=== PATIENT | male | born 1955 | race Caucasian/White ===

== ENCOUNTER 2021-12-13 11:30 | Outpatient (CLI) | payer BC, SELFPAY ==
--- NOTE | ~2021-12-13 | XR_ITS ---
XR knee RT 2V 12/13/2021 11:53 Indication: Chronic right knee pain Procedure: 2 views right knee Comparison: No prior studies for comparison. Findings: There is anatomic alignment. No fracture or traumatic malalignment. No significant joint sp eugene narrowing. Small joint effusion. No foreign bodies. Impression: 1: Small joint effusion. Reviewed, dictated and finalized at location B. Impression: 1: Small joint effusion.
== END 2021-12-13 11:31 | disposition home or self-care (01) ==
LOC: ANHIMG 11:34
PROVIDERS: PCP Family Medicine Adolescent Medicine; Visit Provider Physician Assistant
DX: M25.461 Effusion, right knee (principal)
CPT/HCPCS: 73560

== ENCOUNTER 2023-11-29 11:46 | Emergency (ER) | payer MEDICARE, BC, SELFPAY ==
[2023-11-29] VITALS (28 sets, daily range): BP systolic 142–186; BP diastolic 56–75; PULSE 82–101; RESP 12–24; TEMP 37.1; O2SAT 93–96
--- NOTE | ~2023-11-29 | XR_ITS ---
EXAMINATION: XR chest 2V DATE: 11/29/2023 13:07 INDICATION: Weakness, nausea, vomiting and diarrhea TECHNIQUE: frontal and lateral views of the chest were obtained. COMPARISON: None FINDINGS: The lungs are clear with no focal airspace opacities, pulmonary edema, pleural effusion or pneumothor ax. The cardiomediastinal silhouette is normal. Moderate thoracic and upper lumbar spondylosis with c hronic mild anterior wedging of a few lower thoracic and upper lumbar vertebral bodies. IMPRESSION: 1. No acute cardiopulmonary disease. Reviewed, dictated and finalized at location A.
--- NOTE | ~2023-11-29 | CT_ITS ---
CT abdomen pelvis w con Ordering provider: Xi Mcadams History: 68 years Male with . LLQ tenderness . Comparison: None. Technique: CT abdomen and pelvis with IV and without oral contrast. Automated exposure control and it erative reconstruction technique were employed. The dose-length product was 1528.95 mGy-cm. 100 mL Om nipaque 350 was given IV. Findings: VISUALIZED LOWER CHEST: Dependent atelectatic changes. UPPER ABDOMINAL ORGANS: Liver: Fat infiltration. Hepatomegaly. Multiple small hypodensities in the left and right lobe of the liver with the largest measuring 1.7 cm which may be cysts. Ultrasound confirmation advised. Gallbladder: Cholelithiasis. Spleen: Normal. Stomach/duodenum: Small sliding hiatus hernia. Pancreas: Fat stranding with minimal fluid is seen around the body and tail of the pancreas suggestiv e of pancreatitis. Minimal fluid is also seen inferior to the head and duodenum. No definite collecti on seen. Early possible collection in the left side of the abdomen measuring 5 cm is not excluded.. Adrenals: Prominent left adrenal gland with possible microadenomas. Kidneys: Stones are seen in the left kidney midpole with the largest measuring 5 mm. Bilateral kidney cysts are noted with the largest measures 4.2 cm in the right kidney midpole. Tiny stones are also s een in the right kidney upper and mid pole. PELVIC ORGANS: The bladder is normal. BOWEL AND MESENTERY: Colon: No evidence of diverticulitis. Normal appendix. Small Bowel: Normal. No obstruction. Peritoneum/mesentery: No free air or free fluid. No mesenteric lymphadenopathy. Enlarged lymph nodes are seen around the endometrial anterior spondylolisthesis 1.5 cm and 2.4 cm. RETROPERITONEUM: Mild atheromatous disease of the abdominal aorta. Retroaortic left renal vein is no jessica. No retroperitoneal lymphadenopathy. MUSCULOSKELETAL: Superficial soft tissues: The superficial soft tissues are normal. Bones: Age appropriate degenerative changes of the spine. Old healed fracture in the left lower thora x. Bilateral sacroiliacs. AVN in the right femur is not excluded. Anterolisthesis at the level of L5- S1 with bilateral spondylolysis. IMPRESSION: 1. Pancreatitis involving the body and tail of the pancreas. 2. Inflammatory changes also seen inferior to the patient and the duodenum. Possibility of early col lection in the left upper abdomen is not excluded. Follow-up advised. 3. Lymphadenopathy in the area of hanna hepatis is noted. 4. Fat infiltration of the liver with hepatomegaly and multiple cysts. Ultrasound confirmation advis ed. 5. Cholelithiasis. 6. Bilateral kidney stones with bilateral renal cysts. 7. Small sliding hiatus hernia. Reviewed, dictated and finalized at location A. IMPRESSION: 1. Pancreatitis involving the body and tail of the pancreas. 2. Inflammatory changes also seen inferior to the patient and the duodenum. Po ssibility of early collection in the left upper abdomen is not excluded. Follow -up advised. 3. Lymphadenopathy in the area of hanna hepatis is noted. 4. Fat infiltration of the liver with hepatomegaly and multiple cysts. Ultraso und confirmation advised. 5. Cholelithiasis. 6. Bilateral kidney stones with bilateral renal cysts. 7. Small sliding hiatus hernia.
--- NOTE | 2023-11-29 12:37 | ECG_ITS ---
Test Date: 2023-11-29 12:44:11 Measurements Intervals [place] Rate: 96 P: 21 IN: 158 QRS: -50 QRSD: 121 T: 9 QT: 359 QTc: 454 Interpretive Statements SINUS RHYTHM LEFT ANTERIOR FASCICULAR BLOCK VOLTAGE CRITERIA FOR LVH ABNORMAL ECG No previous ECG available for comparison Electronically Signed On 11-29-2023 15:24:00 CDT by Noé Vela D.O.
[2023-11-29 13:02] LABS: Basophils Percent Auto 0.3 % (0.2-1.2); Eosinophils Percent Auto 0.3 % (0-4.4); Hematocrit 41.5 % (42.0-52.0); Hemoglobin 14.3 g/dL (14.0-18.0); Immature Granulocyte Absolute 0.09 K/mm3 (0.00-0.031); Immature Granulocyte Percent A 0.8 % (0-0.5); Lymphocytes Absolute Auto 1.62 K/mm3 (0.9-3.2); Lymphocytes Percent Auto 15.2 % (18.3-44.2); Mean Corpuscular HGB Conc 34.5 g/dl (32-36); Mean Corpuscular Hemoglobin 31.4 pg (26-34); Mean Platelet Volume 9.9 fl (7.4-10.4); Monocytes Absolute Auto 0.9 K/mm3 (0.1-0.6); Monocytes Percent Auto 8.7 % (2.6-8.5); Neutrophils Percent Auto 74.7 % (45.5-73.1); Platelet Count Result 179 k/mm3 (150-375); Red Blood Count 4.56 M/mm3 (4.6-6.20); Red Cell Distribution Width 12.7 % (11.5-14.5); White Blood Count 10.7 K/mm3 (4.5-10.0)
[2023-11-29 13:11] LABS: Alanine Aminotransferase 69 U/L (6-50); Albumin Level 3.8 g/dL (3.5-5.1); Alkaline Phosphatase 79 U/L (38-126); Anion Gap 10 mmol/L (4-12); Aspartate Amino Transferase 35 U/L (17-59); Bilirubin,Total 1.6 mg/dL (0.2-1.3); Blood Urea Nitrogen 16 mg/dL (9-20); Calcium 8.2 mg/dL (8.4-10.2); Carbon Dioxide 29 mmol/L (22-30); Chloride 90 mmol/L (98-107); Estimated CRCL calculation 91 ml/min; Estimated Glomerular Filt Rate > 60; Glucose 230 mg/dL (65-110); Potassium 3.9 mmol/L (3.4-5.0); Sodium 129 mmol/L (137-145)
--- NOTE | 2023-11-29 13:51 | ED.WEAKNESS ---
HPI - Weakness General Chief complaint: Weakness Stated complaint: weaknes Time Seen by Provider: 11/29/23 13:02 History of Present Illness HPI Narrative: Patient is a 68-year-old male presenting with generalized weakness. His is at bedside and helps with the history. States that he had a GI bug several days ago with vomiting and diarrhea. States that since that time he has only had a very little amount to eat and seems increasingly weaker. He complains of some left lower abdominal pain but otherwise denies complaints other than feeling generally unwell and rundown. Related Data Allergies Allergy/AdvReac Type Severity Reaction Status Date / Time No Known Allergies Allergy Mild Verified 10/05/23 15:43 Review of Systems Review of Systems: All systems reviewed & are unremarkable except as noted in HPI and below PMFSH Past Medical History Medical History Hx of squamous cell carcinoma Neck/Resected 2007 Family History Family History Father Muscular atrophy Mother Breast cancer Grandparent Breast cancer Social History Social History Smoking status: Former smoker Alcohol intake: unknown Exam Narrative: GENERAL: Nontoxic, no acute distress HEAD: Normocephalic, atraumatic. EYES: PERRLA and EOMI. ENT: Mucous membranes a bit dry NECK: Supple. CHEST: Clear to auscultation. No respiratory distress. HEART: Regular rate and rhythm ABDOMEN: Soft, +LLQ tenderness w/o guarding or rebound EXTREMITIES: Normal range of motion. No edema. SKIN: Warm, dry, no rash. NEURO: No focal deficits. Alert and oriented x3. PSYCH: Normal mood and affect. Course Vital Signs Vital signs: Vital Signs Temperature 98.8 F 11/29/23 12:33 Pulse Rate 95 11/29/23 12:33 Blood Pressure 156/56 H 11/29/23 12:33 Pulse Oximetry 95 11/29/23 12:33 Temperature 98.8 F 11/29/23 12:33 Pulse Rate 94 11/29/23 17:00 Respiratory Rate 17 11/29/23 17:00 Blood Pressure 186/69 H 11/29/23 16:31 Pulse Oximetry 95 11/29/23 16:31 MDM - Weakness MDM Narrative Medical decision making narrative: 68-year-old male presenting with generalized weakness. Vitals are within normal limits. EKG per my interpretation shows normal sinus rhythm, no ST elevations or depressions. CT abdomen pelvis is concerning for pancreatitis. His lipase is normal and blood work. White count minimally elevated at 10.7. Patient received IV fluids and was updated on the findings. I offered admission but he declines and states that he wants to p.o. challenge and go home. Patient was able to eat and drink, he has not had any further vomiting and he denies significant pain. He is adamant that he wants to go home, recommend close PCP follow-up. Strict return precautions given. Discharged in stable condition. Differential Diagnosis Differential diagnosis: Likely dehydration and other (weakness, AUBRIE, UTI, pancreatitis, gastroenteritis) Medical Records Attestation: I reviewed the patient's medical records. Lab Data Attestation: I reviewed the patient's lab results. 11/29/23 12:56 11/29/23 12:56 Labs: Lab Results 11/29/23 11/29/23 11/29/23 Range/Units 12:56 13:55 14:41 WBC 10.7 H (4.5-10.0) K/mm3 RBC 4.56 L (4.6-6.20) M/mm3 Hgb 14.3 (14.0-18.0) g/dL Hct 41.5 L (42.0-52.0) % MCV 91.0 (80-100) fl MCH 31.4 (26-34) pg MCHC 34.5 (32-36) g/dl RDW 12.7 (11.5-14.5) % Plt Count 179 (150-375) k/mm3 MPV 9.9 (7.4-10.4) fl Immature Gran % (Auto) 0.8 H (0-0.5) % Neut % (Auto) 74.7 H (45.5-73.1) % Lymph % (Auto) 15.2 L (18.3-44.2) % [place] % (Auto) 8.7 H (2.6-8.5) % Eos % (Auto) 0.3 (0-4.4) % Baso % (Auto) 0.3 (0.2-1.2) % Lymph # (Auto) 1.62 (0.9-3.2) K/m
[2023-11-29] MEDS: SODIUM CHLORIDE 0.9% IV 1,000 ML 999 ML IV CONT ×2 (14:02→15:09)
[2023-11-29 14:15] LABS: Lipase 88 U/L (23-300); Magnesium 2.5 mg/dL (1.6-2.3)
[2023-11-29 14:36] LABS: Influenza A QL RT-PCR Negative (Negative); Influenza B QL RT-PCR Negative (Negative); RSV RNA, RT-PCR Negative (Negative); SARS-CoV-2 RNA PCR Negative (Negative)
[2023-11-29 14:51] LABS: Add Urine Microscopic? YES; Appearance Urine Clear (Clear); Bacteria Urine None Seen /hpf; Bilirubin Urine Negative (Negative); Blood Urine Negative (Negative); Color Urine Dark Yellow (Yellow); Glucose Urine UA Trace mg/dL (Negative); Ketones Urine Trace mg/dL (Negative); Leukocyte Esterase Ur Negative LEU/UL (Negative); Nitrate Urine Negative (Negative); Non Pathogenic Casts 0-2; Protein Urine 2+ mg/dL (Negative); RBC Urine 0-2 /hpf (0-2); Specific Grav Ur 1.042 (1.001-1.035); Squamous Epithelial Cell Urine Occasional /hpf (Few); WBC Urine 0-5 /hpf (0-3); pH Urine 5.5 (5.0-9.0)
--- NOTE | 2023-11-29 16:04 | PC.NURSE ---
Patient given food for PO challenge per verbal order from provider
--- NOTE | 2023-11-29 17:16 | PC.NURSE ---
Patient taken to the restroom via wheelchair
== END 2023-11-29 18:18 | disposition home or self-care (01) ==
PROVIDERS: Emergency Medicine; Emergency Provider Emergency Medicine; PCP Family Medicine Adolescent Medicine
DX: K85.90 Acute pancreatitis without necrosis or infection, unspecified (principal); R53.1 Weakness; Z20.822 Contact with and (suspected) exposure to COVID-19
CPT/HCPCS: 36415; 71046; 74177; 80053; 81001; 83690; 83735; 85025; 87637; 93005; 96360; 96361; 99284; J7030; Q9967

== ENCOUNTER 2024-09-20 19:51 | Inpatient (IN) | payer MEDICARE, BC, SELFPAY ==
--- NOTE | ~2024-09-20 | CT_ITS ---
History: Altered mental status. Bacteremia PROCEDURE: CT head without contrast. COMPARISON: None TECHNIQUE: Axial imaging of the head performed from the skull base to the vertex without IV contrast. Sagittal a nd coronal reformations obtained. DLP: 908 mGy-cm FINDINGS: The ventricles are enlarged. The dilatation of the ventricles is proportional to the degree of sulcal prominence, not uncommon in the senescent brain. Decreased attenuation is identified within the periventricular white matter, likely secondary to micr ovascular ischemic disease, in a patient of this age. There is no mass, mass effect or midline shift. There is no abnormal extra-axial fluid collection or intracranial hemorrhage. Visualized paranasal sinuses are clear. The mastoid air cells are well aerated. No acute displaced fractures within the overlying cranium. Impression: No acute intracranial hemorrhage or suspicious mass effect. Reviewed, dictated and finalized at location A. Impression: No acute intracranial hemorrhage or suspicious mass effect.
--- NOTE | ~2024-09-20 | NM_ITS ---
EXAMINATION: NM_HEPATWOEF_NM DATE: 09/23/2024 13:36 INDICATION: Assess for acute cholecystitis with elevated bilirubin and liver enzymes COMPARISON: None. TECHNIQUE: 5.3 mCi Tc-99m mebrofenin (Choletec) was administered intravenously. Scintigraphic images of the abdomen were obtained for one hour. Additional 4 hour delayed images were obtained. FINDINGS: There is delayed clearance of radiotracer from the blood pool with decreased but still discernible ca rdiac blood pool activity on the 60 minutes of imaging. There is homogeneous tracer uptake by the lito er there is no evident excretion of hepatic activity over the 4 hours of imaging and which given the absence of intra-axial hepatic biliary ductal dilation on the MRCP from one day prior would be consis tent with severe hepatocellular dysfunction. IMPRESSION: 1. Severe hepatocellular dysfunction with no excretion of gallbladder activity rendering assessment for cystic duct obstruction/acute cholecystitis nondiagnostic. Reviewed, dictated and finalized at location A. IMPRESSION: 1. Severe hepatocellular dysfunction with no excretion of gallbladder activity rendering assessment for cystic duct obstruction/acute cholecystitis nondiagno stic.
--- NOTE | ~2024-09-20 | US_ITS ---
Limited abdominal ABDOMINAL ULTRASOUND (Doppler ultrasound interrogation techniques used as needed fo r this exam.) Ordering provider: Frankie Mcgrath MD History: . Total bilirubin is trending up . Comparison: None. FINDINGS: PANCREAS: Normal echotexture and size of the visualized portion. PORTAL VEIN: Hepatopedal flow demonstrated. LIVER: Normal size and increased echogenicity. No perihepatic fluid collections are identified. Cyst is seen in the left lobe of the liver. Hypoechoic area is seen in the dome of the liver measuring 1.4 x 0.9 x 1.2 cm with vascularity.. Further evaluation advised to exclude a mass lesion. BILIARY DUCTS: No intra or extrahepatic biliary dilation. Common bile duct measures 6.4 mm in diamete r which is normal for patient's age. GALLBLADDER: Normal. No stones, sludge, gallbladder wall thickening or pericholecystic fluid. Thickness is 0.3 cm. Negative sonographic Phelan's sign. IVC: Normal. Abdominal aorta: Normal. FREE FLUID: None visualized within the upper abdomen. IMPRESSION: Fat infiltration of the liver. Cyst in the left lobe of the liver. Hypoechoic area in the dome of the liver with vascularity which m ay represent a hemangioma versus a mass. Follow-up and further evaluation advised. Otherwise, normal limited abdominal ultrasound. Reviewed, dictated and finalized at location A. IMPRESSION: Fat infiltration of the liver. Cyst in the left lobe of the liver. Hypoechoic area in the dome of the liver wi th vascularity which may represent a hemangioma versus a mass. Follow-up and fu rther evaluation advised. Otherwise, normal limited abdominal ultrasound.
--- NOTE | ~2024-09-20 | MR_ITS ---
EXAMINATION: MR brain/brain stem wo con DATE: 09/23/2024 11:54 INDICATION: Altered mental status. Bacteremia. TECHNIQUE: Magnetic resonance imaging (MRI) of the brain and brainstem was performed without intraven ous contrast. Sequences included sagittal and axial T1-weighted SE, axial diffusion-weighted FS SE, a xial 3D SWAN, axial T2-weighted FLAIR, and axial T2-weighted FSE. Apparent diffusion coefficient (ADC ) maps were created. COMPARISON: None. FINDINGS: There are no areas of restricted diffusion to suggest acute infarction. No intracranial hemorrhage or abnormal intracranial mass lesion. Minimal periventricular predominant nonspecific increased cerebra l white matter T2-weighted signal intensity is within normal limits for age and likely sequela of chr onic small vessel ischemic disease. There are no intraparenchymal signal abnormalities seen on the ot her pulse sequences. The ventricles are symmetric and normal in size. There are no abnormal extra-axi al fluid collections. Left vertebral artery is dominant. Flow voids are seen in the cerebral arteries on the T2-weighted sequences consistent with their expected patency. Mucosal thickening and small mu cous retention cyst in the paranasal sinuses. Postoperative change of prior right sagittal ethmoidect blair, middle turbinectomy and antral window procedure. Visualized orbits and soft tissues are unremark able. IMPRESSION: 1. Normal for age brain. No acute intracranial process. Reviewed, dictated and finalized at location A.
--- NOTE | ~2024-09-20 | MR_ITS ---
EXAMINATION: MR MRCP wo/w con/w 3D wo ind DATE: 09/22/2024 11:18 INDICATION: Gallstones. Elevated bilirubin. TECHNIQUE: Magnetic resonance imaging (MRI) of the abdomen was performed without and with 20 mL Multi vincent intravenous contrast. Sequences included coronal T2-weighted SS-FSE, coronal T2-weighted FS SS- FSE, coronal T2-weighted FS FIESTA, axial T2-weighted FS FIESTA, axial T2-weighted FIESTA, sagittal T 2-weighted SS-FSE, axial T1-weighted dual-echo FSPGR, axial T2-weighted SS-FSE, axial T1-weighted LAV A, axial T2-weighted STIR FSE. Thick-slab T2-weighted FRFSE-XL images were obtained for magnetic reso nance cholangiopancreatography (MRCP). Rotating maximum intensity projection 3-D reconstructions of t he volumetric data were created by the technologist. Postcontrast sequences included a time course of axial T1-weighted LAVA. COMPARISON: CT dated 09/20/2024 FINDINGS: ABDOMEN MRI: Heart size is normal. No pericardial or pleural effusion. Very small sliding-type hiatal hernia. Hepa tomegaly measuring 26.3 cm in maximal length. Diffuse hepatic steatosis with prominent signal dropout on the post phase imaging. There are multiple small T2 hyperintense, nonenhancing cysts scattered th roughout the liver, the largest 2 in the left hepatic lobe measuring up to 1.0 cm. 1.5 cm T2 hyperint ense lesion with lobular margins in segment 6 of the liver with peripheral puddling of contrast which fills in on the delayed imaging consistent with a hemangioma. There are multiple small low signal in tensity gallstones in the dependent aspect of the normal-appearing gallbladder with no abnormal wall thickening or peristalsis inflammatory stranding. Nonspecific mild splenomegaly measuring 13.5 cm, li suyapa related to body habitus. 2.1 x 1.2 cm thick-walled peripherally enhancing cystic lesion near the tail of the pancreas at the site of prior pancreatitis with prominent inflammatory stranding seen on CT dated 11/29/2023 consistent with secondary pseudocyst formation. Bilateral renal cysts measuring 4.0 cm on the right and 1.4 cm on the left. Visualized portions of bowels are unremarkable including a normal appendix. No pathologically enlarged abdominal or upper pelvic lymphadenopathy. L5 spondylol ysis with bilateral pars intra-articular is defects and 7 mm anterolisthesis on S1. Chronic appearing mild anterior wedging of a few lower thoracic vertebral bodies. T1 hyperintense fat saturating heman gioma at the T10 vertebral body. ABDOMEN MRCP: No intrahepatic biliary ductal dilation. Common bile duct is also normal in caliber measuring up to 4 mm and with tapers smoothly distally with no filling defects to suggest choledocholithiasis. Main pa ncreatic duct is normal in caliber. IMPRESSION: 1. Cholelithiasis without choledocholithiasis or biliary dilation. 2. Hepatomegaly with prominent diffuse hepatic steatosis. 3. 2.1 x 1.2 cm likely pseudocyst related to prior acute pancreatitis along the tail of the pancreas. 4. Very small sliding-type hiatal hernia. Reviewed, dictated and finalized at location A.
--- NOTE | ~2024-09-20 | CT_ITS ---
CLINICAL INDICATION: Transaminitis COMPARISON: 11/29/2023. TECHNIQUE: Multiple contiguous axial images of the abdomen and pelvis were performed following the ad ministration of with 100 mL Omnipaque-350 intravenous contrast The dose-length product (DLP) was 1339.64 mGy-cm. Automated exposure control and iterative reconstruction technique were employed. FINDINGS/OBSERVATIONS: Visualized lower thorax: The bilateral lung bases are clear. The heart is of normal size, without pericardial effusion. Small hiatal hernia is present. Liver: The liver demonstrates homogeneously decreased enhancement and is markedly enlarged measuring 27 cm i n longitudinal dimension. Redemonstration of multiple areas of decreased attenuation. The largest is within segment 6 measuring 14 mm (decreased in size from 17 mm on the previous study) likely a regenerative nodule, common with cirrhosis. Additional smaller areas of decreased attenuation within segments 2 and 3 of the liver, unchanged fro m prior. Gallbladder and biliary system: Multiple stones are identified within the gallbladder, unchanged from prior. The remainder of the gallbladder is otherwise unremarkable. Pancreas: The pancreas enhances homogeneously without ductal dilatation. Caudal to the tail of the pancreas is a rim-enhancing irregular focus of decreased attenuation measur ing 21 x 30 x 27 mm. This focus demonstrates spiculations which may represent early pseudocyst format ion, although carcinoid has a similar morphology when presenting within the mesentery. No calcificati ons are noted. This focus would be amenable to percutaneous biopsy, should that be necessary. This is an interval change from previous examination, which demonstrated significant pancreatic infla mmation. Spleen: The spleen enhances homogeneously and is not enlarged. Kidneys: Redemonstration of a 5 mm nonobstructing calculus projecting within the lower pole of the le ft kidney. An additional 4 mm nonobstructing calculus is identified within the interpolar region of the left kid abi. 4 x 3.6 cm focus of fluid attenuation within the interpolar region of the right kidney, unchanged fro m prior. The remainder of the bilateral kidneys otherwise enhance symmetrically without hydronephrosis or neyda tional renal calculi. Adrenal glands: Unremarkable. Gastrointestinal tract: Rectosigmoid diverticulosis without surrounding inflammatory change. Appendix: The air-filled appendix is of normal caliber (axial series, images 126 through 136). Vasculature: Unremarkable. Lymph nodes: No pathologically enlarged or morphologically suspicious lymph nodes within the retroperitoneum or at the root of the mesentery. Pelvic structures: The bladder is decompressed, limiting its evaluation. The prostate gland is not enlarged. Body wall and musculoskeletal: Fat and likely omental containing umbilical hernia, unchanged from prior. 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 IMPRESSION: Fatty infiltration of a markedly enlarged liver. Cholelithiasis. Findings caudal to the tail of the pancreas for which an early pseudocyst formation versus carcinoid is suspected. Nonobstructing stones within the bilateral kidneys. Reviewed, dictated and finalized at location A. IMPRESSION: Fatty infiltration of a markedly enlarged liver. Cholelithiasis. Findings caudal to the tail of the pancreas for which an early pseudocyst forma tion versus carcinoid is suspected. Nonobstructing stones within the bilateral kidneys.
--- NOTE | ~2024-09-20 | XR_ITS ---
CHEST RADIOGRAPH CLINICAL HISTORY: cp . COMPARISON: 11/29/2023 TECHNIQUE: Single portable view of the chest. FINDINGS The cardiomediastinal silhouette is enlarged, unchanged. The lungs are clear. Prior fracture deformity within the posterior left ribs. IMPRESSION: No focal infiltrate or effusion. Reviewed, dictated and finalized at location A.
--- NOTE | ~2024-09-20 | CT_ITS ---
CTA chest PE protocol Ordering provider: Lisa Robison DO History: 69 years Male with . Elevated D-dimer, tachycardia . Comparison: None. Technique: CT angiogram chest was performed following timed intravenous injection of contrast. Thin s lice axial images and reformatted coronal images were obtained. Three dimensional reformatted images of the chest were also obtained using a [employer] workstation. . Automated exposure control and iterati ve reconstruction technique were employed. The dose-length product was 918.76 mGy-cm. 100 mL Omnipaqu e 350 was given IV. Findings: PULMONARY ARTERIES: No pulmonary embolus. VISUALIZED THORACIC INLET: Normal. MEDIASTINUM: Aorta/coronary arteries: Mild atheromatous disease. Heart/other: The heart is slightly enlarged. Lymph nodes: No mediastinal or hilar adenopathy. LUNGS: Dependent atelectatic changes. No pulmonary nodules or masses. No infiltrates or effusions. No pneumo thorax. VISUALIZED UPPER ABDOMEN: Fat infiltration of the liver. Cholelithiasis. Slightly prominent left adre nal gland suggestive of an adenoma. No follow-up advised unless clinically warranted. Otherwise, the visualized upper abdomen is normal. MUSCULOSKELETAL: Soft tissues: The superficial soft tissues are normal. Bones: Age appropriate degenerative changes of the spine. IMPRESSION: 1. No pulmonary embolism. 2. No acute cardiopulmonary pathology. 3. Fat infiltration of the liver. 4. Cholelithiasis. 5. Left adrenal adenoma. No follow-up advised unless clinically warranted. Reviewed, dictated and finalized at location A.
--- NOTE | 2024-09-20 19:54 | ECG_ITS ---
Test Date: 2024-09-20 19:57:16 Measurements Intervals [place] Rate: 119 P: 21 [place]: 155 QRS: -54 QRSD: 107 T: 20 QT: 331 QTc: 467 Interpretive Statements SINUS TACHYCARDIA LEFT ANTERIOR FASCICULAR BLOCK [QRS AXIS <= -45, QR IN I, RS IN II] MINIMAL VOLTAGE CRITERIA FOR LVH, CONSIDER NORMAL VARIANT [MEETS CRITERIA IN ONE OF: R(aVL), S(V1), R(V5), R(V5/V6)+S(V1)] ABNORMAL ECG Compared to ECG 11/29/2023 12:44:11 HEART RATE INCREASED Electronically Signed On 09-21-2024 07:46:53 CDT by Kwame Anguiano M.D.
[2024-09-20 19:59] VITALS: BP 137/61; PULSE 121; RESP 14; TEMP 36.9; O2SAT 95
--- NOTE | 2024-09-20 20:09 | PC.NURSE ---
per dr madrid, no dose of asa required
[2024-09-20 20:10] LABS: Hematocrit 47.3 % (42.0-52.0); Hemoglobin 16.1 g/dL (14.0-18.0); Immature Granulocyte Percent A 0.5 % (0-0.5); Lymphocytes Absolute Auto 0.75 K/mm3 (0.9-3.2); Mean Corpuscular HGB Conc 34.0 g/dl (32-36); Mean Corpuscular Hemoglobin 30.1 pg (26-34); Mean Corpuscular Volume 88.4 fl (80-100); Nucleated Red Blood Cells Absolute Auto 0.000 K/mm3 (0.0-0.012); Nucleated Red Blood Cells Perc 0.0 % (0.0-0.2); Platelet Count Result 165 k/mm3 (150-375); Red Blood Count 5.35 M/mm3 (4.6-6.20); White Blood Count 7.9 K/mm3 (4.5-10.0)
--- OUTSIDE RECORDS SUMMARY | 2024-09-20 20:10 | XMS_ITS | Referral Summary ---
Author Organization [address] Address [address] [place] [id number] Care Team Providers Care Online Editor Name Role Phone No, Physician Primary Care Provider [phone] Allergies No known active allergies Medications hydrocortisone (WESTCORT) 0.2 % cream 0 Active budesonide-form oteroL (SYMBICORT) 160-4.5 mcg/actuation inhaler INL 2 PFS PO BID 0 Active fluocinonide (LIDEX) 0.05 % external solution Apply daily as needed to rash on scalp 60 mL 3 1 Active pimecrolimus (ELIDEL) 1 % cream Apply topically 2 (two) times a day 30 g 3 2 Active ketoconazole (NIZORAL) 2 % shampoo Apply topically daily Apply to damp skin on scalp, face, and ears, lather, leave on 5 minutes, and rinse 120 mL 3 4 Active triamcinolone (KENALOG) 0.1 % ointmentIndicat ions:Psoriasis vulgaris Apply twice daily as needed to more mild areas of rash such as on arms. Stop when improved and continue with vaseline only. Do not use on face. 80 g 3 4 Active clobetasoL (TEMOVATE) 0.05 % ointmentIndicat ions:Psoriasis vulgaris Apply twice daily as needed to areas of thick red rash on body such as on legs. Do not use on face, armpits, groin. 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 Sexual Orientation Not on file Last Filed Vital Signs Vital Sign Reading Time Taken Comments Blood Pressure 127/96 06/06/2015 10:33 AM CDT Pulse - - Temperature - - Respiratory Rate - - Oxygen Saturation - - Inhaled Oxygen Concentration - - Weight 104.8 kg (231 lb) 06/06/2015 10:33 AM CDT Height 175.3 cm (5' 9) 06/06/2015 10:33 AM CDT Body Mass Index 34.11 06/06/2015 10:33 AM CDT Plan of Treatment Not on file Procedures Procedure Name Priority Date/Time Associated Diagnosis Comments HEPATITIS C ANTIBODY Routine 01/13/2020 2:22 PM CDT Psoriasis vulgaris from Last 3 Months or Most Recently Relevant to Health Maintenance Results * Hepatitis C antibody (01/13/2020 2:22 PM CDT) Hep C Ab Nonreactive Nonreactive [facility] Comment:Antibodies to HCV no t detected. Does NOT exclude the possibility of recent exposure to HCV. Blood specimen (specimen) 01/13/2020 2:22 PM CDT 01/13/2020 3:08 PM CDT us Melissa Garibay MD PhD LAB MICR OBIOLOGY - GENERAL ORDERABLES Edited Result - Final [facility] Department [place] [address] from Last 3 Months or Most Recently Relevant to Health Maintenance Insurance [facility] Member Subscriber Plan / Payer (Ef fective 2023-Present) Name:Rizo Alexandro Michele Relation to Subscriber:Self Name:Sallie Alexandro Michele Payer ID:[id number] (NAIC) Group ID:[id number] Type:[employer] Address: [address] [place] [address] MEDICARE Care Teams Online Editor Relationship Specialty Start Date End Date No, Physician PCP - General 07/29/19
--- OUTSIDE RECORDS SUMMARY | 2024-09-20 20:10 | XMS_ITS | Clinical Summary ---
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 Family History Medical History Relation Name Comments Hypertension Brother Family history of hypertension - (Added by TW Conv) Dementia Mother Family history of dementia - (Added by TW Conv) Diabetes Mother Family history of diabetes mellitus - (Added by TW Conv) Relation Name Status Comments Brother Mother Social History Tobacco Use Types Packs/Day Years Used Date Smoking Tobacco: Former Smokeless Tobacco: Never Tobacco Cessation:Counseling Given: Not Answered Sex and Gender Information Value Date Recorded Sex Assigned at Not on file 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 Gender Identity Male 02/15/2020 9:08 AM 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 Sexual Orientation Not on file Obstetrics History Last Filed Vital Signs Vital Sign Reading [...] 06/06/2015 10:33 AM CDT Plan of Treatment Health Maintenance Due Date Last Done Comments Colon Cancer Screening-Colonoscopy 1956 Depression Screening 1956 Fall Risk Assessment 1956 Prostate Cancer Screening-PSA 1956 DTaP/Tdap/Td Vaccine (1 - Tdap) 09/19/1967 Hepatitis B Screening 1974 Pneumococcal vaccine 65+ (1 of 1 - PCV) 2006 Zoster Vaccine (1 of 2) 2006 Abdominal Aortic Aneurysm (AAA) Screen 2021 Well Visit 65+ 2021 Influenza Vaccine (#1) 2024 Hepatitis C Screening Completed 01/13/2020 Procedures Procedure Name Priority Date/Time Associated Diagnosis Comments HEPATITIS C ANTIBODY Routine 01/13/2020 2:22 PM CDT Psoriasis vulgaris from Last 3 Months or Most Recently Relevant to Health Maintenance Results * Hepatitis C antibody (01/13/2020 2:22 PM CDT) Hep C Ab Nonreactive Nonreactive [facility] Comment:Antibodies to HCV no t detected. Does NOT exclude the possibility of recent exposure to HCV. Blood specimen (specimen) 01/13/2020 2:22 PM CDT 01/13/2020 3:08 PM CDT Melissa Garibay MD PhD LAB MICR OBIOLOGY - GENERAL ORDERABLES Edited Result - Final [facility] [place] [address] from Last 3 Months or Most Recently Relevant to Health Maintenance Insurance [employer] [place] [employer] [place] [employer] [facility] [facility] [employer] Member Subscriber Plan / Payer (Ef fective 2023-Present) Name:Alexandro Rizo Relation to Subscriber:Self Name:Alexandro Rizo Payer ID:[id number] (NAIC) Group ID:[id number] Type:[employer] Address: [address] [place] [address] MEDICARE Care Teams Manager Stars Relationship Specialty Start Date End Date No, Physician PCP - General 07/29/19
[2024-09-20 20:23] LABS: INR 1.0; Partial Thromboplastin Time 22.4 Seconds (22.3-36.8); Prothrombin Time 13.6 Seconds (11.1-14.7)
[2024-09-20 21:08] LABS: Alanine Aminotransferase 402 U/L (6-50); Albumin Level 4.4 g/dL (3.5-5.1); Alkaline Phosphatase 63 U/L (38-126); Anion Gap 16 mmol/L (4-12); Aspartate Amino Transferase 487 U/L (17-59); Bilirubin,Total 2.0 mg/dL (0.2-1.3); Blood Urea Nitrogen 13 mg/dL (9-20); Calcium 9.7 mg/dL (8.4-10.2); Carbon Dioxide 19 mmol/L (22-30); Chloride 100 mmol/L (98-107); Estimated CRCL calculation 66 ml/min; Estimated Glomerular Filt Rate 59; Glucose 342 mg/dL (65-110); Lipase 45 U/L (23-300); Magnesium 1.6 mg/dL (1.6-2.3); Potassium 4.1 mmol/L (3.4-5.0); Sodium 135 mmol/L (137-145); Total Protein 8.2 g/dL (6.3-8.2)
[2024-09-20] MEDS: SODIUM CHLORIDE 0.9% IV 1,000 ML 999 ML IV CONT (21:10)
[2024-09-20 21:20] LABS: Troponin I 0.012 ng/mL (0.000-0.034)
[2024-09-20 22:37] LABS: Add Urine Microscopic? YES; Appearance Urine Cloudy (Clear); Glucose Urine UA 3+ mg/dL (Negative); Leukocyte Esterase Ur Negative LEU/UL (Negative); Need Manual Microscopic Reviewed; Nitrate Urine Negative (Negative); Specific Grav Ur 1.031 (1.001-1.035)
--- NOTE | 2024-09-20 22:46 | ED_ITS ---
HPI - General Adult General Chief complaint: Weakness Stated complaint: FATIGUE, MOBILITY ISSUES Time Seen by Provider: 09/20/24 20:02 History of Present Illness HPI narrative: Patient is a 69-year-old male who presents emergency department this evening via EMS complaining of generalized weakness. Patient himself does not have any specific complaints, he does states that he feels tired and weak. He denies any chest pain, shortness of breath, focal weakness, numbness and tingling, headaches, lightheadedness, or dizziness. Patient also denies any recent illness, fevers or chills, abdominal pain, nausea vomiting, diarrhea or constipation. No additional symptoms or concerns at this time. Related Data Allergies Allergy/AdvReac Type Severity Reaction Status Date / Time No Known Allergies Allergy Mild Verified 10/05/23 15:43 Review of Systems 2 Review of Systems: All systems are reviewed and are negative unless stated otherwise in the HPI. [facility] Past Medical History Medical History Hx of squamous cell carcinoma Neck/Resected 2007 Family History Family History Father Muscular atrophy Mother Breast cancer Grandparent Breast cancer Social History Social History Smoking status: Former smoker Alcohol intake: unknown Exam 2 Narrative: General: Alert, awake, afebrile, in no acute distress, obese. HEENT: PERRL, no rhinorrhea, no post nasal drip, oropharynx clear. Neck: Trachea midline, no JVD, no lymphadenopathy. Cardiovascular: Tachycardic with regular rhythm, no murmurs, rubs or gallops, no peripheral edema. Respiratory: Clear to auscultation bilaterally, no tachypnea, no wheezing, no rhonchi, no rubs, no respiratory distress. Abdomen: Soft, nontender, nondistended, no rebound, no guarding, no peritoneal signs. Musculoskeletal: No joint swelling or deformity, normal muscle tone. Skin: No rashes or petechia, no signs of infection. Psychiatric: Alert and oriented, normal behavior and judgment for situation. Neurological: Alert and oriented to person, place, and time. Follows all commands. No focal deficits, speech is clear and fluent. Course Vital Signs Vital signs: Vital Signs Temperature 98.5 F 09/20/24 19:59 Pulse Rate 121 H 09/20/24 19:59 Respiratory Rate 14 09/20/24 19:59 Blood Pressure 137/61 09/20/24 19:59 Pulse Oximetry 95 09/20/24 19:59 Oxygen Delivery Room Air 09/20/24 19:59 Temperature 98.5 F 09/20/24 19:59 Pulse Rate 102 H 09/20/24 23:19 Respiratory Rate 18 09/20/24 23:19 Blood Pressure 165/74 H 09/20/24 23:19 Pulse Oximetry 95 09/20/24 23:19 Oxygen Delivery Room Air 09/20/24 19:59 Medical Decision Making MDM Narrative Medical decision making narrative: The patient was evaluated by myself in the emergency department. History is obtained from patient who is an independent historian and physical exam was performed. External medical records were reviewed at this time. IV was established and pertinent tests were ordered. Patient was administered 1 L IV fluid bolus with normal saline. EKG was obtained which revealed sinus tachycardia at a rate of 119 beats per minute, no acute ischemia. EKG was independently interpreted by me and is currently pending official cardiology read. Laboratory results obtained revealing transaminitis with an AST of 487 and an ALT of 402, anion gap of 16 with a bicarb of 19, glucose 342 otherwise unremarkable. Urinalysis revealed 3+ glucose, 1+ ketones, 3+ blood and 21-50 RBCs. Initial troponin was 0.012 with a repeat troponin elevated at 0.195. Imaging studies obtained included CXR which was independently interpreted by me revealing no acute cardiopulmonary process, which is pending final radiology interpretation. CT abdomen pelvis with IV contrast was obtained at this time and independently interpreted by me revealing: IMPRESSION: Fatty infiltration of a markedly enlarged liver. Cholelithiasis. Findings caudal to the tail of the pancreas for which an early pseudocyst formation versus carcinoid is suspected. Nonobstructing stones within the bilateral kidneys. Differential diagnosis considerations include acute viral illness, infectious process such as pneumonia/UTI, dehydration, electrolyte derangements, DKA. Comorbidities impacting this visit include none. I have evaluated and discussed social determinants of health with the patient that could potentially impact subsequent diagnosis and treatment plans. On repeat assessment of the patient, reevaluation revealed that the patient is doing well and is in no acute distress. Patient symptoms have improved since he arrived to our emergency department. Repeat vital signs were all reviewed and noted to be stable. Differential diagnosis and treatment plan were discussed with the patient at bedside. Patient agrees with discussion and after shared medical decision making agrees with admission. All questions were answered to the patient's satisfaction. His were discussed with the on-call hospitalist Dr. Robison at [id number] and she recommended adding a D-dimer, if positive, patient will be started on a heparin drip pending CT angio PE protocol in the morning as we do not want to re-dose him with contrast today. Patient's dimer was elevated at 1.05. At this time he was started on heparin drip with dosing for NSTEMI pending CTA in the morning for further evaluation for PE. At this time, was found to be at bedside and she was updated regarding patient's current status. 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 States that she feels as though his knees are shot from getting in and out of the truck for many years. In the past 2, patient has not been doing anything, just sitting in a couch. Does not walk or exercise or move and has been progressively getting weaker and weaker. She states the only thing that he does is walk from the couch to the bathroom and back. Today she had to go help him get out of the toilet seat as he was so weak he could not even walk. She believes that he needs acute rehab therapy/PT/OT. Critical care time of 47 minutes, exclusive of separately performed procedures, necessary for treating or preventing eminent or life-threatening deterioration of patient's condition of some requiring IV heparin therapy, focused on patient care provided personally by me and time spent during initial evaluation, physical examination, ordering and performing treatments and interventions, ordering and reviewing laboratory studies, ordering and reviewing radiographic studies, re-evaluation of the patient's condition, evaluation of the patient's response to treatment, and discussion of patient case with multiple consultants. Vital Signs Vital Signs: Vital Signs Temperature 98.5 F 09/20/24 19:59 Pulse Rate 121 H 09/20/24 19:59 Respiratory Rate 14 09/20/24 19:59 Blood Pressure 137/61 09/20/24 19:59 Pulse Oximetry 95 09/20/24 19:59 Oxygen Delivery Room Air 09/20/24 19:59 Temperature 98.5 F 09/20/24 19:59 Pulse Rate 102 H 09/20/24 23:19 Respiratory Rate 18 09/20/24 23:19 Blood Pressure 165/74 H 09/20/24 23:19 Pulse Oximetry 95 09/20/24 23:19 Oxygen Delivery Room Air 09/20/24 19:59 Lab Data 09/20/24 20:04 09/20/24 20:04 Labs: Lab Results 09/20/24 09/20/24 09/20/24 Range/Units 20:04 20:04 22:06 WBC 7.9 (4.5-10.0) K/mm3 RBC 5.35 (4.6-6.20) M/mm3 Hgb 16.1 (14.0-18.0) g/dL Hct 47.3 (42.0-52.0) % MCV 88.4 (80-100) fl MCH 30.1 (26-34) pg MCHC 34.0 (32-36) g/dl RDW 12.9 (11.5-14.5) % Plt Count 165 (150-375) k/mm3 MPV 9.3 (7.4-10.4) fl Immature Gran % (Auto) 0.5 (0-0.5) % Neut % (Auto) 82.7 H (45.5-73.1) % Lymph % (Auto) 9.5 L (18.3-44.2) % [place] % (Auto) 6.7 (2.6-8.5) % Eos % (Auto) 0.1 (0-4.4) % Baso % (Auto) 0.5 (0.2-1.2) % Lymph # (Auto) 0.75 L (0.9-3.2) K/mm3 [place] # (Auto) 0.5 (0.1-0.6) K/mm3 Eos # (Auto) 0.0 (0-0.3) K/mm3 Baso # (Auto) 0.0 (0.0-0.1) K/mm3 Abs Immat Gran (auto) 0.04 H (0.00-0.031) K/mm3 Absolute Neuts (auto) 6.6 (1.3-6.7) K/mm3 Absolute Nucleated RBC 0.000 (0.0-0.012) K/mm3 Nucleated RBC % 0.0 (0.0-0.2) % PT 13.6 (11.1-14.7) Seconds INR 1.0 APTT 22.4 (22.3-36.8) Seconds D-Dimer 1.05 H (<0.48) ug/mL Sodium 135 L (137-145) mmol/L Potassium 4.1 (3.4-5.0) mmol/L Chloride 100 (98-107) mmol/L Carbon Dioxide 19 L (22-30) mmol/L Anion Gap 16 H (4-12) mmol/L BUN 13 (9-20) mg/dL Creatinine 1.23 (0.7-1.3) mg/dL Estim Creat Clear Calc 66 ml/min Estimated GFR 59 (59 - ) Glucose 342 H (65-110) mg/dL Calcium 9.7 (8.4-10.2) mg/dL Magnesium 1.6 Cancelled (1.6-2.3) mg/dL Total Bilirubin 2.0 H (0.2-1.3) mg/dL AST 487 H (17-59) U/L ALT 402 H (6-50) U/L Alkaline Phosphatase 63 (38-126) U/L Total Creatine Kinase (55-170) U/L Troponin I 0.012 (0.000-0.034) ng/mL Total Protein 8.2 (6.3-8.2) g/dL Albumin 4.4 (3.5-5.1) g/dL Lipase 45 (23-300) U/L Urine Color Dark yellow (Yellow) Urine Appearance Cloudy H (Clear) Urine pH 5.0 (5.0-9.0) Ur Specific [place] 1.031 (1.001-1.035) Urine Protein 2+ H (Negative) mg/dL Urine Glucose (UA) 3+ H (Negative) mg/dL Urine Ketones 1+ H (Negative) mg/dL Ur Blood (Man) 3+ H (Negative) Urine Nitrate Negative (Negative) Urine Bilirubin 1+ H (Negative) Urine Urobilinogen 1.0 (<2.0) mg/dL Add Ur Microanalysis Reviewed Leukocyte Esterase Rfl Negative (Negative) ANDREA/UL Urine RBC 21-50 H (0-2) /hpf Urine WBC 0-5 (0-3) /hpf Ur Squamous Epith Cells Occasional (Few) /hpf Urine Bacteria None seen /hpf Urine Casts 11-20 Hyaline Casts Present (None) /lpf 09/20/24 Range/Units 23:12 WBC (4.5-10.0) K/mm3 RBC (4.6-6.20) M/mm3 Hgb (14.0-18.0) g/dL Hct (42.0-52.0) % MCV (80-100) fl MCH (26-34) pg MCHC (32-36) g/dl RDW (11.5-14.5) % Plt Count (150-375) k/mm3 MPV (7.4-10.4) fl Immature Gran % (Auto) (0-0.5) % Neut % (Auto) (45.5-73.1) % Lymph % (Auto) (18.3-44.2) % [place] % (Auto) (2.6-8.5) % Eos % (Auto) (0-4.4) % Baso % (Auto) (0.2-1.2) % Lymph # (Auto) (0.9-3.2) K/mm3 [place] # (Auto) (0.1-0.6) K/mm3 Eos # (Auto) (0-0.3) K/mm3 Baso # (Auto) (0.0-0.1) K/mm3 Abs Immat Gran (auto) (0.00-0.031) K/mm3 Absolute Neuts (auto) (1.3-6.7) K/mm3 Absolute Nucleated RBC (0.0-0.012) K/mm3 Nucleated RBC % (0.0-0.2) % PT (11.1-14.7) Seconds INR APTT (22.3-36.8) Seconds D-Dimer (<0.48) ug/mL Sodium (137-145) mmol/L Potassium (3.4-5.0) mmol/L Chloride (98-107) mmol/L Carbon Dioxide (22-30) mmol/L Anion Gap (4-12) mmol/L BUN (9-20) mg/dL Creatinine (0.7-1.3) mg/dL Estim Creat Clear Calc ml/min Estimated GFR (59 - ) Glucose (65-110) mg/dL Calcium (8.4-10.2) mg/dL Magnesium (1.6-2.3) mg/dL Total Bilirubin (0.2-1.3) mg/dL AST (17-59) U/L ALT (6-50) U/L Alkaline Phosphatase (38-126) U/L Total Creatine Kinase 319 H (55-170) U/L Troponin I 0.195 H* D (0.000-0.034) ng/mL Total Protein (6.3-8.2) g/dL Albumin (3.5-5.1) g/dL Lipase (23-300) U/L Urine Color (Yellow) Urine Appearance (Clear) Urine pH (5.0-9.0) Ur Specific [place] (1.001-1.035) Urine Protein (Negative) mg/dL Urine Glucose (UA) (Negative) mg/dL Urine Ketones (Negative) mg/dL Ur Blood (Man) (Negative) Urine Nitrate (Negative) Urine Bilirubin (Negative) Urine Urobilinogen (<2.0) mg/dL Add Ur Microanalysis Leukocyte Esterase Rfl (Negative) ANDREA/UL Urine RBC (0-2) /hpf Urine WBC (0-3) /hpf Ur Squamous Epith Cells (Few) /hpf Urine Bacteria /hpf Urine Casts Hyaline Casts (None) /lpf Critical Care Time Critical Care Time Critical Care Time: Yes Total Critical Care Time: 47 (Please refer to [facility] for attestation.) Discharge Plan Discharge Clinical Impression: Non-ST elevation [place] (NSTEMI), Adult failure to thrive, Transaminitis, Generalized weakness Patient Disposition: Still a Patient Condition: Improved Patient Language: Bahamian Prescriptions: No Action clonazepam 1 mg tablet 1 mg PO BID Qty: 40 0RF levofloxacin 500 mg tablet 500 mg PO DAILY Qty: 10 0RF diclofenac sodium 75 mg tablet,delayed release (DR/EC) 75 mg PO BID Qty: 60 3RF Follow-up/Referrals: Roberto Simon MD [Primary Care Provider] -
--- NOTE | 2024-09-20 23:01 | ECG_ITS ---
Test Date: 2024-09-20 23:13:55 Measurements Intervals [place] Rate: 99 P: 14 WA: 171 QRS: -41 QRSD: 117 T: -7 QT: 350 QTc: 449 Interpretive Statements SINUS RHYTHM LEFT AXIS DEVIATION [QRS AXIS < -30] LEFT ANTERIOR FASCICULAR BLOCK ABNORMAL ECG COMPARED WITH EARLIER TODAY NO DIFFERENCE Electronically Signed On 09-21-2024 07:50:06 CDT by Kwame Anguiano M.D.
--- NOTE | 2024-09-20 23:13 | PC.NURSE ---
report taken from Kiley COONEY.
[2024-09-20 23:19] VITALS: BP 165/74; PULSE 102; RESP 18; O2SAT 95
[2024-09-20 23:30] VITALS: PULSE 104
[2024-09-20 23:45] VITALS: O2SAT 94
[2024-09-20 23:54] LABS: Troponin I 0.195 ng/mL (0.000-0.034)
[2024-09-21] VITALS (21 sets, daily range): BP systolic 116–195; BP diastolic 50–70; PULSE 82–101; RESP 16–22; TEMP 36.8–37.7; O2SAT 93–96; BMI 37.3; BMI 38.4
--- NOTE | 2024-09-21 | ECHO_ITS ---
Patient Info Name: Alexandro Rioz Age: 69 years : 1955 Gender: Male Ht: 69 in Wt: 260 lbs BSA: 2.45 m2 HR: 81 bpm BP: 142 / 51 mmHg Technical Quality: Good Exam Date: 09/21/2024 10:32 AM Patient Status: I Admit Date: 09/21/2024 Exam Type: CA echo doppler color flow Complete two-dimensional, color flow and Doppler transthoracic echocardiogram is performed. Staff Referring Physician: Frankie Mcgrath Component Assembler Supervisor: Hanna White Attending Provider: Lisa Robison DO Summary 1. Complete two-dimensional, color flow and Doppler transthoracic echocardiogram is performed. 2. There is normal biventricular size and systolic function. 3. There is mild mitral valve prolapse. There is no significant mitral regurgitation. Left Ventricle The left ventricle is normal in size and systolic function. The left ventricular ejection fraction is visually estimated to be 60-65%. There are no regional wall motion abnormalities. Right Ventricle The right ventricle is normal in size and systolic function. Aortic Valve The aortic valve is trileaflet and opens well. There is trace aortic regurgitation. Pulmonic Valve The pulmonic valve is not well visualized. Mitral Valve There is mild prolapse of the anterior mitral valve leaflet. There is no significant mitral regurgitation. There is no mitral stenosis. Tricuspid Valve The tricuspid valve is grossly normal. There is no tricuspid regurgitation. Pericardium/Pleural Prominent epicardial fat pad. Inferior Vena Cava Inferior vena cava is not well visualized. Aorta The aortic root at the level of the sinus of Valsalva measures 3.4 cm in diameter. Left Ventricular Outflow Tract Name Value Normal LVOT 2D LVOT Diameter 2.0 cm LVOT Doppler LVOT Peak Velocity 199 cm/s LVOT Peak Gradient 16 mmHg LVOT Mean Gradient 11 mmHg LVOT VTI 45 cm LVOT VTI/AV VTI Ratio 0.9 LVOT Stroke Volume 143 ml LVOT CO 10.7 l/min LVOT CI 4.4 l/min/m2 Pulmonic Valve Name Value Normal RVOT Doppler RVOT Peak Velocity 96 cm/s RVOT Peak Gradient 4 mmHg PV Doppler PV Peak Velocity 112 cm/s PV Peak Gradient 5 mmHg Mitral Valve Name Value Normal MV Diastolic Function MV E Peak Velocity 119 cm/s MV A Peak Velocity 105 cm/s MV E/A 1.1 MV Decel Time (PW) 210 ms MV Annular TDI MV E/e' (Septal) 11.1 MV E/e' (Lateral) 10.2 MV E/e' (Average) 10.7 Aortic Valve Name Value Normal AV Doppler AV Peak Velocity 245 cm/s AV Peak Gradient 24 mmHg AV Mean Gradient 14 mmHg AV VTI 52 cm AV Area (Cont Eq VTI) 2.7 cm2 >=3.0 AV Area (Cont Eq Chase) 2.6 cm2 AV DI (Chase) 0.81 AV Regurgitation 2D LVOT Area 3.2 cm2 Ventricles Name Value Normal LV Dimensions 2D/MM IVS Diastolic Thickness (2D) 0.9 cm 0.6-1.0 LVID Diastole (2D) 5.4 cm 4.2-5.8 LVIW Diastolic Thickness (2D) 1.3 cm 0.6-1.0 LVID Systole (2D) 3.0 cm 2.5-4.0 LVOT Diameter 2.0 cm LV Mass (2D Cubed) 243.37 g 88.00-224.00 LV Mass Index (2D Cubed) 99 g/m2 49-115 Relative Wall Thickness (2D) 0.49 <=0.42 LV Fractional Shortening/Ejection Fraction 2D/MM LV Fractional Shortening (2D) 45 % 25-43 LV EF (2D Teichholz) 76 % LV Diastolic Volume (4C MOD) 194 ml LV EF (4C MOD) 67 % LV Diastolic Volume (2C MOD) 125 ml LV EF (2C MOD) 60 % LV Diastolic Volume (BP MOD) 165 ml 62-150 LV Diastolic Volume Index (BP MOD) 68 ml/m2 34-74 LV Systolic Volume (BP MOD) 57 ml 21-61 LV Systolic Volume Index (BP MOD) 23 ml/m2 11-31 LV EF (BP MOD) 66 % 52-72 LV Diastolic Length (4C) 10.2 cm LV Systolic Length (4C) 7.8 cm LV Stroke Volume (4C MOD) 130 ml Atria Name Value Normal LA Dimensions LA Volume (4C A-L) 66 ml RA Dimensions RA Systolic Major [place] Length (4C) 4.6 cm 2.1-2.7 RA Area (4C) 10.1 cm2 <=18.0 Report Signatures
[2024-09-21 00:23] LABS: Creatine Kinase 319 U/L (55-170)
[2024-09-21] MEDS: SODIUM CHLORIDE 0.9% IV 1,000 ML 999 ML IV CONT ×2 (00:29→02:29)
[2024-09-21] MEDS: SODIUM CHLORIDE 0.9% IV 1,000 ML 100 ML IV CONT (00:32)
[2024-09-21 00:52] LABS: Hematocrit 44.7 % (42.0-52.0); Hemoglobin 15.2 g/dL (14.0-18.0); Immature Granulocyte Percent A 0.8 % (0-0.5); Immature Platelet Fraction Pct 2.3 % (0.9-11.2); Lymphocytes Absolute Auto 0.94 K/mm3 (0.9-3.2); Mean Corpuscular HGB Conc 34.0 g/dl (32-36); Mean Corpuscular Hemoglobin 30.3 pg (26-34); Mean Corpuscular Volume 89.0 fl (80-100); Nucleated Red Blood Cells Absolute Auto 0.000 K/mm3 (0.0-0.012); Nucleated Red Blood Cells Perc 0.0 % (0.0-0.2); Platelet Count Result 137 k/mm3 (150-375); Red Blood Count 5.02 M/mm3 (4.6-6.20); White Blood Count 6.2 K/mm3 (4.5-10.0)
[2024-09-21 01:03] LABS: Hemoglobin A1C 10.6 % (<5.7)
[2024-09-21 01:05] LABS: INR 1.1; Prothrombin Time 14.0 Seconds (11.1-14.7)
[2024-09-21 01:06] LABS: Partial Thromboplastin Time 27.0 Seconds (22.3-36.8)
[2024-09-21] MEDS: HEPARIN SOD/D5W 100 UNITS/ML 25,000 UNITS/250 ML BAG 10 UNITS IV CONT (01:35)
--- NOTE | 2024-09-21 02:00 | ECG_ITS ---
Test Date: 2024-09-21 02:19:32 Measurements Intervals [place] Rate: 96 P: 10 NM: 159 QRS: -36 QRSD: 121 T: -8 QT: 361 QTc: 457 Interpretive Statements SINUS RHYTHM LEFT AXIS DEVIATION [QRS AXIS < -30] MODERATE INTRAVENTRICULAR CONDUCTION DELAY [110+ ms QRS DURATION] Compared to ECG 09/20/2024 23:13:55 ABNORMAL ECG COMPARED WITH EARLIER TODAY STILL NO DIFFERENCE Electronically Signed On 09-21-2024 07:52:52 CDT by Kwame Anguiano M.D.
[2024-09-21 02:58] LABS: Troponin I 0.490 ng/mL (0.000-0.034)
--- NOTE | 2024-09-21 03:06 | PC.NURSE ---
This RN went into pt room and noticed pt had ripped L forearm IV out and had blood saturating his gown. When this RN asked what happened pt states he did not even notice. Pt was changed and new IV was placed in L forearm.
--- NOTE | 2024-09-21 03:14 | PC.NURSE ---
This RN called and spoke to pt and gave update on pt status and room number.
--- NOTE | 2024-09-21 04:07 | PM.IMHP ---
H&P: HPI History of Present Illness Date/Time: 09/21/24 04:07 Chief Complaint: Increased weakness Narrative: 69-year-old male with a past medical history of psoriatic arthritis on immune modulator therapy and obesity who presented to the ER from home via EMS due to increased weakness. Patient self is a poor historian despite being oriented to person place time and current events. As such the patient's provided some limited history. The patient only complained of being tired and weak. When I asked him will what brought him into the ER he would not be eye contact and would stare off into space. The patient's reports that the patient retired from the [employer] service 1 year ago. 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 Since he is retired the patient is simply sits in the chair in does not do much of anything. He does not exercise or walk. He has become progressively weaker and weaker. He only gets up to walk from the couch to the bathroom and back. Today he was unable to get up off of the toilet. She brought him into the ER because she felt he needed PT and OT evaluation and possible rehab placement. On arrival to the ER the patient was tachycardic and had a low-grade temperature at 99.9?. He had a normal white count. But his initial electrolyte panel did demonstrate anion gap with low serum bicarb and hyperglycemia with glucoses close 350. The patient and his denies the patient having history of diabetes. As he also had transaminitis with hyperbilirubinemia. He denied any abdominal pain, nausea or vomiting. However the patient did have an emesis bag at bedside. The patient had a CK just barely elevated above cutoff for normal. Initial troponin was negative with repeat troponins elevated. However EKG did not demonstrate evidence of acute ischemia in the patient denied chest pain. Review of Systems Review of Systems: Patient had a flat affect and was poor historian with review of systems unreliable. [facility]LY [facility] Past Medical History Medical History (Updated 09/21/24 @ 09:48 by Lisa Robison DO) Obesity (BMI 30-39.9) Hx of squamous cell carcinoma Neck/Resected 2007 Surgical History Surgical History (Updated 09/21/24 @ 09:25 by Lisa Robison DO) Status post surgical removal of malignant neoplasm of skin (~2007) Family History Family History Father Muscular atrophy Mother Breast cancer Grandparent Breast cancer Social History Social History (Updated 09/21/24 @ 09:26 by Lisa Robison DO) Social History: Code status: Full code (per EMR) Surrogate decision maker: Smoking packs per day: 2 Smoking cigarettes per day: 40.0 Smoking status: Former smoker Tobacco type: cigarettes Alcohol intake: never Substance use: never Do You Feel Safe in your Home?: Yes Lack of Transportation: No Lack of Food: Never True Current Housing: I Have Housing Concerned About Future Housing: No Difficulty Paying Gas/Electric Bills: No Difficulty Paying for Meds: No Currently Unemployed: No Education: High School Diploma/GED Difficulty w/ Childcare or Family Care: No Additional living arrangements comments: Lives with . 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 Spiritual care concerns: No Meds Home Medications and Allergies Home Medications ?Medication ?Instructions ?Recorded ?Confirmed ?Type ustekinumab 90 mg/mL subcutaneous mg subcut 09/21/24 History syringe (Stelara) Allergies Allergy/AdvReac Type Severity Reaction Status Date / Time No Known Allergies Allergy Mild Verified 10/05/23 15:43 Vital Signs Vital Signs - 24 hr 09/20/24 19:59 09/20/24 19:59 09/20/24 23:19 Temperature 98.5 F Pulse Rate 121 H 102 H Respiratory Rate 14 18 Blood Pressure 137/61 165/74 H Pulse Oximetry 95 95 95 Oxygen Delivery Room Air Room Air 09/20/24 23:30 09/20/24 23:45 09/21/24 02:15 Temperature Pulse Rate 104 H 97 Respiratory Rate 17 Blood Pressure 116/70 Pulse Oximetry 94 94 Oxygen Delivery Room Air 09/21/24 03:26 Temperature Pulse Rate 101 H Respiratory Rate 18 Blood Pressure 116/70 Pulse Oximetry 94 Oxygen Delivery Exam Narrative: Weight 118 kg BMI 38.4 Const: Other: Obese, debilitated HENMT: Other: Mucous membranes are tacky, no oral pharyngeal erythema, crowded posterior oropharynx Eyes: Other: Pupils are equal and reactive, no scleral icterus, no conjunctival pallor Neck: Other: No JVD, large neck circumference, no lymphadenopathy Resp: Other: Clear to auscultation bilaterally, no increased work of breathing Cardio: Other: Mildly tachycardic, regular rhythm, 2+ bilateral radial pedal pulses, no murmur GI: Other: Obese, soft, nontender Skin: Other: Generalized pallor, petechiae to the dorsum of bilateral arms Neuro: Other: Patient is alert oriented person place and time name of the current president, he has no gross motor deficits noted, speech is clear and slow, no facial asymmetry, he has conjugate gaze pupils are equal and reactive Extrem: Other: No clubbing, cyanosis or edema, 3/5 strength on straight leg raise bilaterally, generalized wasting noted of the quadriceps bilaterally, wasting of the intrinsic muscles of the hand bilaterally, 4/5 metal solderer strength bilaterally 2 to 3/5 strength on extension of the fingers and wrists Psych: Other: Flat affect, cooperative, avoids eye contact, slowed speech, slowed movement H&P: Results Labs Labs: Laboratory Tests 09/21/24 04:10 09/21/24 04:10 09/20/24 09/20/24 09/20/24 20:04 20:04 22:06 WBC 7.9 RBC 5.35 Hgb 16.1 Hct 47.3 MCV 88.4 MCH 30.1 MCHC 34.0 RDW 12.9 Plt Count 165 MPV 9.3 Immature Gran % (Auto) 0.5 Neut % (Auto) 82.7 H Lymph % (Auto) 9.5 L [place] % (Auto) 6.7 Eos % (Auto) 0.1 Baso % (Auto) 0.5 Lymph # (Auto) 0.75 L [place] # (Auto) 0.5 Eos # (Auto) 0.0 Baso # (Auto) 0.0 Abs Immat Gran (auto) 0.04 H Absolute Neuts (auto) 6.6 Absolute Nucleated RBC 0.000 Nucleated RBC % 0.0 % Immature Plt Fraction PT 13.6 INR 1.0 APTT 22.4 D-Dimer 1.05 H Sodium 135 L Potassium 4.1 Chloride 100 Carbon Dioxide 19 L Anion Gap 16 H BUN 13 Creatinine 1.23 Estim Creat Clear Calc 66 Estimated GFR 59 Glucose 342 H POC Capillary Glucose Hemoglobin A1c Lactic Acid Calcium 9.7 Magnesium 1.6 Cancelled Ferritin Total Bilirubin 2.0 H AST 487 H ALT 402 H Alkaline Phosphatase 63 Ammonia Total Creatine Kinase Troponin I 0.012 Total Protein 8.2 Albumin 4.4 Lipase 45 Beta-Hydroxybutyrate/Acetoacetate TSH (Reflex) Urine Color Dark yellow Urine Appearance Cloudy H Urine pH 5.0 Ur Specific [place] 1.031 Urine Protein 2+ H Urine Glucose (UA) 3+ H Urine Ketones 1+ H Ur Blood (Man) 3+ H Urine Nitrate Negative Urine Bilirubin 1+ H Urine Urobilinogen 1.0 Add Ur Microanalysis Reviewed Leukocyte Esterase Rfl Negative Urine RBC 21-50 H Urine WBC 0-5 Ur Squamous Epith Cells Occasional Urine Bacteria None seen Urine Casts 11-20 Hyaline Casts Present Hepatitis A IgM Ab Hep Bs Antigen Hep B Core IgM Ab Hepatitis C Ab Screen Influenza A (RT-PCR) Influenza B (RT-PCR) RSV (RT-PCR) SARS-CoV-2 RNA (RT-PCR) 09/20/24 09/21/24 09/21/24 23:12 00:44 02:15 WBC 6.2 RBC 5.02 Hgb 15.2 Hct 44.7 MCV 89.0 MCH 30.3 MCHC 34.0 RDW 13.0 Plt Count 137 L MPV 9.5 Immature Gran % (Auto) 0.8 H Neut % (Auto) 77.9 H Lymph % (Auto) 15.2 L [place] % (Auto) 5.3 Eos % (Auto) 0.2 Baso % (Auto) 0.6 Lymph # (Auto) 0.94 [place] # (Auto) 0.3 Eos # (Auto) 0.0 Baso # (Auto) 0.0 Abs Immat Gran (auto) 0.05 H Absolute Neuts (auto) 4.8 Absolute Nucleated RBC 0.000 Nucleated RBC % 0.0 % Immature Plt Fraction 2.3 PT 14.0 INR 1.1 APTT 27.0 D-Dimer Sodium Potassium Chloride Carbon Dioxide Anion Gap BUN Creatinine Estim Creat Clear Calc Estimated GFR Glucose POC Capillary Glucose 300 H Hemoglobin A1c 10.6 H Lactic Acid 4.0 H Calcium Magnesium Ferritin Total Bilirubin AST ALT Alkaline Phosphatase Ammonia Total Creatine Kinase 319 H Troponin I 0.195 H* D Total Protein Albumin Lipase Beta-Hydroxybutyrate/Acetoacetate TSH (Reflex) Urine Color Urine Appearance Urine pH Ur Specific [place] Urine Protein Urine Glucose (UA) Urine Ketones Ur Blood (Man) Urine Nitrate Urine Bilirubin Urine Urobilinogen Add Ur Microanalysis Leukocyte Esterase Rfl Urine RBC Urine WBC Ur Squamous Epith Cells Urine Bacteria Urine Casts Hyaline Casts Hepatitis A IgM Ab Hep Bs Antigen Hep B Core IgM Ab Hepatitis C Ab Screen Influenza A (RT-PCR) Influenza B (RT-PCR) RSV (RT-PCR) SARS-CoV-2 RNA (RT-PCR) 09/21/24 09/21/24 09/21/24 02:20 04:01 04:10 WBC 5.7 RBC 4.54 L Hgb 13.8 L Hct 41.0 L MCV 90.3 MCH 30.4 MCHC 33.7 RDW 13.1 Plt Count 110 L MPV 9.3 Immature Gran % (Auto) 0.5 Neut % (Auto) 74.8 H Lymph % (Auto) 16.8 L [place] % (Auto) 7.2 Eos % (Auto) 0.2 Baso % (Auto) 0.5 Lymph # (Auto) 0.96 [place] # (Auto) 0.4 Eos # (Auto) 0.0 Baso # (Auto) 0.0 Abs Immat Gran (auto) 0.03 Absolute Neuts (auto) 4.3 Absolute Nucleated RBC 0.000 Nucleated RBC % 0.0 % Immature Plt Fraction 1.8 PT INR APTT D-Dimer Sodium 136 L Potassium 3.9 Chloride 105 Carbon Dioxide 22 Anion Gap 9 BUN 10 Creatinine 0.88 Estim Creat Clear Calc 89 Estimated GFR > 60 Glucose 259 H POC Capillary Glucose Hemoglobin A1c Lactic Acid Calcium 8.2 L Magnesium Ferritin Pending Total Bilirubin 2.4 H AST 247 H ALT 284 H Alkaline Phosphatase 46 Ammonia < 9 L Total Creatine Kinase Troponin I 0.490 H* D Total Protein 6.7 Albumin 3.6 Lipase Beta-Hydroxybutyrate/Acetoacetate 0.32 H TSH (Reflex) 1.390 Urine Color Urine Appearance Urine pH Ur Specific [place] Urine Protein Urine Glucose (UA) Urine Ketones Ur Blood (Man) Urine Nitrate Urine Bilirubin Urine Urobilinogen Add Ur Microanalysis Leukocyte Esterase Rfl Urine RBC Urine WBC Ur Squamous Epith Cells Urine Bacteria Urine Casts Hyaline Casts Hepatitis A IgM Ab Negative Hep Bs Antigen Negative Hep B Core IgM Ab Negative Hepatitis C Ab Screen Negative Influenza A (RT-PCR) Influenza B (RT-PCR) RSV (RT-PCR) SARS-CoV-2 RNA (RT-PCR) 09/21/24 09/21/24 09/21/24 04:58 07:16 07:17 WBC RBC Hgb Hct MCV MCH MCHC RDW Plt Count MPV Immature Gran % (Auto) Neut % (Auto) Lymph % (Auto) [place] % (Auto) Eos % (Auto) Baso % (Auto) Lymph # (Auto) [place] # (Auto) Eos # (Auto) Baso # (Auto) Abs Immat Gran (auto) Absolute Neuts (auto) Absolute Nucleated RBC Nucleated RBC % % Immature Plt Fraction PT INR APTT 39.5 H D-Dimer Sodium Potassium Chloride Carbon Dioxide Anion Gap BUN Creatinine Estim Creat Clear Calc Estimated GFR Glucose POC Capillary Glucose Hemoglobin A1c Lactic Acid 1.5 Calcium Magnesium Ferritin Total Bilirubin AST ALT Alkaline Phosphatase Ammonia Total Creatine Kinase Troponin I Total Protein Albumin Lipase Beta-Hydroxybutyrate/Acetoacetate TSH (Reflex) Urine Color Urine Appearance Urine pH Ur Specific [place] Urine Protein Urine Glucose (UA) Urine Ketones Ur Blood (Man) Urine Nitrate Urine Bilirubin Urine Urobilinogen Add Ur Microanalysis Leukocyte Esterase Rfl Urine RBC Urine WBC Ur Squamous Epith Cells Urine Bacteria Urine Casts Hyaline Casts Hepatitis A IgM Ab Hep Bs Antigen Hep B Core IgM Ab Hepatitis C Ab Screen Influenza A (RT-PCR) Negative Influenza B (RT-PCR) Negative RSV (RT-PCR) Negative SARS-CoV-2 RNA (RT-PCR) Negative 09/21/24 07:34 WBC RBC Hgb Hct MCV MCH MCHC RDW Plt Count MPV Immature Gran % (Auto) Neut % (Auto) Lymph % (Auto) [place] % (Auto) Eos % (Auto) Baso % (Auto) Lymph # (Auto) [place] # (Auto) Eos # (Auto) Baso # (Auto) Abs Immat Gran (auto) Absolute Neuts (auto) Absolute Nucleated RBC Nucleated RBC % % Immature Plt Fraction PT INR APTT D-Dimer Sodium Potassium Chloride Carbon Dioxide Anion Gap BUN Creatinine Estim Creat Clear Calc Estimated GFR Glucose POC Capillary Glucose 286 H Hemoglobin A1c Lactic Acid Calcium Magnesium Ferritin Total Bilirubin AST ALT Alkaline Phosphatase Ammonia Total Creatine Kinase Troponin I Total Protein Albumin Lipase Beta-Hydroxybutyrate/Acetoacetate TSH (Reflex) Urine Color Urine Appearance Urine pH Ur Specific [place] Urine Protein Urine Glucose (UA) Urine Ketones Ur Blood (Man) Urine Nitrate Urine Bilirubin Urine Urobilinogen Add Ur Microanalysis Leukocyte Esterase Rfl Urine RBC Urine WBC Ur Squamous Epith Cells Urine Bacteria Urine Casts Hyaline Casts Hepatitis A IgM Ab Hep Bs Antigen Hep B Core IgM Ab Hepatitis C Ab Screen Influenza A (RT-PCR) Influenza B (RT-PCR) RSV (RT-PCR) SARS-CoV-2 RNA (RT-PCR) Impressions Chest X-Ray 09/20/24 20:34 IMPRESSION: No focal infiltrate or effusion. Abdomen/Pelvis CT 09/20/24 23:03 IMPRESSION: Fatty infiltration of a markedly enlarged liver. Cholelithiasis. Findings caudal to the tail of the pancreas for which an early pseudocyst formation versus carcinoid is suspected. Nonobstructing stones within the bilateral kidneys. All imaging and EKGs personally reviewed and interpreted. And unless stated otherwise agree with radiologic and cardiology interpretation. Test Date: 2024-09-21 02:19:32 Measurements Intervals [place] Rate: 96 P: 10 WV: 159 QRS: -36 QRSD: 121 T: -8 QT: 361 QTc: 457 Interpretive Statements SINUS RHYTHM LEFT AXIS DEVIATION [QRS AXIS < -30] MODERATE INTRAVENTRICULAR CONDUCTION DELAY [110+ ms QRS DURATION] Assessment and Plan Assessment and plan (1) Non-ST elevation [place] (NSTEMI): Code(s): I21.4 - Non-ST elevation (NSTEMI) myocardial infarction Status: Acute (2) Transaminitis: Code(s): R74.01 - Elevation of levels of liver transaminase levels Status: Acute (3) Hepatic steatosis: Onset Date: 09/2024 Code(s): K76.0 - Fatty (change of) liver, not elsewhere classified Status: Acute (4) Type 2 diabetes mellitus with hyperglycemia: Qualifiers: Diabetes mellitus terminal make up operator insulin use: without chcf use Qualified Code(s): E11.65 - Type 2 diabetes mellitus with hyperglycemia Code(s): E11.65 - Type 2 diabetes mellitus with hyperglycemia Status: Acute (5) SIRS (systemic inflammatory response syndrome): Code(s): R65.10 - Systemic inflammatory response syndrome (SIRS) of non-infectious origin without acute organ dysfunction Status: Acute (6) Hyperbilirubinemia: Code(s): E80.6 - Other disorders of bilirubin metabolism Status: Acute (7) Muscle wasting and atrophy, not elsewhere classified, unspecified hand: Code(s): M62.549 - Muscle wasting and atrophy, not elsewhere classified, unspecified hand Status: Acute (8) Muscle wasting and atrophy, not elsewhere classified, unspecified thigh: Code(s): M62.559 - Muscle wasting and atrophy, not elsewhere classified, unspecified thigh Status: Acute (9) Bilateral kidney stones: Code(s): N20.0 - Calculus of kidney Status: Acute (10) Cholelithiasis: Qualifiers: Cholelithiasis location: gallbladder Code(s): K80.20 - Calculus of gallbladder without cholecystitis without obstruction Status: Acute (11) Hepatomegaly: Code(s): R16.0 - Hepatomegaly, not elsewhere classified Status: Acute Plan Patient presented with generalized weakness and constellation of nonspecific findings. He met SIRS criteria with low-grade temperature, tachycardia and lactic acidosis of 4. Unclear source of infection but patient does have significant transaminitis and hyperbilirubinemia and is on chronic immunosuppressive therapy for psoriatic arthritis. Will obtain repeat lactic acid level, blood cultures and will check COVID flu and RSV PCR. Will check acute hepatitis panel. Depending on repeat lab results may benefit from further abdominal and/or long ended imaging. The patient received 2 L IV fluid bolus in the ER. Will given additional 1 L fluid bolus and start patient on maintenance IV fluids. Patient also is noted to be hyperglycemic with no known history of diabetes. I ordered hemoglobin A1c at the time of admission which was elevated to 10.6. This is a new diagnosis of diabetes for the patient. Patient did have a mild elevated and gap and low serum bicarb which is likely multifactorial due to lactic acidosis and hospital component of starvation. DKA is less likely however some component of mild DKA may have been present but the patient's anion gap and serum bicarb improved with IV fluid hydration and did not require IV insulin administration. Patient's glucoses did improve after IV fluid hydration. Will add sliding scale insulin with Accu-Cheks a.c. HS and will change patient's diet to consistent carbohydrate. Tachycardia resolved after IV fluid administration suggesting component of dehydration. The patient did have elevated troponin without complaint of chest pain and without EKG changes suggestive of acute ischemia. I suspect findings are more likely due to demand ischemia but pattern does fit fit with non STEMI. Patient was started on heparin drip. Will consult Cardiology. Will obtain echocardiogram to further evaluate cardiac structure and function. Patient did have elevated D-dimer and tachycardia. CTA was initially not done in the ER because the patient had received contrast for his CT of abdomen and pelvis. If creatinine is stable in a.m. will obtain CTA to rule out pulmonary embolism. Patient has been started on heparin drip per protocol. The patient has generalized weakness with noted muscle wasting of intrinsic muscles of the hand with decreased metal solderer strength bilaterally and difficulty with extension of the hands. He has marked wasting of the muscles of bilateral thighs as well. There is a prior mention in the medical record of mild clonus. The patient does not had mild monocytosis time of my evaluation but I am concerned for underlying neurologic process. The patient has a flat affect and seems almost encephalopathic at the time of my evaluation. Ammonia level was obtained to rule out possible hepatic encephalopathy given patient's elevated transaminases. Ammonia level was less than 9. Patient could be encephalopathic due to underlying acute illness or may have underlying neurologic or psychiatric process. Patient does have crowded posterior oropharynx and morbid obesity and would benefit from outpatient sleep study. Will check [facility] during hospitalization. Patient had bilateral nonobstructing kidney stones no evidence of acute kidney injury. No need for further evaluation. MEDICAL DECISION MAKING NARRATIVE -Spoke with the ED provider in detail regarding patient's evaluation, workup and management -Patient seen and examined at bedside -Collaborated with patient's nurse at the bedside in detail and addressed all concerns -Labs, electrolytes, radiology, investigations and test results reviewed -ED/Consult/Nursing/Ancilliary notes on the chart reviewed and appreciated -Spoke with patient/family at the bedside. The patient did not verbalize understanding or ask any questions. Quality VTE Prophylaxis VTE prophylaxis: pharmacologic ordered (Heparin drip per protocol) Hospitalist MIPS Advance Care Plan I have confirmed that the patient's Advanced Care Plan is present, code status is documented, or surrogate decision maker is listed in patient medical record.: Yes Medication Reconciliation I have utilized all available resources to obtain, update and review the patients current medications (includes all prescriptions, OTC, herbals, cannabis, and nutritional supplements).: Yes
--- NOTE | 2024-09-21 04:08 | ADMGEN ---
This patient, Alexandro Rizo, was admitted to IMU Room 202-01. Patient/family oriented to hospital policies and general routines including ID bracelet, bed and alarms, visiting hours, pain management, procedures, bathroom and other care routines, personal items, smoking policy, room service/diet, and visiting hours. Information on how to activate the Rapid Response Team has been discussed. Patient/Family are encouraged to report perceived risks to care and to ask questions if they do not understand what they are told or what they should do.
[2024-09-21 04:19] LABS: Hematocrit 41.0 % (42.0-52.0); Hemoglobin 13.8 g/dL (14.0-18.0); Immature Granulocyte Percent A 0.5 % (0-0.5); Immature Platelet Fraction Pct 1.8 % (0.9-11.2); Lymphocytes Absolute Auto 0.96 K/mm3 (0.9-3.2); Mean Corpuscular HGB Conc 33.7 g/dl (32-36); Mean Corpuscular Hemoglobin 30.4 pg (26-34); Mean Corpuscular Volume 90.3 fl (80-100); Nucleated Red Blood Cells Absolute Auto 0.000 K/mm3 (0.0-0.012); Nucleated Red Blood Cells Perc 0.0 % (0.0-0.2); Platelet Count Result 110 k/mm3 (150-375); Red Blood Count 4.54 M/mm3 (4.6-6.20); White Blood Count 5.7 K/mm3 (4.5-10.0)
[2024-09-21 04:38] LABS: Ammonia < 9 umol/L (9-30)
[2024-09-21 05:06] LABS: Thyroid Stimulating Hormone Reflex 1.390 uIU/mL (0.465-4.68)
[2024-09-21 05:10] LABS: Hepatitis B Surface Antigen Negative (Negative)
[2024-09-21 05:15] LABS: HAV RESULT Negative (Negative); Hepatitis B Core IgM Result Negative (Negative)
[2024-09-21 05:22] LABS: Beta-Hydroxybutyrate/Acetoace. 0.32 mmol/L (0.02-0.27)
[2024-09-21 05:30] LABS: Alanine Aminotransferase 284 U/L (6-50); Albumin Level 3.6 g/dL (3.5-5.1); Alkaline Phosphatase 46 U/L (38-126); Anion Gap 9 mmol/L (4-12); Aspartate Amino Transferase 247 U/L (17-59); Bilirubin,Total 2.4 mg/dL (0.2-1.3); Blood Urea Nitrogen 10 mg/dL (9-20); Calcium 8.2 mg/dL (8.4-10.2); Carbon Dioxide 22 mmol/L (22-30); Chloride 105 mmol/L (98-107); Estimated CRCL calculation 89 ml/min; Estimated Glomerular Filt Rate > 60; Glucose 259 mg/dL (65-110); Potassium 3.9 mmol/L (3.4-5.0); Sodium 136 mmol/L (137-145); Total Protein 6.7 g/dL (6.3-8.2)
[2024-09-21 06:07] LABS: Influenza A QL RT-PCR Negative (Negative); Influenza B QL RT-PCR Negative (Negative); RSV RNA, RT-PCR Negative (Negative); SARS-CoV-2 RNA PCR Negative (Negative)
[2024-09-21] MEDS: MAGNESIUM SULF 2 GM/WATER 50ML 2 GM/50 ML BAG IVPB (06:26)
[2024-09-21 07:39] LABS: Partial Thromboplastin Time 39.5 Seconds (22.3-36.8)
[2024-09-21] MEDS: INSULIN ASPART (*BKC) 100 UNITS/ML SUB-Q ×4 (08:05→20:41)
--- NOTE | 2024-09-21 09:21 | PM.IMPN ---
Progress Note: A&P Assessment and Plan (1) Non-ST elevation NC (NSTEMI): Code(s): I21.4 - Non-ST elevation (NSTEMI) myocardial infarction Status: Acute Plan Patient is a 69-year-old male who presents emergency department this evening via EMS complaining of generalized weakness. NSTEMI Upon arrival to ED, patient was found have elevated troponin that is trending up, EKG shows sinus rhythm, no specific ST or T-wave changes, Pending echocardiogram Telemetry monitoring Aspirin 325 mg once and 81 mg daily p.o. Consult possum trapper for evaluation treatment Uncontrolled diabetes, New onset diabetes glucose 342 on arrival Hemoglobin A1c 10.6 Patient is on sliding scale Start Lantus 20 units q.h.s. lispro 6 units a.c. Transaminitis, gallstone Total bilirubin 2.4, AST 487, ALT 402, CPK 319 CT abdomen showed gallstone, fatty liver Pending MRCP Consult GI for evaluation treatment SIRS criteria low-grade temperature, tachycardia and lactic acidosis of 4. significant transaminitis and hyperbilirubinemia, chronic immunosuppressive therapy for psoriatic arthritis. lactic acid level, blood cultures negative of COVID flu and RSV PCR. Subjective Date/time seen: 09/21/24 09:21 Interval history: I saw exam patient, patient feel tired today, denies chest pain, palpitation, shortness breath,,abdomen pain nausea vomiting diarrhea Patient also denies history of diabetes Exam Narrative: GENERAL: Pleasant, in no acute distress. Well-nourished. - EYES: EOMI. Anicteric. - HENT: Moist mucous membranes. - LUNGS: Clear to auscultation bilaterally, no wheezing, rhonchi, or rales. - CARDIOVASCULAR: Regular rate and rhythm. No murmur. No JVD. - ABDOMEN: Soft, non-tender and non-distended. No palpable masses. - EXTREMITIES: No edema. Peripheral pulses 2+. Non-tender. - NEUROLOGIC: No focal neurological deficits. CN II-XII grossly intact. - PSYCHIATRIC: Awake, Alert and oriented x 3. Appropriate mood and affect. - SKIN: No rashes or lesions. Warm. - LYMPH: No cervical lymphadenopathy. Objective Data Vital Signs Vital Signs: Vital Signs - 24 hr 09/20/24 19:59 09/20/24 19:59 09/20/24 23:19 Temperature 98.5 F Pulse Rate 121 H 102 H Respiratory Rate 14 18 Blood Pressure 137/61 165/74 H Pulse Oximetry 95 95 95 Oxygen Delivery Room Air Room Air Fraction of Inspired Oxygen 09/20/24 23:30 09/20/24 23:45 09/21/24 02:15 Temperature Pulse Rate 104 H 97 Respiratory Rate 17 Blood Pressure 116/70 Pulse Oximetry 94 94 Oxygen Delivery Room Air Fraction of Inspired Oxygen 09/21/24 03:26 09/21/24 03:45 09/21/24 04:00 Temperature 99.9 F H Pulse Rate 101 H 95 95 Respiratory Rate 18 16 16 Blood Pressure 116/70 195/58 H Pulse Oximetry 94 94 94 Oxygen Delivery Room Air Fraction of Inspired Oxygen 09/21/24 04:00 09/21/24 04:41 09/21/24 06:00 Temperature Pulse Rate 96 98 86 Respiratory Rate Blood Pressure Pulse Oximetry Oxygen Delivery Fraction of Inspired Oxygen 09/21/24 07:59 09/21/24 08:09 Temperature 98.8 F Pulse Rate 83 Respiratory Rate 18 Blood Pressure 142/51 H Pulse Oximetry 94 94 Oxygen Delivery Room Air Fraction of Inspired Oxygen 21 Intake/Output Intake/Output: Intake & Output 09/18/24 09/19/24 09/20/24 09/21/24 23:59 23:59 23:59 23:59 Intake Total 1000 1185.8 Output Total 300 200 Balance 700 985.8 Meds/Results Medications: Active Medications Generic Name Dose Route Start Last Admin Trade Name Freq PRN Reason Stop Dose Admin Dextrose 12.5 gm 09/21/24 00:14 Dextrose 50% 25 Gm/50 Ml Syringe IV PUSH PRN PRN Hypoglycemia Protocol Glucagon 1 mg 09/21/24 00:14 Glucagon For Inj 1 Mg Vial IM PRN PRN Hypoglycemia Protocol Glucose 15 gm 09/21/24 00:14 Glucose Oral Gel 15 Gm Of Glucse In 37.5 Gm Tube PO PRN PRN Hypoglycemia Protocol Heparin Sodium (Porcine) 4,000 units 09/21/24 00:34 09/21/24 08:07 Heparin Sodium 5,000 Units/Ml Vial IV PUSH 4,000 units PRN PRN Administration aPTT less than 55 seconds Heparin Sodium (Porcine) 3,500 units 09/21/24 00:34 Heparin Sodium 5,000 Units/Ml Vial IV PUSH PRN PRN aPTT 55 - 70 seconds Sodium Chloride 1,000 mls @ 100 mls/hr 09/21/24 00:07 09/21/24 00:32 Normal Saline Iv IV CONT 09/21/24 10:06 100 mls/hr .Q10H STA Administration Dextrose 1,000 mls @ 100 mls/hr 09/21/24 00:14 Dextrose 5% 1,000 Ml IVPB PRN PRN Hypoglycemia Protocol Heparin Sodium/Dextrose 25,000 units in 250 mls @ 14 mls/hr 09/21/24 00:35 09/21/24 08:10 Heparin Sodium/D5w 100 Units/Ml IV CONT 1,400 units/hr .[id number] ELIJAH 14 mls/hr Titration Protocol 1,400 UNITS/HR Insulin Aspart 4 - 8 units 09/21/24 08:00 09/21/24 08:05 Insulin Aspart (*Bkc) 100 Units/Ml SUB-Q 5 units TIDWM ELIJAH Administration Protocol Insulin Aspart 2 - 4 units 09/21/24 21:00 Insulin Aspart (*Bkc) 100 Units/Ml SUB-Q HS ELIJAH Protocol Radiology Results: ITS Impressions Chest X-Ray 09/20/24 20:34 IMPRESSION: No focal infiltrate or effusion. Abdomen/Pelvis CT 09/20/24 23:03 IMPRESSION: Fatty infiltration of a markedly enlarged liver. Cholelithiasis. Findings caudal to the tail of the pancreas for which an early pseudocyst formation versus carcinoid is suspected. Nonobstructing stones within the bilateral kidneys. Labs Labs: Laboratory Results - last 24 hr 09/20/24 09/20/24 09/20/24 20:04 20:04 22:06 WBC 7.9 RBC 5.35 Hgb 16.1 Hct 47.3 MCV 88.4 MCH 30.1 MCHC 34.0 RDW 12.9 Plt Count 165 MPV 9.3 Immature Gran % (Auto) 0.5 Neut % (Auto) 82.7 H Lymph % (Auto) 9.5 L [place] % (Auto) 6.7 Eos % (Auto) 0.1 Baso % (Auto) 0.5 Lymph # (Auto) 0.75 L [place] # (Auto) 0.5 Eos # (Auto) 0.0 Baso # (Auto) 0.0 Abs Immat Gran (auto) 0.04 H Absolute Neuts (auto) 6.6 Absolute Nucleated RBC 0.000 Nucleated RBC % 0.0 % Immature Plt Fraction PT 13.6 INR 1.0 APTT 22.4 D-Dimer 1.05 H Sodium 135 L Potassium 4.1 Chloride 100 Carbon Dioxide 19 L Anion Gap 16 H BUN 13 Creatinine 1.23 Estim Creat Clear Calc 66 Estimated GFR 59 Glucose 342 H POC Capillary Glucose Hemoglobin A1c Lactic Acid Calcium 9.7 Magnesium 1.6 Cancelled Total Bilirubin 2.0 H AST 487 H ALT 402 H Alkaline Phosphatase 63 Ammonia Total Creatine Kinase Troponin I 0.012 Total Protein 8.2 Albumin 4.4 Lipase 45 Beta-Hydroxybutyrate/Acetoacetate TSH (Reflex) Urine Color Dark yellow Urine Appearance Cloudy H Urine pH 5.0 Ur Specific [place] 1.031 Urine Protein 2+ H Urine Glucose (UA) 3+ H Urine Ketones 1+ H Ur Blood (Man) 3+ H Urine Nitrate Negative Urine Bilirubin 1+ H Urine Urobilinogen 1.0 Add Ur Microanalysis Reviewed Leukocyte Esterase Rfl Negative Urine RBC 21-50 H Urine WBC 0-5 Ur Squamous Epith Cells Occasional Urine Bacteria None seen Urine Casts 11-20 Hyaline Casts Present Hepatitis A IgM Ab Hep Bs Antigen Hep B Core IgM Ab Hepatitis C Ab Screen Influenza A (RT-PCR) Influenza B (RT-PCR) RSV (RT-PCR) SARS-CoV-2 RNA (RT-PCR) 09/20/24 09/21/24 09/21/24 23:12 00:44 02:15 WBC 6.2 RBC 5.02 Hgb 15.2 Hct 44.7 MCV 89.0 MCH 30.3 MCHC 34.0 RDW 13.0 Plt Count 137 L MPV 9.5 Immature Gran % (Auto) 0.8 H Neut % (Auto) 77.9 H Lymph % (Auto) 15.2 L [place] % (Auto) 5.3 Eos % (Auto) 0.2 Baso % (Auto) 0.6 Lymph # (Auto) 0.94 [place] # (Auto) 0.3 Eos # (Auto) 0.0 Baso # (Auto) 0.0 Abs Immat Gran (auto) 0.05 H Absolute Neuts (auto) 4.8 Absolute Nucleated RBC 0.000 Nucleated RBC % 0.0 % Immature Plt Fraction 2.3 PT 14.0 INR 1.1 APTT 27.0 D-Dimer Sodium Potassium Chloride Carbon Dioxide Anion Gap BUN Creatinine Estim Creat Clear Calc Estimated GFR Glucose POC Capillary Glucose 300 H Hemoglobin A1c 10.6 H Lactic Acid 4.0 H Calcium Magnesium Total Bilirubin AST ALT Alkaline Phosphatase Ammonia Total Creatine Kinase 319 H Troponin I 0.195 H* D Total Protein Albumin Lipase Beta-Hydroxybutyrate/Acetoacetate TSH (Reflex) Urine Color Urine Appearance Urine pH Ur Specific [place] Urine Protein Urine Glucose (UA) Urine Ketones Ur Blood (Man) Urine Nitrate Urine Bilirubin Urine Urobilinogen Add Ur Microanalysis Leukocyte Esterase Rfl Urine RBC Urine WBC Ur Squamous Epith Cells Urine Bacteria Urine Casts Hyaline Casts Hepatitis A IgM Ab Hep Bs Antigen Hep B Core IgM Ab Hepatitis C Ab Screen Influenza A (RT-PCR) Influenza B (RT-PCR) RSV (RT-PCR) SARS-CoV-2 RNA (RT-PCR) 09/21/24 09/21/24 09/21/24 02:20 04:01 04:10 WBC 5.7 RBC 4.54 L Hgb 13.8 L Hct 41.0 L MCV 90.3 MCH 30.4 MCHC 33.7 RDW 13.1 Plt Count 110 L MPV 9.3 Immature Gran % (Auto) 0.5 Neut % (Auto) 74.8 H Lymph % (Auto) 16.8 L [place] % (Auto) 7.2 Eos % (Auto) 0.2 Baso % (Auto) 0.5 Lymph # (Auto) 0.96 [place] # (Auto) 0.4 Eos # (Auto) 0.0 Baso # (Auto) 0.0 Abs Immat Gran (auto) 0.03 Absolute Neuts (auto) 4.3 Absolute Nucleated RBC 0.000 Nucleated RBC % 0.0 % Immature Plt Fraction 1.8 PT INR APTT D-Dimer Sodium 136 L Potassium 3.9 Chloride 105 Carbon Dioxide 22 Anion Gap 9 BUN 10 Creatinine 0.88 Estim Creat Clear Calc 89 Estimated GFR > 60 Glucose 259 H POC Capillary Glucose Hemoglobin A1c Lactic Acid Calcium 8.2 L Magnesium Total Bilirubin 2.4 H AST 247 H ALT 284 H Alkaline Phosphatase 46 Ammonia < 9 L Total Creatine Kinase Troponin I 0.490 H* D Total Protein 6.7 Albumin 3.6 Lipase Beta-Hydroxybutyrate/Acetoacetate 0.32 H TSH (Reflex) 1.390 Urine Color Urine Appearance Urine pH Ur Specific [place] Urine Protein Urine Glucose (UA) Urine Ketones Ur Blood (Man) Urine Nitrate Urine Bilirubin Urine Urobilinogen Add Ur Microanalysis Leukocyte Esterase Rfl Urine RBC Urine WBC Ur Squamous Epith Cells Urine Bacteria Urine Casts Hyaline Casts Hepatitis A IgM Ab Negative Hep Bs Antigen Negative Hep B Core IgM Ab Negative Hepatitis C Ab Screen Negative Influenza A (RT-PCR) Influenza B (RT-PCR) RSV (RT-PCR) SARS-CoV-2 RNA (RT-PCR) 09/21/24 09/21/24 09/21/24 04:58 07:16 07:17 WBC RBC Hgb Hct MCV MCH MCHC RDW Plt Count MPV Immature Gran % (Auto) Neut % (Auto) Lymph % (Auto) [place] % (Auto) Eos % (Auto) Baso % (Auto) Lymph # (Auto) [place] # (Auto) Eos # (Auto) Baso # (Auto) Abs Immat Gran (auto) Absolute Neuts (auto) Absolute Nucleated RBC Nucleated RBC % % Immature Plt Fraction PT INR APTT 39.5 H D-Dimer Sodium Potassium Chloride Carbon Dioxide Anion Gap BUN Creatinine Estim Creat Clear Calc Estimated GFR Glucose POC Capillary Glucose Hemoglobin A1c Lactic Acid 1.5 Calcium Magnesium Total Bilirubin AST ALT Alkaline Phosphatase Ammonia Total Creatine Kinase Troponin I Total Protein Albumin Lipase Beta-Hydroxybutyrate/Acetoacetate TSH (Reflex) Urine Color Urine Appearance Urine pH Ur Specific [place] Urine Protein Urine Glucose (UA) Urine Ketones Ur Blood (Man) Urine Nitrate Urine Bilirubin Urine Urobilinogen Add Ur Microanalysis Leukocyte Esterase Rfl Urine RBC Urine WBC Ur Squamous Epith Cells Urine Bacteria Urine Casts Hyaline Casts Hepatitis A IgM Ab Hep Bs Antigen Hep B Core IgM Ab Hepatitis C Ab Screen Influenza A (RT-PCR) Negative Influenza B (RT-PCR) Negative RSV (RT-PCR) Negative SARS-CoV-2 RNA (RT-PCR) Negative 09/21/24 07:34 WBC RBC Hgb Hct MCV MCH MCHC RDW Plt Count MPV Immature Gran % (Auto) Neut % (Auto) Lymph % (Auto) [place] % (Auto) Eos % (Auto) Baso % (Auto) Lymph # (Auto) [place] # (Auto) Eos # (Auto) Baso # (Auto) Abs Immat Gran (auto) Absolute Neuts (auto) Absolute Nucleated RBC Nucleated RBC % % Immature Plt Fraction PT INR APTT D-Dimer Sodium Potassium Chloride Carbon Dioxide Anion Gap BUN Creatinine Estim Creat Clear Calc Estimated GFR Glucose POC Capillary Glucose 286 H Hemoglobin A1c Lactic Acid Calcium Magnesium Total Bilirubin AST ALT Alkaline Phosphatase Ammonia Total Creatine Kinase Troponin I Total Protein Albumin Lipase Beta-Hydroxybutyrate/Acetoacetate TSH (Reflex) Urine Color Urine Appearance Urine pH Ur Specific [place] Urine Protein Urine Glucose (UA) Urine Ketones Ur Blood (Man) Urine Nitrate Urine Bilirubin Urine Urobilinogen Add Ur Microanalysis Leukocyte Esterase Rfl Urine RBC Urine WBC Ur Squamous Epith Cells Urine Bacteria Urine Casts Hyaline Casts Hepatitis A IgM Ab Hep Bs Antigen Hep B Core IgM Ab Hepatitis C Ab Screen Influenza A (RT-PCR) Influenza B (RT-PCR) RSV (RT-PCR) SARS-CoV-2 RNA (RT-PCR)
[2024-09-21] MEDS: INSULIN ASPART (*BKC) 100 UNITS/ML 6 UNITS SUB-Q ×2 (11:51→17:30)
--- NOTE | 2024-09-21 12:44 | P.CONCA_ITS ---
Assessment and Plan Assessment and plan (1) Non-ST elevation HI (NSTEMI): Code(s): I21.4 - Non-ST elevation (NSTEMI) myocardial infarction Status: Acute (2) Type 2 diabetes mellitus with hyperglycemia: Qualifiers: Diabetes mellitus mcc insulin use: without mcc use Q ualified Code(s): E11.65 - Type 2 diabetes mellitus with hyperglycemia Code(s): E11.65 - Type 2 diabetes mellitus with hyperglycemia Status: Acute (3) Hypertension: Code(s): I10 - Essential (primary) hypertension Status: Acute Plan -Elevated troponin and weakness in a patient with new diagnosis of type 2 diabetes mellitus-he received aspirin 325 mg x1, and was started on heparin drip -Generalized weakness and fatigue over the past few months -Type 2 diabetes mellitus with hemoglobin A1c of 10-new diagnosis -Hypertension--new diagnosis Plan: -The patient does not have chest pain but his Troponin is up trending. He has significant risk factors for CAD including obesity, inactivity, male sex, history of smoking, new diagnosis of diabetes. He has increasing weakness and fatigue over the past few months. Since diabetic patients can present without typical symptoms of chest pain and can have extensive CAD, recommend cardiac catheterization to further evaluate coronaries. Risks and benefits were discussed with the patient in detail and he wishes to proceed. Creatinine is normal. Keep NPO for catheterization in a.m. Will also discuss with patient's prior to proceeding with cardiac catheterization due to patient having some difficulty answering questions -Patient received aspirin 325 mg p.o. once. Continue aspirin 81 mg p.o. daily -Continue Heparin drip -Start atorvastatin 80 mg -Check FLP -TTE -Add metoprolol 12.5 mg p.o. b.i.d. -EKG p.r.n. 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 Patient is oriented to time, place, person and current events but is a poor historian. History is obtained both from patient as well as medical record. Patient reports being tired and weak. He states that he fell yesterday while walking from the bathroom due to his legs giving away. He denies any chest pain, neck/jaw/arm pain, shortness of breath, dizziness, lightheadedness, presyncope, syncope, recent weight gain, leg swelling, orthopnea, PND. He retired about a year ago and he has not been very active since then. 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 He mostly sits in the recliner. He smoked in the past but quit many years ago. No personal or family history of coronary artery disease. In the ER the patient was tachycardic and had a low-grade temperature of 99.9?. He was diagnosed with diabetes. Initial troponin negative but repeat was elevated. EKG showed sinus rhythm with nonspecific T-wave inversions in inferior leads. Cardiology is consulted for further recommendations. Workup: Troponin: 0.012, 0.195, 0.490 EKG: Sinus rhythm with rate of 96, left axis deviation, interventricular conduction delay, nonspecific T-wave inversion in inferior leads TTE: Not Chest x-ray: No no infiltrate or effusion CT abdomen/pelvis: IMPRESSION: Fatty infiltration of a markedly enlarged liver. Cholelithiasis. Findings caudal to the tail of the pancreas for which an early pseudocyst formation versus carcinoid is suspected. Nonobstructing stones within the bilateral kidneys. Review of Systems 2 Review of Systems: Complete review of systems was performed and pertinent positives are reported in HPI [facility] Past Medical History Medical History (Updated 09/21/24 @ 13:34 by Griselda Juarez MD) Obesity (BMI 30-39.9) Hx of squamous cell carcinoma Neck/Resected 2007 Surgical History Surgical History (Updated 09/21/24 @ 09:25 by Lisa Robison DO) Status post surgical removal of malignant neoplasm of skin (~2007) Family History Family History Father Muscular atrophy Mother Breast cancer Grandparent Breast cancer Social History Social History (Updated 09/21/24 @ 09:26 by Lisa Robison DO) Social History: Code status: Full code (per EMR) Surrogate decision maker: Smoking packs per day: 2 Smoking cigarettes per day: 40.0 Smoking status: Former smoker Tobacco type: cigarettes Alcohol intake: never Substance use: never Do You Feel Safe in your Home?: Yes Lack of Transportation: No Lack of Food: Never True Current Housing: I Have Housing Concerned About Future Housing: No Difficulty Paying Gas/Electric Bills: No Difficulty Paying for Meds: No Currently Unemployed: No Education: High School Diploma/GED Difficulty w/ Childcare or Family Care: No Additional living arrangements comments: Lives with . 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 Spiritual care concerns: No Meds Home Medications and Allergies Home Medications ?Medication ?Instructions ?Recorded ?Confirmed ?Type ustekinumab 90 mg/mL subcutaneous mg subcut 09/21/24 History syringe (Stelara) Allergies Allergy/AdvReac Type Severity Reaction Status Date / Time No Known Allergies Allergy Mild Verified 10/05/23 15:43 Vital Signs Vital Signs - 24 hr 09/20/24 19:59 09/20/24 19:59 09/20/24 23:19 Temperature 36.9 C Pulse Rate 121 H 102 H Respiratory Rate 14 18 Blood Pressure 137/61 165/74 H Pulse Oximetry 95 95 95 Oxygen Delivery Room Air Room Air Fraction of Inspired Oxygen 09/20/24 23:30 09/20/24 23:45 09/21/24 02:15 Temperature Pulse Rate 104 H 97 Respiratory Rate 17 Blood Pressure 116/70 Pulse Oximetry 94 94 Oxygen Delivery Room Air Fraction of Inspired Oxygen 09/21/24 03:26 09/21/24 03:45 09/21/24 04:00 Temperature 37.7 C H Pulse Rate 101 H 95 95 Respiratory Rate 18 16 16 Blood Pressure 116/70 195/58 H Pulse Oximetry 94 94 94 Oxygen Delivery Room Air Fraction of Inspired Oxygen 09/21/24 04:00 09/21/24 04:41 09/21/24 06:00 Temperature Pulse Rate 96 98 86 Respiratory Rate Blood Pressure Pulse Oximetry Oxygen Delivery Fraction of Inspired Oxygen 09/21/24 07:59 09/21/24 08:09 09/21/24 08:35 Temperature 37.1 C Pulse Rate 83 93 Respiratory Rate 18 Blood Pressure 142/51 H Pulse Oximetry 94 94 Oxygen Delivery Room Air Fraction of Inspired Oxygen 09/21/24 11:55 Temperature 36.9 C Pulse Rate 82 Respiratory Rate 22 H Blood Pressure 140/50 L Pulse Oximetry 94 Oxygen Delivery Fraction of Inspired Oxygen Exam 2 Narrative: General: Alert oriented x3, no acute distress Neck: Supple, no JVD Chest: Bilaterally clear to auscultation, no rales or rhonchi Cardiac: S1, S2 +, regular rate, regular rhythm, no murmurs or rubs Extremities: No pedal edema, no skin rash Neurologic: Alert and oriented x3, no focal neurological deficits Results Labs and Meds 09/21/24 04:10 09/21/24 04:10 Lab results: Cardiac Enzymes 09/20/24 09/20/24 09/21/24 Range/Units 20:04 23:12 02:20 AST 487 H (17-59) U/L Troponin I 0.012 0.195 H* D 0.490 H* D (0.000-0.034) ng/mL 09/21/24 Range/Units 04:10 AST 247 H (17-59) U/L Troponin I (0.000-0.034) ng/mL Coagulation 09/20/24 09/21/24 09/21/24 Range/Units 20:04 00:44 07:16 PT 13.6 14.0 (11.1-14.7) Seconds APTT 22.4 27.0 39.5 H (22.3-36.8) Seconds CBC 09/20/24 09/21/24 09/21/24 Range/Units 20:04 00:44 04:10 WBC 7.9 6.2 5.7 (4.5-10.0) K/mm3 RBC 5.35 5.02 4.54 L (4.6-6.20) M/mm3 Hgb 16.1 15.2 13.8 L (14.0-18.0) g/dL Hct 47.3 44.7 41.0 L (42.0-52.0) % Plt Count 165 137 L 110 L (150-375) k/mm3 Lymph # (Auto) 0.75 L 0.94 0.96 (0.9-3.2) K/mm3 [place] # (Auto) 0.5 0.3 0.4 (0.1-0.6) K/mm3 Eos # (Auto) 0.0 0.0 0.0 (0-0.3) K/mm3 Baso # (Auto) 0.0 0.0 0.0 (0.0-0.1) K/mm3 Comprehensive Metabolic Panel 09/20/24 09/21/24 Range/Units 20:04 04:10 Sodium 135 L 136 L (137-145) mmol/L Potassium 4.1 3.9 (3.4-5.0) mmol/L Chloride 100 105 (98-107) mmol/L Carbon Dioxide 19 L 22 (22-30) mmol/L BUN 13 10 (9-20) mg/dL Creatinine 1.23 0.88 (0.7-1.3) mg/dL Glucose 342 H 259 H (65-110) mg/dL Calcium 9.7 8.2 L (8.4-10.2) mg/dL AST 487 H 247 H (17-59) U/L ALT 402 H 284 H (6-50) U/L Alkaline Phosphatase 63 46 (38-126) U/L Total Protein 8.2 6.7 (6.3-8.2) g/dL Albumin 4.4 3.6 (3.5-5.1) g/dL Intake and Output 09/20/24 09/21/24 09/21/24 23:59 07:59 15:59 Intake Total 1000 1000 1135.8 Output Total 300 200 Balance 175 712 2094.8 Intake: IV 1000 1000 1015.8 Heparin Sod/D5w 100 Units/ml 25 65.8 ,000 units In 250 ml @ 1,000 UNITS/HR 10 mls/hr IV CONT . Q24H ELIJAH Rx#:[id number] Sodium Chloride 0.9% IV 1,000 1000 1000 900 ml @ 100 mls/hr IV CONT .Q10H STA Rx#:[id number] Magnesium Sulf 2 gm/Water 50Ml 50 2 gm In 50 ml @ 25 mls/hr IVPB ONCE ONE Rx#:[id number] Oral 0 120 Output: Urine 300 200 Other: # Incontinent Voids 1 Patient Weight 09/21/24 23:59 Weight 118 kg
[2024-09-21] MEDS: ATORVASTATIN 40 MG TABLET 80 MG PO (14:19)
[2024-09-21 14:37] LABS: Partial Thromboplastin Time 42.3 Seconds (22.3-36.8)
--- NOTE | 2024-09-21 16:20 | PCCDE ---
Discussed patient status with Tere Calloway RN, and Karmen Simon RD. Patient having cardiac cath done tomorrow. Tere was advised to provide patient with Diabetes Management book from [employer] and enter an Outpatient Diabetes Management Referral. With this being a new diagnosis, the patient could greatly benefit from outpatient education.
[2024-09-21 17:45] LABS: Ferritin 815.00 ng/mL (11.1-264)
[2024-09-21] MEDS: HEPARIN SOD/D5W 100 UNITS/ML 25,000 UNITS/250 ML BAG 18 UNITS IV CONT (20:34)
[2024-09-21] MEDS: INSULIN GLARGINE (*BKC) 100 UNITS/ML 20 UNITS SUB-Q (20:40)
[2024-09-21 21:42] LABS: Partial Thromboplastin Time 67.1 Seconds (22.3-36.8)
[2024-09-22] VITALS (32 sets, daily range): BP systolic 127–156; BP diastolic 49–92; PULSE 72–97; RESP 16–24; TEMP 36.9–38; O2SAT 92–97
--- NOTE | 2024-09-22 03:55 | PCRTNOTE ---
Pt unable to follow instructions keep removing apnea link.
[2024-09-22 04:50] LABS: Hematocrit 39.2 % (42.0-52.0); Hemoglobin 13.0 g/dL (14.0-18.0); Immature Granulocyte Percent A 0.6 % (0-0.5); Immature Platelet Fraction Pct 2.3 % (0.9-11.2); Lymphocytes Absolute Auto 1.17 K/mm3 (0.9-3.2); Mean Corpuscular HGB Conc 33.2 g/dl (32-36); Mean Corpuscular Hemoglobin 30.5 pg (26-34); Mean Corpuscular Volume 92.0 fl (80-100); Nucleated Red Blood Cells Absolute Auto 0.000 K/mm3 (0.0-0.012); Nucleated Red Blood Cells Perc 0.0 % (0.0-0.2); Platelet Count Result 101 k/mm3 (150-375); Red Blood Count 4.26 M/mm3 (4.6-6.20); White Blood Count 5.2 K/mm3 (4.5-10.0)
[2024-09-22 05:20] LABS: Partial Thromboplastin Time 98.9 Seconds (22.3-36.8)
--- NOTE | 2024-09-22 07:48 | P.PNCA_ITS ---
Progress Note: A&P Assessment and Plan (1) Non-ST elevation IA (NSTEMI): Code(s): I21.4 - Non-ST elevation (NSTEMI) myocardial infarction Status: Acute (2) Hypertension: Code(s): I10 - Essential (primary) hypertension Status: Acute (3) Type 2 diabetes mellitus with hyperglycemia: Qualifiers: Diabetes mellitus tank terminal gauger insulin use: without senior living use Qualified Code(s): E11.65 - Type 2 diabetes mellitus with hyperglycemia Code(s): E11.65 - Type 2 diabetes mellitus with hyperglycemia Status: Acute Plan -Elevated troponin and weakness in a patient with new diagnosis of type 2 diabetes mellitus-he received aspirin 325 mg x1, and was started on heparin drip -Generalized weakness and fatigue over the past few months -Type 2 diabetes mellitus with hemoglobin A1c of 10-new diagnosis -Hypertension-new diagnosis Plan: -Cardiac catheterization today. Discussed risks and benefits of procedure in detail with the patient and his and willing to proceed. Keep NPO -Continue Heparin drip -Continue aspirin 80 mg daily, atorvastatin 80 mg daily, metoprolol 12 5 mg b.i.d. -TTE showed normal LV size and function, mild mitral valve prolapse without significant mitral regurgitation Subjective Date/time seen: 09/22/24 07:48 Interval history: Reason for encounter: Weakness and elevated troponin Relevant history: No chest pain, palpitations, shortness of breath. Review of Systems Cardiovascular: Comments: As per HPI Respiratory: Comments: As per HPI Exam Narrative: General: Alert oriented x3, no acute distress Neck: Supple, no JVD Chest: Bilaterally clear to auscultation, no rales or rhonchi Cardiac: S1, S2 +, regular rate, regular rhythm, no murmurs or rubs Extremities: No pedal edema, no skin rash Neurologic: Alert and oriented x3, no focal neurological deficits Objective Data Vital Signs Vital Signs: Vital Signs - 24 hr 09/21/24 07:59 09/21/24 08:09 09/21/24 08:35 Temperature 37.1 C Pulse Rate 83 93 Respiratory Rate 18 Blood Pressure 142/51 H Pulse Oximetry 94 94 Oxygen Delivery Room Air Fraction of Inspired Oxygen 21 09/21/24 11:55 09/21/24 12:00 09/21/24 12:00 Temperature 36.9 C Pulse Rate 82 82 90 Respiratory Rate 22 H 22 H Blood Pressure 140/50 L Pulse Oximetry 94 94 Oxygen Delivery Room Air Fraction of Inspired Oxygen 09/21/24 14:00 09/21/24 16:35 09/21/24 16:45 Temperature 36.8 C Pulse Rate 84 86 85 Respiratory Rate 22 H Blood Pressure 146/66 H Pulse Oximetry 93 94 Oxygen Delivery Room Air Fraction of Inspired Oxygen 09/21/24 16:45 09/21/24 18:00 09/21/24 19:36 Temperature 37.2 C Pulse Rate 93 87 93 Respiratory Rate 22 H Blood Pressure 142/59 H Pulse Oximetry 94 Oxygen Delivery Fraction of Inspired Oxygen 09/21/24 19:47 09/21/24 20:00 09/21/24 22:02 Temperature Pulse Rate 86 85 Respiratory Rate 20 Blood Pressure Pulse Oximetry 94 Oxygen Delivery Room Air Room Air Fraction of Inspired Oxygen 21 09/21/24 22:21 09/21/24 23:58 09/22/24 00:00 Temperature 37.3 C Pulse Rate 99 88 83 Respiratory Rate 22 H Blood Pressure 186/53 H Pulse Oximetry 96 Oxygen Delivery Room Air Fraction of Inspired Oxygen 09/22/24 00:00 09/22/24 02:00 09/22/24 03:37 Temperature 38.0 C H Pulse Rate 91 83 92 Respiratory Rate 22 H Blood Pressure 154/55 H Pulse Oximetry 93 Oxygen Delivery Fraction of Inspired Oxygen 09/22/24 03:59 09/22/24 04:00 09/22/24 06:00 Temperature Pulse Rate 84 84 80 Respiratory Rate Blood Pressure Pulse Oximetry Oxygen Delivery Room Air Fraction of Inspired Oxygen Intake/Output Intake/Output: Intake & Output 09/19/24 09/20/24 09/21/24 09/22/24 23:59 23:59 23:59 23:59 Intake Total 1000 3080.9 664.3 Output Total 300 650 800 Balance 700 2430.9 -135.7 Meds/Results Medications: Active Medications Generic Name Dose Route Start Last Admin Trade Name Freq PRN Reason Stop Dose Admin Atorvastatin Calcium 80 mg 09/21/24 13:30 09/21/24 14:19 Atorvastatin 40 Mg Tablet PO 80 mg DAILY ELIJAH Administration Dextrose 12.5 gm 09/21/24 00:14 Dextrose 50% 25 Gm/50 Ml Syringe IV PUSH PRN PRN Hypoglycemia Protocol Glucagon 1 mg 09/21/24 00:14 Glucagon For Inj 1 Mg Vial IM PRN PRN Hypoglycemia Protocol Glucose 15 gm 09/21/24 00:14 Glucose Oral Gel 15 Gm Of Glucse In 37.5 Gm Tube PO PRN PRN Hypoglycemia Protocol Heparin Sodium (Porcine) 4,000 units 09/21/24 00:34 09/21/24 14:55 Heparin Sodium 5,000 Units/Ml Vial IV PUSH 4,000 units PRN PRN Administration aPTT less than 55 seconds Heparin Sodium (Porcine) 3,500 units 09/21/24 00:34 09/21/24 22:15 Heparin Sodium 5,000 Units/Ml Vial IV PUSH 3,500 units PRN PRN Administration aPTT 55 - 70 seconds Dextrose 1,000 mls @ 100 mls/hr 09/21/24 00:14 Dextrose 5% 1,000 Ml IVPB PRN PRN Hypoglycemia Protocol Heparin Sodium/Dextrose 25,000 units in 250 mls @ 20 mls/hr 09/21/24 00:35 09/22/24 05:24 Heparin Sodium/D5w 100 Units/Ml IV CONT 20 units/hr .[id number] ELIJAH 0.2 mls/hr Titration Protocol 2,000 UNITS/HR Insulin Aspart 4 - 8 units 09/21/24 08:00 09/21/24 17:30 Insulin Aspart (*Bkc) 100 Units/Ml SUB-Q 5 units TIDWM [facility] Administration Protocol Insulin Aspart 2 - 4 units 09/21/24 21:00 09/21/24 20:41 Insulin Aspart (*Bkc) 100 Units/Ml SUB-Q 2 units HS ELIJAH Administration Protocol Insulin Aspart 6 units 09/21/24 12:00 09/21/24 17:30 Insulin Aspart (*Bkc) 100 Units/Ml 0.05 units/kg (6 units) 6 units SUB-Q Administration TIDWM ELIJAH Insulin Glargine 20 units 09/21/24 21:00 09/21/24 20:40 Insulin Glargine (*Bkc) 100 Units/Ml SUB-Q 20 units HS ELIJAH Administration Perflutren Lipid Microsphere 0 ml 09/21/24 09:33 Perflutren Lipid Microspheres 1.5 Ml Vial Diluted To 10 Ml Total Volume IV PUSH 09/24/24 09:33 ONCE PRN adequate visualization Protocol Radiology Results: ITS Impressions Chest X-Ray 09/20/24 20:34 IMPRESSION: No focal infiltrate or effusion. Abdomen/Pelvis CT 09/20/24 23:03 IMPRESSION: Fatty infiltration of a markedly enlarged liver. Cholelithiasis. Findings caudal to the tail of the pancreas for which an early pseudocyst formation versus carcinoid is suspected. Nonobstructing stones within the bilateral kidneys. Chest CTA 09/21/24 15:12 IMPRESSION: 1. No pulmonary embolism. 2. No acute cardiopulmonary pathology. 3. Fat infiltration of the liver. 4. Cholelithiasis. 5. Left adrenal adenoma. No follow-up advised unless clinically warranted. Labs Labs: Laboratory Results - last 24 hr 09/21/24 09/21/24 09/21/24 04:10 07:34 11:26 WBC RBC Hgb Hct MCV MCH MCHC RDW Plt Count MPV Immature Gran % (Auto) Neut % (Auto) Lymph % (Auto) [place] % (Auto) Eos % (Auto) Baso % (Auto) Lymph # (Auto) [place] # (Auto) Eos # (Auto) Baso # (Auto) Abs Immat Gran (auto) Absolute Neuts (auto) Absolute Nucleated RBC Nucleated RBC % % Immature Plt Fraction APTT POC Capillary Glucose 286 H 269 H Ferritin 815.00 H 09/21/24 09/21/24 09/21/24 14:19 15:47 20:22 WBC RBC Hgb Hct MCV MCH MCHC RDW Plt Count MPV Immature Gran % (Auto) Neut % (Auto) Lymph % (Auto) [place] % (Auto) Eos % (Auto) Baso % (Auto) Lymph # (Auto) [place] # (Auto) Eos # (Auto) Baso # (Auto) Abs Immat Gran (auto) Absolute Neuts (auto) Absolute Nucleated RBC Nucleated RBC % % Immature Plt Fraction APTT 42.3 H POC Capillary Glucose 282 H 273 H Ferritin 09/21/24 09/22/24 21:20 04:39 WBC 5.2 RBC 4.26 L Hgb 13.0 L Hct 39.2 L MCV 92.0 MCH 30.5 MCHC 33.2 RDW 13.1 Plt Count 101 L MPV 9.9 Immature Gran % (Auto) 0.6 H Neut % (Auto) 66.8 Lymph % (Auto) 22.7 [place] % (Auto) 8.3 Eos % (Auto) 1.0 Baso % (Auto) 0.6 Lymph # (Auto) 1.17 [place] # (Auto) 0.4 Eos # (Auto) 0.1 Baso # (Auto) 0.0 Abs Immat Gran (auto) 0.03 Absolute Neuts (auto) 3.4 Absolute Nucleated RBC 0.000 Nucleated RBC % 0.0 % Immature Plt Fraction 2.3 APTT 67.1 H 98.9 H POC Capillary Glucose Ferritin
[2024-09-22] MEDS: METOPROLOL TARTRATE 12.5 MG TABLET PO ×2 (08:43→20:42)
[2024-09-22] MEDS: ASPIRIN 81 MG ENTERIC TABLET PO ×2 (08:43→18:13)
[2024-09-22] MEDS: INSULIN ASPART (*BKC) 100 UNITS/ML 6 UNITS SUB-Q ×2 (08:44→18:13)
[2024-09-22] MEDS: HEPARIN SOD/D5W 100 UNITS/ML 25,000 UNITS/250 ML BAG IV CONT ×2 (08:49→11:30)
--- NOTE | 2024-09-22 09:16 | PM.IMPN ---
Progress Note: A&P Assessment and Plan (1) Non-ST elevation IN (NSTEMI): Code(s): I21.4 - Non-ST elevation (NSTEMI) myocardial infarction Status: Acute Plan Patient is a 69-year-old male who presents emergency department this evening via EMS complaining of generalized weakness. NSTEMI Upon arrival to ED, patient was found have elevated troponin that is trending up, EKG shows sinus rhythm, no specific ST or T-wave changes, Pending echocardiogram Telemetry monitoring Aspirin 325 mg once and 81 mg daily p.o. Consult pneumatic tool operator for evaluation treatment Pending cardiac catheterization Uncontrolled diabetes, New onset diabetes glucose 342 on arrival Hemoglobin A1c 10.6 Patient is on sliding scale Start Lantus 20 units q.h.s. lispro 6 units a.c., increase lantus to 30 qhs 7/10 Transaminitis, gallstone Total bilirubin 2.4, AST 487, ALT 402, CPK 319 CT abdomen showed gallstone, fatty liver Pending MRCP Consult GI for evaluation treatment SIRS criteria low-grade temperature, tachycardia and lactic acidosis of 4. significant transaminitis and hyperbilirubinemia, chronic immunosuppressive therapy for psoriatic arthritis. lactic acid level, blood cultures negative of COVID flu and RSV PCR. Subjective Date/time seen: 09/22/24 09:16 Interval history: I saw and exam patient in presents of patient's . Patient denies chest pain, palpitation, shortness breath,,abdomen pain nausea vomiting diarrhea Afebrile, blood pressure stable Glucose is better controlled Exam Narrative: GENERAL: Pleasant, in no acute distress. Well-nourished. - EYES: EOMI. Anicteric. - HENT: Moist mucous membranes. - LUNGS: Clear to auscultation bilaterally, no wheezing, rhonchi, or rales. - CARDIOVASCULAR: Regular rate and rhythm. No murmur. No JVD. - ABDOMEN: Soft, non-tender and non-distended. No palpable masses. - EXTREMITIES: No edema. Peripheral pulses 2+. Non-tender. - NEUROLOGIC: No focal neurological deficits. CN II-XII grossly intact. - PSYCHIATRIC: Awake, Alert and oriented x 3. Appropriate mood and affect. - SKIN: No rashes or lesions. Warm. - LYMPH: No cervical lymphadenopathy. Objective Data Vital Signs Vital Signs: Vital Signs - 24 hr 09/21/24 11:55 09/21/24 12:00 09/21/24 12:00 Temperature 98.5 F Pulse Rate 82 82 90 Respiratory Rate 22 H 22 H Blood Pressure 140/50 L Pulse Oximetry 94 94 Oxygen Delivery Room Air Fraction of Inspired Oxygen 09/21/24 14:00 09/21/24 16:35 09/21/24 16:45 Temperature 98.3 F Pulse Rate 84 86 85 Respiratory Rate 22 H Blood Pressure 146/66 H Pulse Oximetry 93 94 Oxygen Delivery Room Air Fraction of Inspired Oxygen 09/21/24 16:45 09/21/24 18:00 09/21/24 19:36 Temperature 99.0 F Pulse Rate 93 87 93 Respiratory Rate 22 H Blood Pressure 142/59 H Pulse Oximetry 94 Oxygen Delivery Fraction of Inspired Oxygen 09/21/24 19:47 09/21/24 20:00 09/21/24 22:02 Temperature Pulse Rate 86 85 Respiratory Rate 20 Blood Pressure Pulse Oximetry 94 Oxygen Delivery Room Air Room Air Fraction of Inspired Oxygen 21 09/21/24 22:21 09/21/24 23:58 09/22/24 00:00 Temperature 99.1 F Pulse Rate 99 88 83 Respiratory Rate 22 H Blood Pressure 186/53 H Pulse Oximetry 96 Oxygen Delivery Room Air Fraction of Inspired Oxygen 09/22/24 00:00 09/22/24 02:00 09/22/24 03:37 Temperature 100.4 F H Pulse Rate 91 83 92 Respiratory Rate 22 H Blood Pressure 154/55 H Pulse Oximetry 93 Oxygen Delivery Fraction of Inspired Oxygen 09/22/24 03:59 09/22/24 04:00 09/22/24 06:00 Temperature Pulse Rate 84 84 80 Respiratory Rate Blood Pressure Pulse Oximetry Oxygen Delivery Room Air Fraction of Inspired Oxygen 09/22/24 08:00 09/22/24 08:43 Temperature 99.0 F Pulse Rate 82 80 Respiratory Rate 24 H Blood Pressure 156/62 H Pulse Oximetry 95 Oxygen Delivery Fraction of Inspired Oxygen Intake/Output Intake/Output: Intake & Output 09/19/24 09/20/24 09/21/24 09/22/24 23:59 23:59 23:59 23:59 Intake Total 1000 3080.9 665.0 Output Total 300 650 800 Balance 700 2430.9 -135.0 Meds/Results Medications: Active Medications Generic Name Dose Route Start Last Admin Trade Name Freq PRN Reason Stop Dose Admin Aspirin 81 mg 09/22/24 09:00 09/22/24 08:43 Aspirin 81 Mg Enteric Tablet PO 81 mg BID ELIJAH Administration Atorvastatin Calcium 80 mg 09/21/24 13:30 09/21/24 14:19 Atorvastatin 40 Mg Tablet PO 80 mg DAILY ELIJAH Administration Dextrose 12.5 gm 09/21/24 00:14 Dextrose 50% 25 Gm/50 Ml Syringe IV PUSH PRN PRN Hypoglycemia Protocol Glucagon 1 mg 09/21/24 00:14 Glucagon For Inj 1 Mg Vial IM PRN PRN Hypoglycemia Protocol Glucose 15 gm 09/21/24 00:14 Glucose Oral Gel 15 Gm Of Glucse In 37.5 Gm Tube PO PRN PRN Hypoglycemia Protocol Heparin Sodium (Porcine) 4,000 units 09/21/24 00:34 09/21/24 14:55 Heparin Sodium 5,000 Units/Ml Vial IV PUSH 4,000 units PRN PRN Administration aPTT less than 55 seconds Heparin Sodium (Porcine) 3,500 units 09/21/24 00:34 09/21/24 22:15 Heparin Sodium 5,000 Units/Ml Vial IV PUSH 3,500 units PRN PRN Administration aPTT 55 - 70 seconds Dextrose 1,000 mls @ 100 mls/hr 09/21/24 00:14 Dextrose 5% 1,000 Ml IVPB PRN PRN Hypoglycemia Protocol Heparin Sodium/Dextrose 25,000 units in 250 mls @ 20 mls/hr 09/21/24 00:35 09/22/24 08:49 Heparin Sodium/D5w 100 Units/Ml IV CONT 20 units/hr .[id number] [facility] 0.2 mls/hr Administration Protocol 2,000 UNITS/HR Insulin Aspart 4 - 8 units 09/21/24 08:00 09/22/24 08:45 Insulin Aspart (*Bkc) 100 Units/Ml SUB-Q Not Given TIDWM [facility] Protocol Insulin Aspart 2 - 4 units 09/21/24 21:00 09/21/24 20:41 Insulin Aspart (*Bkc) 100 Units/Ml SUB-Q 2 units HS [facility] Administration Protocol Insulin Aspart 6 units 09/21/24 12:00 09/22/24 08:44 Insulin Aspart (*Bkc) 100 Units/Ml 0.05 units/kg (6 units) 6 units SUB-Q Administration TIDWM [facility] Insulin Glargine 20 units 09/21/24 21:00 09/21/24 20:40 Insulin Glargine (*Bkc) 100 Units/Ml SUB-Q 20 units HS ELIJAH Administration Metoprolol Tartrate 12.5 mg 09/22/24 09:00 09/22/24 08:43 Metoprolol Tartrate 12.5 Mg Tablet PO 12.5 mg Q12HR ELIJAH Administration Perflutren Lipid Microsphere 0 ml 09/21/24 09:33 Perflutren Lipid Microspheres 1.5 Ml Vial Diluted To 10 Ml Total Volume IV PUSH 09/24/24 09:33 ONCE PRN adequate visualization Protocol Radiology Results: ITS Impressions Chest X-Ray 09/20/24 20:34 IMPRESSION: No focal infiltrate or effusion. Abdomen/Pelvis CT 09/20/24 23:03 IMPRESSION: Fatty infiltration of a markedly enlarged liver. Cholelithiasis. Findings caudal to the tail of the pancreas for which an early pseudocyst formation versus carcinoid is suspected. Nonobstructing stones within the bilateral kidneys. Chest CTA 09/21/24 15:12 IMPRESSION: 1. No pulmonary embolism. 2. No acute cardiopulmonary pathology. 3. Fat infiltration of the liver. 4. Cholelithiasis. 5. Left adrenal adenoma. No follow-up advised unless clinically warranted. Labs Labs: Laboratory Results - last 24 hr 09/21/24 09/21/24 09/21/24 04:10 11:26 14:19 WBC RBC Hgb Hct MCV MCH MCHC RDW Plt Count MPV Immature Gran % (Auto) Neut % (Auto) Lymph % (Auto) [place] % (Auto) Eos % (Auto) Baso % (Auto) Lymph # (Auto) [place] # (Auto) Eos # (Auto) Baso # (Auto) Abs Immat Gran (auto) Absolute Neuts (auto) Absolute Nucleated RBC Nucleated RBC % % Immature Plt Fraction APTT 42.3 H POC Capillary Glucose 269 H Ferritin 815.00 H 09/21/24 09/21/24 09/21/24 15:47 20:22 21:20 WBC RBC Hgb Hct MCV MCH MCHC RDW Plt Count MPV Immature Gran % (Auto) Neut % (Auto) Lymph % (Auto) [place] % (Auto) Eos % (Auto) Baso % (Auto) Lymph # (Auto) [place] # (Auto) Eos # (Auto) Baso # (Auto) Abs Immat Gran (auto) Absolute Neuts (auto) Absolute Nucleated RBC Nucleated RBC % % Immature Plt Fraction APTT 67.1 H POC Capillary Glucose 282 H 273 H Ferritin 09/22/24 09/22/24 04:39 07:22 WBC 5.2 RBC 4.26 L Hgb 13.0 L Hct 39.2 L MCV 92.0 MCH 30.5 MCHC 33.2 RDW 13.1 Plt Count 101 L MPV 9.9 Immature Gran % (Auto) 0.6 H Neut % (Auto) 66.8 Lymph % (Auto) 22.7 [place] % (Auto) 8.3 Eos % (Auto) 1.0 Baso % (Auto) 0.6 Lymph # (Auto) 1.17 [place] # (Auto) 0.4 Eos # (Auto) 0.1 Baso # (Auto) 0.0 Abs Immat Gran (auto) 0.03 Absolute Neuts (auto) 3.4 Absolute Nucleated RBC 0.000 Nucleated RBC % 0.0 % Immature Plt Fraction 2.3 APTT 98.9 H POC Capillary Glucose 251 H Ferritin
--- NOTE | 2024-09-22 09:59 | WPDMODSED ---
Moderate Sedation Note-Pt Data Patient Data Diagnosis: Elevated troponin, fatigue and weakness, new diagnosis of uncontrolled diabetes mellitus and poorly controlled hypertension Present Complaint: Extreme fatigue and weakness Procedure to be performed/Plan: Left heart catheterization, coronary angiogram, possible PCI Allergies Allergy/AdvReac Type Severity Reaction Status Date / Time No Known Allergies Allergy Mild Verified 10/05/23 15:43 Home Medications ?Medication ?Instructions ?Recorded ?Confirmed ?Type ustekinumab 90 mg/mL subcutaneous 90 mg subcut [id number] 09/21/24 09/21/24 History syringe (Paraslara) Current Medications: Active Medications Aspirin (Aspirin 81 Mg Enteric Tablet) 81 mg PO BID [facility] Last Admin: 09/22/24 08:43 Dose: 81 mg Atorvastatin Calcium (Atorvastatin 40 Mg Tablet) 80 mg PO DAILY [facility] Last Admin: 09/21/24 14:19 Dose: 80 mg Dextrose (Dextrose 50% 25 Gm/50 Ml Syringe) 12.5 gm IV PUSH PRN PRN; Protocol PRN Reason: Hypoglycemia Glucagon (Glucagon For Inj 1 Mg Vial) 1 mg IM PRN PRN; Protocol PRN Reason: Hypoglycemia Glucose (Glucose Oral Gel 15 Gm Of Glucse In 37.5 Gm Tube) 15 gm PO PRN PRN; Protocol PRN Reason: Hypoglycemia Heparin Sodium (Porcine) (Heparin Sodium 5,000 Units/Ml Vial) 4,000 units IV PUSH PRN PRN PRN Reason: aPTT less than 55 seconds Last Admin: 09/21/24 14:55 Dose: 4,000 units Heparin Sodium (Porcine) (Heparin Sodium 5,000 Units/Ml Vial) 3,500 units IV PUSH PRN PRN PRN Reason: aPTT 55 - 70 seconds Last Admin: 09/21/24 22:15 Dose: 3,500 units Dextrose (Dextrose 5% 1,000 Ml) 1,000 mls @ 100 mls/hr IVPB PRN PRN; Protocol PRN Reason: Hypoglycemia Heparin Sodium/Dextrose (Heparin Sodium/D5w 100 Units/Ml) 25,000 units in 250 mls @ 20 mls/hr IV CONT .[id number] [facility]; Protocol Last Admin: 09/22/24 08:49 Dose: 20 units/hr, 0.2 mls/hr Insulin Aspart (Insulin Aspart (*Bkc) 100 Units/Ml) 4 - 8 units SUB-Q TIDWM [facility]; Protocol Last Admin: 09/22/24 08:45 Dose: Not Given Insulin Aspart (Insulin Aspart (*Bkc) 100 Units/Ml) 2 - 4 units SUB-Q HS [facility]; Protocol Last Admin: 09/21/24 20:41 Dose: 2 units Insulin Aspart (Insulin Aspart (*Bkc) 100 Units/Ml) 6 units 0.05 units/kg (6 units) SUB-Q TIDWM [facility] Last Admin: 09/22/24 08:44 Dose: 6 units Insulin Glargine (Insulin Glargine (*Bkc) 100 Units/Ml) 20 units SUB-Q HS [facility] Last Admin: 09/21/24 20:40 Dose: 20 units Metoprolol Tartrate (Metoprolol Tartrate 12.5 Mg Tablet) 12.5 mg PO Q12HR [facility] Last Admin: 09/22/24 08:43 Dose: 12.5 mg Perflutren Lipid Microsphere (Perflutren Lipid Microspheres 1.5 Ml Vial Diluted To 10 Ml Total Volume) 0 ml IV PUSH ONCE PRN; Protocol PRN Reason: adequate visualization Stop: 09/24/24 09:33 Sedation/Anesthesia: No previous sedation/anesthesia problems (including family history). [facility] Past Medical History Medical History (Updated 09/21/24 @ 13:34 by Griselda Juarez MD) Obesity (BMI 30-39.9) Hx of squamous cell carcinoma Neck/Resected 2007 Surgical History Surgical History (Updated 09/21/24 @ 09:25 by Lisa Robison DO) Status post surgical removal of malignant neoplasm of skin (~2007) Family History Family History Father Muscular atrophy Mother Breast cancer Grandparent Breast cancer Social History Social History (Updated 09/21/24 @ 09:26 by Lisa Robison DO) Social History: Code status: Full code (per EMR) Surrogate decision maker: Smoking packs per day: 2 Smoking cigarettes per day: 40.0 Smoking status: Former smoker Tobacco type: cigarettes Alcohol intake: never Substance use: never Do You Feel Safe in your Home?: Yes Lack of Transportation: No Lack of Food: Never True Current Housing: I Have Housing Concerned About Future Housing: No Difficulty Paying Gas/Electric Bills: No Difficulty Paying for Meds: No Currently Unemployed: No Education: High School Diploma/GED Difficulty w/ Childcare or Family Care: No Additional living arrangements comments: Lives with . 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 Spiritual care concerns: No Mod Sed Physical Exam Physical Exam Pre Procedural Exam: Normal: Lungs, Heart Size and Heart Rate Hours since solid foods: 12 Hours since liquid intake: 12 Mallampati Classification: class III Internal Medicine - PN: Obj Da Vital Signs Vital Signs: Vital Signs - 24 hr 09/21/24 11:55 09/21/24 12:00 09/21/24 12:00 Temperature 36.9 C Pulse Rate 82 82 90 Respiratory Rate 22 H 22 H Blood Pressure 140/50 L Pulse Oximetry 94 94 Oxygen Delivery Room Air Fraction of Inspired Oxygen 09/21/24 14:00 09/21/24 16:35 09/21/24 16:45 Temperature 36.8 C Pulse Rate 84 86 85 Respiratory Rate 22 H Blood Pressure 146/66 H Pulse Oximetry 93 94 Oxygen Delivery Room Air Fraction of Inspired Oxygen 09/21/24 16:45 09/21/24 18:00 09/21/24 19:36 Temperature 37.2 C Pulse Rate 93 87 93 Respiratory Rate 22 H Blood Pressure 142/59 H Pulse Oximetry 94 Oxygen Delivery Fraction of Inspired Oxygen 09/21/24 19:47 09/21/24 20:00 09/21/24 22:02 Temperature Pulse Rate 86 85 Respiratory Rate 20 Blood Pressure Pulse Oximetry 94 Oxygen Delivery Room Air Room Air Fraction of Inspired Oxygen 21 09/21/24 22:21 09/21/24 23:58 09/22/24 00:00 Temperature 37.3 C Pulse Rate 99 88 83 Respiratory Rate 22 H Blood Pressure 186/53 H Pulse Oximetry 96 Oxygen Delivery Room Air Fraction of Inspired Oxygen 09/22/24 00:00 09/22/24 02:00 09/22/24 03:37 Temperature 38.0 C H Pulse Rate 91 83 92 Respiratory Rate 22 H Blood Pressure 154/55 H Pulse Oximetry 93 Oxygen Delivery Fraction of Inspired Oxygen 09/22/24 03:59 09/22/24 04:00 09/22/24 06:00 Temperature Pulse Rate 84 84 80 Respiratory Rate Blood Pressure Pulse Oximetry Oxygen Delivery Room Air Fraction of Inspired Oxygen 09/22/24 08:00 09/22/24 08:43 Temperature 37.2 C Pulse Rate 82 80 Respiratory Rate 24 H Blood Pressure 156/62 H Pulse Oximetry 95 Oxygen Delivery Fraction of Inspired Oxygen Intake/Output Intake/Output: Intake & Output 09/19/24 09/20/24 09/21/24 09/22/24 23:59 23:59 23:59 23:59 Intake Total 1000 3080.9 665.0 Output Total 300 650 800 Balance 700 2430.9 -135.0 Meds/Results Medications: Active Medications Generic Name Dose Route Start Last Admin Trade Name Freq PRN Reason Stop Dose Admin Aspirin 81 mg 09/22/24 09:00 09/22/24 08:43 Aspirin 81 Mg Enteric Tablet PO 81 mg BID [facility] Administration Atorvastatin Calcium 80 mg 09/21/24 13:30 09/21/24 14:19 Atorvastatin 40 Mg Tablet PO 80 mg DAILY [facility] Administration Dextrose 12.5 gm 09/21/24 00:14 Dextrose 50% 25 Gm/50 Ml Syringe IV PUSH PRN PRN Hypoglycemia Protocol Glucagon 1 mg 09/21/24 00:14 Glucagon For Inj 1 Mg Vial IM PRN PRN Hypoglycemia Protocol Glucose 15 gm 09/21/24 00:14 Glucose Oral Gel 15 Gm Of Glucse In 37.5 Gm Tube PO PRN PRN Hypoglycemia Protocol Heparin Sodium (Porcine) 4,000 units 09/21/24 00:34 09/21/24 14:55 Heparin Sodium 5,000 Units/Ml Vial IV PUSH 4,000 units PRN PRN Administration aPTT less than 55 seconds Heparin Sodium (Porcine) 3,500 units 09/21/24 00:34 09/21/24 22:15 Heparin Sodium 5,000 Units/Ml Vial IV PUSH 3,500 units PRN PRN Administration aPTT 55 - 70 seconds Dextrose 1,000 mls @ 100 mls/hr 09/21/24 00:14 Dextrose 5% 1,000 Ml IVPB PRN PRN Hypoglycemia Protocol Heparin Sodium/Dextrose 25,000 units in 250 mls @ 20 mls/hr 09/21/24 00:35 09/22/24 08:49 Heparin Sodium/D5w 100 Units/Ml IV CONT 20 units/hr .[id number] [facility] 0.2 mls/hr Administration Protocol 2,000 UNITS/HR Insulin Aspart 4 - 8 units 09/21/24 08:00 09/22/24 08:45 Insulin Aspart (*Bkc) 100 Units/Ml SUB-Q Not Given TIDWM [facility] Protocol Insulin Aspart 2 - 4 units 09/21/24 21:00 09/21/24 20:41 Insulin Aspart (*Bkc) 100 Units/Ml SUB-Q 2 units HS [facility] Administration Protocol Insulin Aspart 6 units 09/21/24 12:00 09/22/24 08:44 Insulin Aspart (*Bkc) 100 Units/Ml 0.05 units/kg (6 units) 6 units SUB-Q Administration TIDWM [facility] Insulin Glargine 20 units 09/21/24 21:00 09/21/24 20:40 Insulin Glargine (*Bkc) 100 Units/Ml SUB-Q 20 units HS [facility] Administration Metoprolol Tartrate 12.5 mg 09/22/24 09:00 09/22/24 08:43 Metoprolol Tartrate 12.5 Mg Tablet PO 12.5 mg Q12HR [facility] Administration Perflutren Lipid Microsphere 0 ml 09/21/24 09:33 Perflutren Lipid Microspheres 1.5 Ml Vial Diluted To 10 Ml Total Volume IV PUSH 09/24/24 09:33 ONCE PRN adequate visualization Protocol Radiology Results: ITS Impressions Chest X-Ray 09/20/24 20:34 IMPRESSION: No focal infiltrate or effusion. Abdomen/Pelvis CT 09/20/24 23:03 IMPRESSION: Fatty infiltration of a markedly enlarged liver. Cholelithiasis. Findings caudal to the tail of the pancreas for which an early pseudocyst formation versus carcinoid is suspected. Nonobstructing stones within the bilateral kidneys. Chest CTA 09/21/24 15:12 IMPRESSION: 1. No pulmonary embolism. 2. No acute cardiopulmonary pathology. 3. Fat infiltration of the liver. 4. Cholelithiasis. 5. Left adrenal adenoma. No follow-up advised unless clinically warranted. Labs 09/22/24 04:39 09/21/24 04:10 Labs: Laboratory Results - last 24 hr 09/21/24 09/21/24 09/21/24 04:10 11:26 14:19 WBC RBC Hgb Hct MCV MCH MCHC RDW Plt Count MPV Immature Gran % (Auto) Neut % (Auto) Lymph % (Auto) Ness % (Auto) Eos % (Auto) Baso % (Auto) Lymph # (Auto) Ness # (Auto) Eos # (Auto) Baso # (Auto) Abs Immat Gran (auto) Absolute Neuts (auto) Absolute Nucleated RBC Nucleated RBC % % Immature Plt Fraction APTT 42.3 H POC Capillary Glucose 269 H Ferritin 815.00 H 09/21/24 09/21/24 09/21/24 15:47 20:22 21:20 WBC RBC Hgb Hct MCV MCH MCHC RDW Plt Count MPV Immature Gran % (Auto) Neut % (Auto) Lymph % (Auto) Ness % (Auto) Eos % (Auto) Baso % (Auto) Lymph # (Auto) Ness # (Auto) Eos # (Auto) Baso # (Auto) Abs Immat Gran (auto) Absolute Neuts (auto) Absolute Nucleated RBC Nucleated RBC % % Immature Plt Fraction APTT 67.1 H POC Capillary Glucose 282 H 273 H Ferritin 09/22/24 09/22/24 04:39 07:22 WBC 5.2 RBC 4.26 L Hgb 13.0 L Hct 39.2 L MCV 92.0 MCH 30.5 MCHC 33.2 RDW 13.1 Plt Count 101 L MPV 9.9 Immature Gran % (Auto) 0.6 H Neut % (Auto) 66.8 Lymph % (Auto) 22.7 Ness % (Auto) 8.3 Eos % (Auto) 1.0 Baso % (Auto) 0.6 Lymph # (Auto) 1.17 Ness # (Auto) 0.4 Eos # (Auto) 0.1 Baso # (Auto) 0.0 Abs Immat Gran (auto) 0.03 Absolute Neuts (auto) 3.4 Absolute Nucleated RBC 0.000 Nucleated RBC % 0.0 % Immature Plt Fraction 2.3 APTT 98.9 H POC Capillary Glucose 251 H Ferritin ASA Classification/Sedation ASA Classification/Sedation ASA Class: III Emergent: No Risks: Risks, benefits and alternatives explained and patient/family accepted plan for sedation. Patient re-evaluated immediately prior to sedation.
[2024-09-22 10:06] LABS: Alanine Aminotransferase 195 U/L (6-50); Albumin Level 3.4 g/dL (3.5-5.1); Alkaline Phosphatase 50 U/L (38-126); Anion Gap 6 mmol/L (4-12); Aspartate Amino Transferase 95 U/L (17-59); Bilirubin,Total 1.3 mg/dL (0.2-1.3); Blood Urea Nitrogen 9 mg/dL (9-20); Calcium 8.2 mg/dL (8.4-10.2); Carbon Dioxide 24 mmol/L (22-30); Chloride 106 mmol/L (98-107); Estimated CRCL calculation 104 ml/min; Estimated Glomerular Filt Rate > 60; Glucose 248 mg/dL (65-110); Potassium 4.1 mmol/L (3.4-5.0); Sodium 136 mmol/L (137-145); Total Protein 6.8 g/dL (6.3-8.2)
--- NOTE | 2024-09-22 12:40 | WPDHPUPDATE1 ---
History and Physical Update Update Date/Time: 09/22/24 11:00 History and Physical has been reviewed, including an updated exam of the patient. There are NO changes in the patient's condition. Risks, benefits, and alternatives have been discussed and questions answered. Patient agrees to proceed with procedure.
--- NOTE | 2024-09-22 12:40 | WPDCARDPROC ---
Cardiac Cath Procedure Note Date of procedure:: 09/22/24 Performing physician:: Griselda Juarez MD Indication:: CATHETERIZATION LABORATORY REPORT Procedure Date: 09/22/2024 Anesthesia: Versed and Fentanyl were ordered and given in my presence at 12:05 p.m., procedure ended at 12:26 p.m.. Supervision of nurse monitored moderate sedation with Versed and Fentanyl was provided for 21 minutes. Versed: 1 mg Fentanyl: 100 mcg Pre-op Diagnosis: Fatigue and elevated troponin Poorly controlled diabetes mellitus and hypertension-new diagnoses Post-op Diagnosis: Nonobstructive CAD-20% stenosis of the proximal and mid RCA, ectasia of proximal RCA; 20% stenosis of proximal and mid LAD, 40% stenosis ostial 1st diagonal, 20% stenosis proximal to mid ramus intermedius Procedure(s): Left heart catheterization with coronary angiography Access Site: Right radial artery Brief History and Clinical Indications: All risks, benefits and alternatives to left heart catheterization with or without percutaneous coronary intervention was discussed at length with the patient. Risk of complications including but not limited to bleeding, infection, arrhythmia, stroke, worsening kidney function, blood loss, groin hematoma, limb loss, emergency coronary artery bypass grafting, and even were discussed with the patient and all questions were answered. The patient understood and wished to proceed. Time out called, patient name, date of , medical record number, allergies, procedure performed, identify Review Scheduling Coordinator, patient and staff member concurred with accurate data, procedure carried on. Findings: LEFT HEART CATHETERIZATION FINDINGS: 1. Left main: The left main coronary artery is widely patent without 20% stenosis in the body and distal left main. 2. Left anterior descending: The proximal and mid LAD has 20% stenosis. The LAD gives of 2 large diagonal branches. The 1st diagonal has 40% ostial stenosis. 3. Left circumflex: The left circumflex artery is a small vessel with minimal luminal irregularities. 4. Ramus intermedius: There is a large bifurcating ramus intermedius/high OM with 20% stenosis in the mid vessel. 5. Right coronary artery: The proximal and mid RCA has 20% stenosis. 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 The RCA is the dominant vessel. The are right posterior descending and right posterolateral branches are without any significant obstructive disease. 5. Left ventricle: A. End-diastolic pressure 33 mmHg. B. LV gram deferred. C. No significant gradient across aortic valve on catheter pullback. 6. Opening AO pressure 115/65/9 and closing AO pressure 116/69/91 mm Hg Description of Procedure: Informed consent signed and placed in the chart. Patient transferred to agriculture laborer room. Prepped and draped in usual sterile fashion. 2% lidocaine injected subcutaneously in right wrist area. 22-gauge venipuncture catheter used to access the right radial artery with the Seldinger technique. 6-FR slender sheath placed in right radial artery. Nitroglycerin 200mcg, Verapamil 2.5mg, and Heparin 5000U was given intraarterial through the sheath. J wire advanced under fluoroscopy [place] JL 3.5 diagnostic catheter engaged Left Main Coronary Artery. [place] JR4 guide catheter engaged Right Coronary Artery Multiple orthogonal angiogram obtained and reviewed 5 [place] JR4 diagnostic catheter crossed aortic valve to obtain LVEDP, LV angiogram deferred. Hemostasis was achieved by application of TR band. 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 Continue aspirin 81 mg daily indefinitely. Plavix 75 mg daily for 1 year. Atorvastatin 40 mg daily. Add lisinopril 2.5 mg daily. Continue aggressive medical therapy and risk factor modification. TTE.
--- NOTE | 2024-09-22 14:59 | P.CONGI_ITS ---
Assessment and Plan Assessment and plan (1) Cholelithiasis: Qualifiers: Cholelithiasis location: gallbladder Code(s): K80.20 - Calculus of gallbladder without cholecystitis without obstruction Status: Acute Assessment and Plan: While imaging reveals no choledocholithiasis and his improving liver enzyme and bilirubin levels are consistent with this (the patient probably passed a stone already) , he still needs a laparoscopic cholecystectomy. Determining the ideal timing for this surgery will require a joint consultation between surgery and cardiology. This is important for establishing the safest approach, considering his recent diagnosis of diabetes and non-critical coronary artery disease. An intraoperative cholangiogram will be needed during cholecystectomy, and if a CBD stone is fouund, a postoperative ERCP will follow. GI Consult Note Consult date/time: 09/22/24 14:59 Reason for consult: Cholelithiasis HPI: Alexandro Rizo is a 69 year old male who was admitted on 09/20/2024 with nonspecific weakness and general malaise. He has a history of psoriatic arthritis currently under treatment with Stelara. During admission he was found to have a severely high glucose level of around 350, making a diagnosis of new onset diabetes. During the hospital course he had high troponin and underwent cardiac catheterization today showing multiple vessel, noncritical coronary artery disease, not requiring stents. The reason for the consultation is because of increased transaminase levels and the presence of cholelithiasis. On 09/20: ALT 402, ; 09/21/2024: ALT 284, bilirubin 2.4 . today: AST 95, ALT 195, bilirubin 1.3. An MRCP done today showed cholelithiasis but no evidence of choledocholithiasis. Review of Systems 2 Review of Systems: All systems reviewed & are unremarkable except as noted in HPI and below [facility] Past Medical History Medical History (Updated 09/21/24 @ 13:34 by Griselda Juarez MD) Obesity (BMI 30-39.9) Hx of squamous cell carcinoma Neck/Resected 2007 Surgical History Surgical History (Updated 09/21/24 @ 09:25 by Lisa Robison DO) Status post surgical removal of malignant neoplasm of skin (~2007) Family History Family History Father Muscular atrophy Mother Breast cancer Grandparent Breast cancer Social History Social History (Updated 09/21/24 @ 09:26 by Lisa Robison DO) Social History: Code status: Full code (per EMR) Surrogate decision maker: Smoking packs per day: 2 Smoking cigarettes per day: 40.0 Smoking status: Former smoker Tobacco type: cigarettes Alcohol intake: never Substance use: never Do You Feel Safe in your Home?: Yes Lack of Transportation: No Lack of Food: Never True Current Housing: I Have Housing Concerned About Future Housing: No Difficulty Paying Gas/Electric Bills: No Difficulty Paying for Meds: No Currently Unemployed: No Education: High School Diploma/GED Difficulty w/ Childcare or Family Care: No Additional living arrangements comments: Lives with . 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 Spiritual care concerns: No Meds Home Medications and Allergies Home Medications ?Medication ?Instructions ?Recorded ?Confirmed ?Type ustekinumab 90 mg/mL subcutaneous 90 mg subcut [id number] 09/21/24 09/21/24 History syringe (Stelara) Allergies Allergy/AdvReac Type Severity Reaction Status Date / Time No Known Allergies Allergy Mild Verified 10/05/23 15:43 Vital Signs Vital Signs - 24 hr 09/21/24 16:35 09/21/24 16:45 09/21/24 16:45 Temperature 98.3 F Pulse Rate 86 85 93 Pulse Rate [Right Radial] Respiratory Rate 22 H Blood Pressure 146/66 H Pulse Oximetry 93 94 Oxygen Delivery Room Air Fraction of Inspired Oxygen 09/21/24 18:00 09/21/24 19:36 09/21/24 19:47 Temperature 99.0 F Pulse Rate 87 93 86 Pulse Rate [Right Radial] Respiratory Rate 22 H Blood Pressure 142/59 H Pulse Oximetry 94 Oxygen Delivery Room Air Fraction of Inspired Oxygen 09/21/24 20:00 09/21/24 22:02 09/21/24 22:21 Temperature Pulse Rate 85 99 Pulse Rate [Right Radial] Respiratory Rate 20 Blood Pressure Pulse Oximetry 94 Oxygen Delivery Room Air Fraction of Inspired Oxygen 21 09/21/24 23:58 09/22/24 00:00 09/22/24 00:00 Temperature 99.1 F Pulse Rate 88 83 91 Pulse Rate [Right Radial] Respiratory Rate 22 H Blood Pressure 186/53 H Pulse Oximetry 96 Oxygen Delivery Room Air Fraction of Inspired Oxygen 09/22/24 02:00 09/22/24 03:37 09/22/24 03:59 Temperature 100.4 F H Pulse Rate 83 92 84 Pulse Rate [Right Radial] Respiratory Rate 22 H Blood Pressure 154/55 H Pulse Oximetry 93 Oxygen Delivery Room Air Fraction of Inspired Oxygen 09/22/24 04:00 09/22/24 06:00 09/22/24 08:00 Temperature 99.0 F Pulse Rate 84 80 82 Pulse Rate [Right Radial] Respiratory Rate 24 H Blood Pressure 156/62 H Pulse Oximetry 95 Oxygen Delivery Fraction of Inspired Oxygen 09/22/24 08:00 09/22/24 08:43 09/22/24 10:00 Temperature Pulse Rate 82 80 75 Pulse Rate [Right Radial] Respiratory Rate Blood Pressure Pulse Oximetry Oxygen Delivery Fraction of Inspired Oxygen 09/22/24 11:41 09/22/24 11:56 09/22/24 13:00 Temperature 99.3 F Pulse Rate 76 77 Pulse Rate [Right Radial] 72 Respiratory Rate 20 Blood Pressure 131/49 L Pulse Oximetry 92 Oxygen Delivery Fraction of Inspired Oxygen 09/22/24 13:00 09/22/24 13:15 09/22/24 13:15 Temperature Pulse Rate 74 75 Pulse Rate [Right Radial] 75 Respiratory Rate 16 16 Blood Pressure 129/92 H 139/60 Pulse Oximetry 92 92 Oxygen Delivery Room Air Room Air Fraction of Inspired Oxygen 09/22/24 13:30 09/22/24 13:30 09/22/24 13:45 Temperature Pulse Rate 74 72 Pulse Rate [Right Radial] 74 Respiratory Rate 16 16 Blood Pressure 140/49 L 140/57 L Pulse Oximetry 92 92 Oxygen Delivery Room Air Room Air Fraction of Inspired Oxygen 09/22/24 13:45 09/22/24 14:00 09/22/24 14:00 Temperature Pulse Rate 74 Pulse Rate [Right Radial] 76 74 Respiratory Rate 17 Blood Pressure 142/54 H Pulse Oximetry 94 Oxygen Delivery Room Air Fraction of Inspired Oxygen 09/22/24 14:15 09/22/24 14:15 09/22/24 14:30 Temperature Pulse Rate 75 Pulse Rate [Right Radial] 75 75 Respiratory Rate 18 Blood Pressure 135/54 L Pulse Oximetry 96 Oxygen Delivery Room Air Fraction of Inspired Oxygen 09/22/24 14:30 09/22/24 14:45 09/22/24 14:45 Temperature Pulse Rate 75 75 Pulse Rate [Right Radial] 75 Respiratory Rate 17 16 Blood Pressure 130/58 L 133/58 L Pulse Oximetry 94 96 Oxygen Delivery Room Air Room Air Fraction of Inspired Oxygen Exam 2 Narrative: When I went to see the patient he was recovering from cardiac catheterization in the mechanical shop laborer and will not be in his room until later this afternoon. Results Labs 09/22/24 04:39 09/22/24 04:39 Labs: Short CBC 09/22/24 Range/Units 04:39 WBC 5.2 (4.5-10.0) K/mm3 Hgb 13.0 L (14.0-18.0) g/dL Hct 39.2 L (42.0-52.0) % Plt Count 101 L (150-375) k/mm3 BMP 09/22/24 04:39 Sodium 136 L Potassium 4.1 Chloride 106 Carbon Dioxide 24 BUN 9 Creatinine 0.74 Glucose 248 H Calcium 8.2 L Liver Function 09/22/24 Range/Units 04:39 Total Bilirubin 1.3 (0.2-1.3) mg/dL AST 95 H (17-59) U/L ALT 195 H (6-50) U/L Alkaline Phosphatase 50 (38-126) U/L Albumin 3.4 L (3.5-5.1) g/dL
--- NOTE | 2024-09-22 15:45 | PM.CNGS ---
Assessment and Plan Assessment and plan (1) Cholelithiasis: Qualifiers: Cholelithiasis location: gallbladder Code(s): K80.20 - Calculus of gallbladder without cholecystitis without obstruction Status: Acute Assessment and Plan: The patient presented with generalized weakness progressing over the past year with recent rapid decline. He was diagnosed with pancreatitis nearly 1 year ago and refused admission at that time. On this admission, he does not appear to have pancreatitis, but imaging suggests a small pancreatic pseudocyst, likely from previous episode of pancreatitis. Imaging also shows findings of cholelithiasis without any signs of inflammation of the gallbladder. MRCP showed no common bile duct stone and his total bilirubin has normalized. At present, there is no real urgency to proceed with a laparoscopic cholecystectomy unless he has acute cholecystitis. He has multiple other medical issues that are being addressed and make him a poor surgical candidate for an elective cholecystectomy. We will order a HIDA scan to evaluate for cystic duct occlusion. His blood cultures are showing growth of gram negative bacilli and he has had low grade fevers. If the HIDA scan shows cystic duct occlusion, then he may need intervention sooner. If the HIDA scan is negative, then we would likely recommend outpatient follow-up in our office with Dr. Saab once he gets his newly diagnosed diabetes, depression, and chronic knee pain addressed. Will order plain films of bilateral knees today. Recommend Orthopedic consultation to evaluate his knee pain. He also is showing signs of depression that has been progressive. We would recommend Psychiatric consultation to evaluate and treat his depression. (2) Transaminitis: Code(s): R74.01 - Elevation of levels of liver transaminase levels Status: Acute Assessment and Plan: Improving. Total bilirubin normalized. MRCP showed no common duct stones. Could have passed a stone. GI following. (3) Bilateral knee pain: Code(s): M25.561 - Pain in right knee; M25.562 - Pain in left knee Status: Acute Assessment and Plan: Chronic bilateral knee pain that is limiting his ability to ambulate. He has had a steady decline in the past year affecting his quality of life and seems to be contributing to some depression. Will order plain films of his knees. Recommend Orthopedic consultation and evaluation for his knee pain. (4) Adult failure to thrive: Code(s): R62.7 - Adult failure to thrive Status: Acute Assessment and Plan: Patient with lack of motivation that has progressed in the past year. This seems to be related to some undiagnosed depression. Would recommend Psychiatric consultation to evaluate and treat his depression. (5) Type 2 diabetes mellitus with hyperglycemia: Qualifiers: Diabetes mellitus [employer] insulin use: without [facility] use Qualified Code(s): E11.65 - Type 2 diabetes mellitus with hyperglycemia Code(s): E11.65 - Type 2 diabetes mellitus with hyperglycemia Status: Acute (6) Hepatic steatosis: Onset Date: 09/2024 Code(s): K76.0 - Fatty (change of) liver, not elsewhere classified Status: Acute (7) Coronary artery disease: Code(s): I25.10 - Atherosclerotic heart disease of [place] coronary artery without angina pectoris Status: Acute Assessment and Plan: Mild CAD on cardiac cath today. Cardiology recommending Plavix x 1 year. (8) Pancreatic pseudocyst: Code(s): K86.3 - Pseudocyst of pancreas Status: Acute (9) Bacteremia: Code(s): R78.81 - Bacteremia Status: Acute Plan I have discussed the patient's case and plan of care with Dr. Saab. History of Present Illness Consult details Consult date: 09/22/24 Reason for consult: other (Evaluation for cholecystectomy, Pancreatitis) Requesting physician: Frankie Mcgrath MD Narrative: This is a 69-year-old man with psoriatic arthritis on treatment with Stelara, who we have been asked to see in surgical consultation for evaluation for a cholecystectomy in the setting of pancreatitis. He was brought into the ED 2 days ago via EMS from home for evaluation of generalized weakness. Initial workup in the ED showed transaminitis, elevated troponin, lactic acid 4.0, WBC normal, and lipase normal. CT abdomen/pelvis showed fatty liver, cholelithiasis, and an erly pancreatic pseudocyst formation vs carcinoid and nonobstructing stones in bilateral kidneys. He was admitted. Cardiology was consulted. Repeat troponin went up. He was started on a Heparin drip for possible ACS. Chest CTA ordered and showed no PE and no acute cardiopulmonary pathology. Serial labs showed his bilirubin went up to 2.4 at peak and is down to 1.3 today. AST, ALT, and alk phos are all trending down. MRCP was ordered and done today, which showed cholelithiasis without choledocholithiasis or biliary dilation, hepatomegaly with diffuse hepatic steatosis, 2.1 x 1.2 cm likely pseudocyst related to prior acute pancreatitis. Patient had cardiac catheterization today that showed mild coronary artery disease without requiring intervention. Cardiology recommending Plavix x 1 year, which has not been started. He was also diagnosed with diabetes during this admission, which is new. Hgb A1C is 10.6. To note, he was in the ED last November and diagnosed with acute pancreatitis. He refused admission and went home. He reportedly followed up with his PCP, but there is no record of that appointment. It appears he follows with Dr. Simon, who he last saw in September of 2023 for cold symptoms and jerking movements. He has declined over the past year per his . He is no longer ambulating well due to chronic bilateral knee pain. His reports he is shuffling from cough to bathroom and back to bed. He has not left the house in a long time. He denies any recent episodes of abdominal pain, nausea, or vomiting. Although, he does report having acholic pale elticia-colored stools right before admission as well as dark urine. Review of Systems Review of Systems: All systems reviewed & are unremarkable except as noted in HPI and below (difficult as patient is a poor historian) [facility] Past Medical History Medical History Psoriatic arthritis Obesity (BMI 30-39.9) Hx of squamous cell carcinoma Neck/Resected 2007 Surgical History Surgical History Status post surgical removal of malignant neoplasm of skin (~2007) Family History Family History Father Muscular atrophy Mother Breast cancer Grandparent Breast cancer Social History Social History Social History: Code status: Full code (per EMR) Surrogate decision maker: Smoking packs per day: 2 Smoking cigarettes per day: 40.0 Smoking status: Former smoker Tobacco type: cigarettes Alcohol intake: never Substance use: never Do You Feel Safe in your Home?: Yes Lack of Transportation: No Lack of Food: Never True Current Housing: I Have Housing Concerned About Future Housing: No Difficulty Paying Gas/Electric Bills: No Difficulty Paying for Meds: No Currently Unemployed: No Education: High School Diploma/GED Difficulty w/ Childcare or Family Care: No Additional living arrangements comments: Lives with . 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 Spiritual care concerns: No Meds Home Medications and Allergies Home Medications ?Medication ?Instructions ?Recorded ?Confirmed ?Type ustekinumab 90 mg/mL subcutaneous 90 mg subcut [id number] 09/21/24 09/21/24 History syringe (Stelara) Allergies Allergy/AdvReac Type Severity Reaction Status Date / Time No Known Allergies Allergy Mild Verified 10/05/23 15:43 Vital Signs Vital Signs - 24 hr 09/21/24 16:35 09/21/24 16:45 09/21/24 16:45 Temperature 98.3 F Pulse Rate 86 85 93 Pulse Rate [Right Radial] Respiratory Rate 22 H Blood Pressure 146/66 H Pulse Oximetry 93 94 Oxygen Delivery Room Air Fraction of Inspired Oxygen 09/21/24 18:00 09/21/24 19:36 09/21/24 19:47 Temperature 99.0 F Pulse Rate 87 93 86 Pulse Rate [Right Radial] Respiratory Rate 22 H Blood Pressure 142/59 H Pulse Oximetry 94 Oxygen Delivery Room Air Fraction of Inspired Oxygen 09/21/24 20:00 09/21/24 22:02 09/21/24 22:21 Temperature Pulse Rate 85 99 Pulse Rate [Right Radial] Respiratory Rate 20 Blood Pressure Pulse Oximetry 94 Oxygen Delivery Room Air Fraction of Inspired Oxygen 21 09/21/24 23:58 09/22/24 00:00 09/22/24 00:00 Temperature 99.1 F Pulse Rate 88 83 91 Pulse Rate [Right Radial] Respiratory Rate 22 H Blood Pressure 186/53 H Pulse Oximetry 96 Oxygen Delivery Room Air Fraction of Inspired Oxygen 09/22/24 02:00 09/22/24 03:37 09/22/24 03:59 Temperature 100.4 F H Pulse Rate 83 92 84 Pulse Rate [Right Radial] Respiratory Rate 22 H Blood Pressure 154/55 H Pulse Oximetry 93 Oxygen Delivery Room Air Fraction of Inspired Oxygen 09/22/24 04:00 09/22/24 06:00 09/22/24 08:00 Temperature 99.0 F Pulse Rate 84 80 82 Pulse Rate [Right Radial] Respiratory Rate 24 H Blood Pressure 156/62 H Pulse Oximetry 95 Oxygen Delivery Fraction of Inspired Oxygen 09/22/24 08:00 09/22/24 08:43 09/22/24 10:00 Temperature Pulse Rate 82 80 75 Pulse Rate [Right Radial] Respiratory Rate Blood Pressure Pulse Oximetry Oxygen Delivery Fraction of Inspired Oxygen 09/22/24 11:41 09/22/24 11:56 09/22/24 13:00 Temperature 99.3 F Pulse Rate 76 77 Pulse Rate [Right Radial] 72 Respiratory Rate 20 Blood Pressure 131/49 L Pulse Oximetry 92 Oxygen Delivery Fraction of Inspired Oxygen 09/22/24 13:00 09/22/24 13:15 09/22/24 13:15 Temperature Pulse Rate 74 75 Pulse Rate [Right Radial] 75 Respiratory Rate 16 16 Blood Pressure 129/92 H 139/60 Pulse Oximetry 92 92 Oxygen Delivery Room Air Room Air Fraction of Inspired Oxygen 09/22/24 13:30 09/22/24 13:30 09/22/24 13:45 Temperature Pulse Rate 74 72 Pulse Rate [Right Radial] 74 Respiratory Rate 16 16 Blood Pressure 140/49 L 140/57 L Pulse Oximetry 92 92 Oxygen Delivery Room Air Room Air Fraction of Inspired Oxygen 09/22/24 13:45 09/22/24 14:00 09/22/24 14:00 Temperature Pulse Rate 74 Pulse Rate [Right Radial] 76 74 Respiratory Rate 17 Blood Pressure 142/54 H Pulse Oximetry 94 Oxygen Delivery Room Air Fraction of Inspired Oxygen 09/22/24 14:15 09/22/24 14:15 09/22/24 14:30 Temperature Pulse Rate 75 Pulse Rate [Right Radial] 75 75 Respiratory Rate 18 Blood Pressure 135/54 L Pulse Oximetry 96 Oxygen Delivery Room Air Fraction of Inspired Oxygen 09/22/24 14:30 09/22/24 14:45 09/22/24 14:45 Temperature Pulse Rate 75 75 Pulse Rate [Right Radial] 75 Respiratory Rate 17 16 Blood Pressure 130/58 L 133/58 L Pulse Oximetry 94 96 Oxygen Delivery Room Air Room Air Fraction of Inspired Oxygen 09/22/24 15:00 09/22/24 15:00 09/22/24 15:15 Temperature Pulse Rate 75 Pulse Rate [Right Radial] 76 75 Respiratory Rate 18 Blood Pressure 137/58 L Pulse Oximetry 94 Oxygen Delivery Room Air Fraction of Inspired Oxygen 09/22/24 15:15 09/22/24 15:30 09/22/24 15:30 Temperature Pulse Rate 75 75 Pulse Rate [Right Radial] 75 Respiratory Rate 20 18 Blood Pressure 146/50 H 127/69 Pulse Oximetry 94 95 Oxygen Delivery Room Air Room Air Fraction of Inspired Oxygen Exam Const: General: comfortable and no acute distress Nutritional Appearance: obese Orientation/consciousness: patient oriented x3 HENMT: Head: normocephalic and atraumatic Ears: hearing grossly normal bilaterally Mouth: Yes moist mucous membranes Eyes: General: appearance normal, both eyes and all related structures Pupils: Equal, round and reactive pupils present Neck: Neck: normal visual inspection and full ROM Resp: Effort & Inspection: no respiratory distress Auscultation: clear to auscultation bilaterally Cardio: Rate: regular rate Rhythm: regular rhythm Peripheral pulses: Peripheral pulses 2+ throughout GI: Inspection: non-distended, obesity, no scars and no visible herniation GI Palp: Yes Soft to palpation, No Tenderness to palpation present (GI), No Guarding due to palpation present (GI), Yes Hepatomegaly present and No Rebound tenderness present Auscultation: normal bowel sounds Skin: General skin exam: normal color Neuro: General: moves all extremities and no focal motor deficits Speech: normal speech Motor exam (neuro): 5/5 motor strength present throughout Extrem: General: normal to inspection and no edema Psych: Mental Status: mental status grossly normal Attitude: cooperative Insight: Good insight present (Psych) Judgement: Good judgement present (Psych) Results Labs 09/22/24 04:39 09/22/24 04:39 Labs: Abnormal lab results 09/21/24 09/21/24 09/21/24 Range/Units 04:10 15:47 20:22 RBC (4.6-6.20) M/mm3 Hgb (14.0-18.0) g/dL Hct (42.0-52.0) % Plt Count (150-375) k/mm3 Immature Gran % (Auto) (0-0.5) % APTT (22.3-36.8) Seconds Sodium (137-145) mmol/L Glucose (65-110) mg/dL POC Capillary Glucose 282 H 273 H (65-105) mg/dl Calcium (8.4-10.2) mg/dL Ferritin 815.00 H (11.1-264) ng/mL AST (17-59) U/L ALT (6-50) U/L Albumin (3.5-5.1) g/dL 09/21/24 09/22/24 09/22/24 Range/Units 21:20 04:39 07:22 RBC 4.26 L (4.6-6.20) M/mm3 Hgb 13.0 L (14.0-18.0) g/dL Hct 39.2 L (42.0-52.0) % Plt Count 101 L (150-375) k/mm3 Immature Gran % (Auto) 0.6 H (0-0.5) % APTT 67.1 H 98.9 H (22.3-36.8) Seconds Sodium 136 L (137-145) mmol/L Glucose 248 H (65-110) mg/dL POC Capillary Glucose 251 H (65-105) mg/dl Calcium 8.2 L (8.4-10.2) mg/dL Ferritin (11.1-264) ng/mL AST 95 H (17-59) U/L ALT 195 H (6-50) U/L Albumin 3.4 L (3.5-5.1) g/dL 09/22/24 Range/Units 11:28 RBC (4.6-6.20) M/mm3 Hgb (14.0-18.0) g/dL Hct (42.0-52.0) % Plt Count (150-375) k/mm3 Immature Gran % (Auto) (0-0.5) % APTT (22.3-36.8) Seconds Sodium (137-145) mmol/L Glucose (65-110) mg/dL POC Capillary Glucose 214 H (65-105) mg/dl Calcium (8.4-10.2) mg/dL Ferritin (11.1-264) ng/mL AST (17-59) U/L ALT (6-50) U/L Albumin (3.5-5.1) g/dL Diabetes panel 09/22/24 Range/Units 04:39 Sodium 136 L (137-145) mmol/L Potassium 4.1 (3.4-5.0) mmol/L Chloride 106 (98-107) mmol/L Carbon Dioxide 24 (22-30) mmol/L BUN 9 (9-20) mg/dL Creatinine 0.74 (0.7-1.3) mg/dL Glucose 248 H (65-110) mg/dL Calcium 8.2 L (8.4-10.2) mg/dL AST 95 H (17-59) U/L ALT 195 H (6-50) U/L Alkaline Phosphatase 50 (38-126) U/L Total Protein 6.8 (6.3-8.2) g/dL Albumin 3.4 L (3.5-5.1) g/dL Calcium panel 09/22/24 Range/Units 04:39 Calcium 8.2 L (8.4-10.2) mg/dL Albumin 3.4 L (3.5-5.1) g/dL Pituitary panel 09/22/24 Range/Units 04:39 Sodium 136 L (137-145) mmol/L Potassium 4.1 (3.4-5.0) mmol/L Chloride 106 (98-107) mmol/L Carbon Dioxide 24 (22-30) mmol/L BUN 9 (9-20) mg/dL Creatinine 0.74 (0.7-1.3) mg/dL Glucose 248 H (65-110) mg/dL Calcium 8.2 L (8.4-10.2) mg/dL Adrenal panel 09/22/24 Range/Units 04:39 Sodium 136 L (137-145) mmol/L Potassium 4.1 (3.4-5.0) mmol/L Chloride 106 (98-107) mmol/L Carbon Dioxide 24 (22-30) mmol/L BUN 9 (9-20) mg/dL Creatinine 0.74 (0.7-1.3) mg/dL Glucose 248 H (65-110) mg/dL Calcium 8.2 L (8.4-10.2) mg/dL Total Bilirubin 1.3 (0.2-1.3) mg/dL AST 95 H (17-59) U/L ALT 195 H (6-50) U/L Alkaline Phosphatase 50 (38-126) U/L Total Protein 6.8 (6.3-8.2) g/dL Albumin 3.4 L (3.5-5.1) g/dL All other labs normal. Imaging Additional studies: ITS Impressions Chest X-Ray 09/20/24 20:34 IMPRESSION: No focal infiltrate or effusion. Abdomen/Pelvis CT 09/20/24 23:03 IMPRESSION: Fatty infiltration of a markedly enlarged liver. Cholelithiasis. Findings caudal to the tail of the pancreas for which an early pseudocyst formation versus carcinoid is suspected. Nonobstructing stones within the bilateral kidneys. Chest CTA 09/21/24 15:12 IMPRESSION: 1. No pulmonary embolism. 2. No acute cardiopulmonary pathology. 3. Fat infiltration of the liver. 4. Cholelithiasis. 5. Left adrenal adenoma. No follow-up advised unless clinically warranted. MRCP 09/22/24 13:24 IMPRESSION: 1. Cholelithiasis without choledocholithiasis or biliary dilation. 2. Hepatomegaly with prominent diffuse hepatic steatosis. 3. 2.1 x 1.2 cm likely pseudocyst related to prior acute pancreatitis along the tail of the pancreas. 4. Very small sliding-type hiatal hernia.
[2024-09-22] MEDS: ATORVASTATIN 40 MG TABLET 80 MG PO (18:16)
[2024-09-22] MEDS: PIPERACILLN/TAZ 3.375GM/NS50ML 3.375 GM/50 ML BAG IVPB (20:34)
[2024-09-22] MEDS: INSULIN GLARGINE (*BKC) 100 UNITS/ML 30 UNITS SUB-Q (21:00)
[2024-09-22] MEDS: INSULIN ASPART (*BKC) 100 UNITS/ML SUB-Q (21:02)
[2024-09-23] VITALS (27 sets, daily range): BP systolic 123–205; BP diastolic 53–73; PULSE 76–110; RESP 20–30; TEMP 36.9–39.9; O2SAT 90–97
[2024-09-23] MEDS: PIPERACILLN/TAZ 3.375GM/NS50ML 3.375 GM/50 ML BAG IVPB (02:11)
--- NOTE | 2024-09-23 09:16 | PM.IMPN ---
Progress Note: A&P Assessment and Plan (1) Non-ST elevation IA (NSTEMI): Code(s): I21.4 - Non-ST elevation (NSTEMI) myocardial infarction Status: Acute Plan Patient is a 69-year-old male who presents emergency department this evening via EMS complaining of generalized weakness. NSTEMI Upon arrival to ED, patient was found have elevated troponin that is trending up, EKG shows sinus rhythm, no specific ST or T-wave changes, Pending echocardiogram Telemetry monitoring Aspirin 325 mg once and 81 mg daily p.o. Consult director of safety and security for evaluation treatment patent coronary arteries by cardiac catheterization Uncontrolled diabetes, New onset diabetes glucose 342 on arrival Hemoglobin A1c 10.6 Patient is on sliding scale Start Lantus 20 units q.h.s. lispro 6 units a.c., increase lantus to 30 qhs 09/22 Transaminitis, gallstone Total bilirubin 2.4, AST 487, ALT 402, CPK 319 CT abdomen showed gallstone, fatty liver 09/20 MRCP 1. Cholelithiasis without choledocholithiasis or biliary dilation. 2. Hepatomegaly with prominent diffuse hepatic steatosis. 3. 2.1 x 1.2 cm likely pseudocyst related to prior acute pancreatitis along the tail of the pancreas. 4. Very small sliding-type hiatal hernia. Consult GI and general surgeon for evaluation treatment Pending HIDA scan to evaluate for cystic duct occlusion. If the HIDA scan is negative, then we would likely recommend outpatient follow-up in our office with Dr. Saab sepsis low-grade temperature, tachycardia and lactic acidosis of 4. significant transaminitis and hyperbilirubinemia, chronic immunosuppressive therapy for psoriatic arthritis. lactic acid level, blood cultures negative of COVID flu and RSV PCR. 1 of the 2 blood culture grows Gram-negative bacilli Possible due to intra-abdominal infection Start Zosyn IV and vancomycin Repeat blood culture Acute encephalopathy Patient confused today CT head shows no acute intracranial hemorrhage of mass effect, the ventricle or enlarged MRI showed Normal for age brain. No acute intracranial process. Possible due to sepsis Start fluid resuscitation, vancomycin and Zosyn Subjective Date/time seen: 09/23/24 09:16 Interval history: I saw and exam patient in presents of patient's . Patient was confused, arousable with pain stimuli Patient denied headache, patient moving all extremities with pain stimuli Glucose is better controlled 1 of the 2 blood culture grows Gram-negative bacilli, Patient had a fever yesterday afternoon, 100.4, and patient had a fever 103.8 by noon time today Exam Narrative: GENERAL: Somnolent in no acute distress. Well-nourished. - EYES: EOMI. Anicteric. - HENT: Moist mucous membranes. - LUNGS: Clear to auscultation bilaterally, no wheezing, rhonchi, or rales. - CARDIOVASCULAR: Regular rate and rhythm. No murmur. No JVD. - ABDOMEN: Soft, non-tender and non-distended. No palpable masses. - EXTREMITIES: No edema. Peripheral pulses 2+. Non-tender. - NEUROLOGIC: No focal neurological deficits. CN II-XII grossly intact. - PSYCHIATRIC: Awake, confused not oriented x 3. Moving all extremities with pain stimuli. - SKIN: No rashes or lesions. Warm. - LYMPH: No cervical lymphadenopathy. Objective Data Vital Signs Vital Signs: Vital Signs - 24 hr 09/22/24 10:00 09/22/24 11:41 09/22/24 11:56 Temperature 99.3 F Pulse Rate 75 76 77 Pulse Rate [Right Radial] Respiratory Rate 20 Blood Pressure 131/49 L Pulse Oximetry 92 Oxygen Delivery 09/22/24 13:00 09/22/24 13:00 09/22/24 13:15 Temperature Pulse Rate 74 Pulse Rate [Right Radial] 72 75 Respiratory Rate 16 Blood Pressure 129/92 H Pulse Oximetry 92 Oxygen Delivery Room Air 09/22/24 13:15 09/22/24 13:30 09/22/24 13:30 Temperature Pulse Rate 75 74 Pulse Rate [Right Radial] 74 Respiratory Rate 16 16 Blood Pressure 139/60 140/49 L Pulse Oximetry 92 92 Oxygen Delivery Room Air Room Air 09/22/24 13:45 09/22/24 13:45 09/22/24 14:00 Temperature Pulse Rate 72 74 Pulse Rate [Right Radial] 76 Respiratory Rate 16 17 Blood Pressure 140/57 L 142/54 H Pulse Oximetry 92 94 Oxygen Delivery Room Air Room Air 09/22/24 14:00 09/22/24 14:15 09/22/24 14:15 Temperature Pulse Rate 75 Pulse Rate [Right Radial] 74 75 Respiratory Rate 18 Blood Pressure 135/54 L Pulse Oximetry 96 Oxygen Delivery Room Air 09/22/24 14:30 09/22/24 14:30 09/22/24 14:45 Temperature Pulse Rate 75 Pulse Rate [Right Radial] 75 75 Respiratory Rate 17 Blood Pressure 130/58 L Pulse Oximetry 94 Oxygen Delivery Room Air 09/22/24 14:45 09/22/24 15:00 09/22/24 15:00 Temperature Pulse Rate 75 75 Pulse Rate [Right Radial] 76 Respiratory Rate 16 18 Blood Pressure 133/58 L 137/58 L Pulse Oximetry 96 94 Oxygen Delivery Room Air Room Air 09/22/24 15:15 09/22/24 15:15 09/22/24 15:30 Temperature Pulse Rate 75 Pulse Rate [Right Radial] 75 75 Respiratory Rate 20 Blood Pressure 146/50 H Pulse Oximetry 94 Oxygen Delivery Room Air 09/22/24 15:30 09/22/24 15:43 09/22/24 16:00 Temperature Pulse Rate 75 80 Pulse Rate [Right Radial] 82 Respiratory Rate 18 Blood Pressure 127/69 Pulse Oximetry 95 Oxygen Delivery Room Air 09/22/24 16:00 09/22/24 16:43 09/22/24 17:43 Temperature 99.0 F Pulse Rate 79 Pulse Rate [Right Radial] 83 97 Respiratory Rate 24 H Blood Pressure 141/63 H Pulse Oximetry 97 Oxygen Delivery 09/22/24 18:00 09/22/24 19:50 09/22/24 20:00 Temperature 98.4 F Pulse Rate 80 80 90 Pulse Rate [Right Radial] Respiratory Rate 22 H Blood Pressure 156/55 H Pulse Oximetry 92 Oxygen Delivery 09/22/24 20:42 09/22/24 21:03 09/22/24 22:00 Temperature Pulse Rate 78 83 Pulse Rate [Right Radial] Respiratory Rate Blood Pressure Pulse Oximetry 93 Oxygen Delivery Room Air 09/23/24 00:00 09/23/24 00:13 09/23/24 02:00 Temperature 98.5 F Pulse Rate 84 87 81 Pulse Rate [Right Radial] Respiratory Rate 20 Blood Pressure 169/57 H Pulse Oximetry 93 Oxygen Delivery 09/23/24 03:28 09/23/24 04:00 09/23/24 06:00 Temperature 98.6 F Pulse Rate 78 78 76 Pulse Rate [Right Radial] Respiratory Rate 20 Blood Pressure 149/55 H Pulse Oximetry 93 Oxygen Delivery 09/23/24 07:55 Temperature 98.5 F Pulse Rate 83 Pulse Rate [Right Radial] Respiratory Rate 26 H Blood Pressure 163/73 H Pulse Oximetry 95 Oxygen Delivery Intake/Output Intake/Output: Intake & Output 09/20/24 09/21/24 09/22/24 09/23/24 23:59 23:59 23:59 23:59 Intake Total 1000 3080.9 1305.5 450 Output Total 344 233 7949 750 Balance 700 2430.9 105.5 -300 Meds/Results Medications: Active Medications Generic Name Dose Route Start Last Admin Trade Name Freq PRN Reason Stop Dose Admin Aspirin 81 mg 09/22/24 09:00 09/22/24 18:13 Aspirin 81 Mg Enteric Tablet PO 81 mg BID ELIJAH Administration Atorvastatin Calcium 80 mg 09/21/24 13:30 09/22/24 18:16 Atorvastatin 40 Mg Tablet PO 80 mg DAILY ELIJAH Administration Dextrose 12.5 gm 09/21/24 00:14 Dextrose 50% 25 Gm/50 Ml Syringe IV PUSH PRN PRN Hypoglycemia Protocol Glucagon 1 mg 09/21/24 00:14 Glucagon For Inj 1 Mg Vial IM PRN PRN Hypoglycemia Protocol Glucose 15 gm 09/21/24 00:14 Glucose Oral Gel 15 Gm Of Glucse In 37.5 Gm Tube PO PRN PRN Hypoglycemia Protocol Dextrose 1,000 mls @ 100 mls/hr 09/21/24 00:14 Dextrose 5% 1,000 Ml IVPB PRN PRN Hypoglycemia Protocol Piperacillin/Tazobactam/Dextrose 3.375 gm in 50 mls @ 100 mls/hr 09/22/24 20:00 09/23/24 02:41 Zosyn 3.375 Gm/Ns 50 Ml IVPB Infused Q6H [facility] Infusion Insulin Aspart 4 - 8 units 09/21/24 08:00 09/22/24 18:13 Insulin Aspart (*Bkc) 100 Units/Ml SUB-Q Not Given TIDWM [facility] Protocol Insulin Aspart 2 - 4 units 09/21/24 21:00 09/22/24 21:02 Insulin Aspart (*Bkc) 100 Units/Ml SUB-Q 2 units HS [facility] Administration Protocol Insulin Aspart 6 units 09/21/24 12:00 09/22/24 18:13 Insulin Aspart (*Bkc) 100 Units/Ml 0.05 units/kg (6 units) 6 units SUB-Q Administration TIDWM [facility] Insulin Glargine 30 units 09/22/24 21:00 09/22/24 21:00 Insulin Glargine (*Bkc) 100 Units/Ml SUB-Q 30 units HS ELIJAH Administration Lisinopril 2.5 mg 09/23/24 09:00 Lisinopril 2.5 Mg Tablet PO QAM ELIJAH Metoprolol Tartrate 12.5 mg 09/22/24 09:00 09/22/24 20:42 Metoprolol Tartrate 12.5 Mg Tablet PO 12.5 mg Q12HR ELIJAH Administration Perflutren Lipid Microsphere 0 ml 09/21/24 09:33 Perflutren Lipid Microspheres 1.5 Ml Vial Diluted To 10 Ml Total Volume IV PUSH 09/24/24 09:33 ONCE PRN adequate visualization Protocol Radiology Results: ITS Impressions Chest X-Ray 09/20/24 20:34 IMPRESSION: No focal infiltrate or effusion. Abdomen/Pelvis CT 09/20/24 23:03 IMPRESSION: Fatty infiltration of a markedly enlarged liver. Cholelithiasis. Findings caudal to the tail of the pancreas for which an early pseudocyst formation versus carcinoid is suspected. Nonobstructing stones within the bilateral kidneys. Chest CTA 09/21/24 15:12 IMPRESSION: 1. No pulmonary embolism. 2. No acute cardiopulmonary pathology. 3. Fat infiltration of the liver. 4. Cholelithiasis. 5. Left adrenal adenoma. No follow-up advised unless clinically warranted. MRCP 09/22/24 13:24 IMPRESSION: 1. Cholelithiasis without choledocholithiasis or biliary dilation. 2. Hepatomegaly with prominent diffuse hepatic steatosis. 3. 2.1 x 1.2 cm likely pseudocyst related to prior acute pancreatitis along the tail of the pancreas. 4. Very small sliding-type hiatal hernia. Labs Labs: Laboratory Results - last 24 hr 09/22/24 09/22/24 09/22/24 04:39 11:28 15:49 Sodium 136 L Potassium 4.1 Chloride 106 Carbon Dioxide 24 Anion Gap 6 BUN 9 Creatinine 0.74 Estim Creat Clear Calc 104 Estimated GFR > 60 Glucose 248 H POC Capillary Glucose 214 H 194 H Calcium 8.2 L Total Bilirubin 1.3 AST 95 H ALT 195 H Alkaline Phosphatase 50 Total Protein 6.8 Albumin 3.4 L 09/22/24 09/23/24 20:10 07:31 Sodium Potassium Chloride Carbon Dioxide Anion Gap BUN Creatinine Estim Creat Clear Calc Estimated GFR Glucose POC Capillary Glucose 233 H 189 H Calcium Total Bilirubin AST ALT Alkaline Phosphatase Total Protein Albumin
[2024-09-23 09:37] LABS: Alanine Aminotransferase 292 U/L (6-50); Albumin Level 3.7 g/dL (3.5-5.1); Alkaline Phosphatase 83 U/L (38-126); Anion Gap 6 mmol/L (4-12); Aspartate Amino Transferase 506 U/L (17-59); Bilirubin,Total 3.1 mg/dL (0.2-1.3); Blood Urea Nitrogen 9 mg/dL (9-20); Calcium 8.3 mg/dL (8.4-10.2); Carbon Dioxide 27 mmol/L (22-30); Chloride 102 mmol/L (98-107); Estimated CRCL calculation 83 ml/min; Estimated Glomerular Filt Rate > 60; Glucose 211 mg/dL (65-110); Potassium 3.7 mmol/L (3.4-5.0); Sodium 135 mmol/L (137-145); Total Protein 7.6 g/dL (6.3-8.2)
--- NOTE | 2024-09-23 09:51 | P.PNGS_ITS ---
Progress Note: A&P Assessment and Plan (1) Gram-negative bacteremia: Code(s): R78.81 - Bacteremia Status: Acute Assessment and Plan: 2 blood cultures from 4:00 a.m. on 09/21/2024 were positive for Gram-negative rods. Further sensitivities and identification pending. Started on Zosyn antibiotics yesterday. Etiology unclear but with abnormal LFTs, gallstones it seems likely this is from acute on chronic cholecystitis. HIDA scan is in process. If positive, plan to proceed with cholecystostomy tube placement with ultrasound guidance later today. (2) Transaminitis: Code(s): R74.01 - Elevation of levels of liver transaminase levels Status: Acute Assessment and Plan: LFTs higher today, this is only bilirubin, AST and ALT. Alkaline phosphatase has remained normal. (3) Cholelithiasis: Qualifiers: Cholelithiasis location: gallbladder Cholecystitis presence: with cholecystitis Cholecystitis acuity: acute and chronic Biliary obstruction: with biliary obstruction Qualified Code(s): K80.13 - Calculus of gallbladder with acute and chronic cholecystitis with obstruction Code(s): K80.20 - Calculus of gallbladder without cholecystitis without obstruction Status: Acute Assessment and Plan: Noted on CT scan abdomen pelvis as well as MRCP. Gallbladder itself looked normal on MRCP. There were no common bile duct stones on MRCP. Common bile duct was not dilated either. (4) Pancreatic pseudocyst: Code(s): K86.3 - Pseudocyst of pancreas Status: Acute Assessment and Plan: Patient noted to have acute pancreatitis 10 months ago but left the emergency room instead of being admitted. He was also noted to have gallstones at that time. MRCP suggest pancreatic pseudocyst, small, in the tail of the pancreas. No evidence of abscess or pancreatic necrosis on MRI or CT scan. Unlikely to be playing a role in his bacteremia and transaminitis. (5) Coronary artery disease: Qualifiers: Coronary Disease-Associated Artery/Lesion type: [place] artery [place] vs. transplanted heart: [place] heart Associated angina: without angina Qualified Code(s): I25.10 - Atherosclerotic heart disease of [place] coronary artery without angina pectoris Code(s): I25.10 - Atherosclerotic heart disease of [place] coronary artery without angina pectoris Status: Acute Assessment and Plan: Multi-vessel non occlusive coronary artery disease. Plan is to place on anti- platelet agent clopidogrel for 1 year. Please hold off for now. Aspirin can continue. 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 He has been getting weaker. Has been non compliant in the past. Hopefully, treatment of medical illnesses found at this admission will improve this. Mental illness is also certainly a possibility. Subjective Subjective Date/Time Seen: 09/23/24 09:51 Patient reports: no new complaints (Patient very somnolent this morning, denies any abdominal pain or pain elsewhere.) and afebrile Interval history: 1-2 word answers given after patient aroused enough to know he is being spoken to. Then goes right back to sleep. Review of Systems Review of Systems: ROS unobtainable: Yes unobtainable due to medical condition Exam Const: General: comfortable, lethargic, tired appearing and obese Nutritional Appearance: obese Orientation/consciousness: lethargic Limitations: altered mental status GI: Inspection: normal to inspection, non-distended, obesity, no scars and visible herniation (Small umbilical) GI Palp: Yes Firmness to palpation present (GI), Yes Tenderness to palpation present (GI) (Right upper quadrant) and No Palpable mass present Neuro: Cranial nerves: Yes facial symmetry and Yes Midline tongue present Cognition (Neuro): abnormal cognition Gait exam (Neuro): Unable to assess gait Psych: Appearance: disheveled Mental Status: other (Somnolent, barely verbal, difficult to arouse.) Objective Data Vital Signs Vital Signs: Vital Signs - 24 hr 09/22/24 10:00 09/22/24 11:41 09/22/24 11:56 Temperature 37.4 C Pulse Rate 75 76 77 Pulse Rate [Right Radial] Respiratory Rate 20 Blood Pressure 131/49 L Pulse Oximetry 92 Oxygen Delivery 09/22/24 13:00 09/22/24 13:00 09/22/24 13:15 Temperature Pulse Rate 74 Pulse Rate [Right Radial] 72 75 Respiratory Rate 16 Blood Pressure 129/92 H Pulse Oximetry 92 Oxygen Delivery Room Air 09/22/24 13:15 09/22/24 13:30 09/22/24 13:30 Temperature Pulse Rate 75 74 Pulse Rate [Right Radial] 74 Respiratory Rate 16 16 Blood Pressure 139/60 140/49 L Pulse Oximetry 92 92 Oxygen Delivery Room Air Room Air 09/22/24 13:45 09/22/24 13:45 09/22/24 14:00 Temperature Pulse Rate 72 74 Pulse Rate [Right Radial] 76 Respiratory Rate 16 17 Blood Pressure 140/57 L 142/54 H Pulse Oximetry 92 94 Oxygen Delivery Room Air Room Air 09/22/24 14:00 09/22/24 14:15 09/22/24 14:15 Temperature Pulse Rate 75 Pulse Rate [Right Radial] 74 75 Respiratory Rate 18 Blood Pressure 135/54 L Pulse Oximetry 96 Oxygen Delivery Room Air 09/22/24 14:30 09/22/24 14:30 09/22/24 14:45 Temperature Pulse Rate 75 Pulse Rate [Right Radial] 75 75 Respiratory Rate 17 Blood Pressure 130/58 L Pulse Oximetry 94 Oxygen Delivery Room Air 09/22/24 14:45 09/22/24 15:00 09/22/24 15:00 Temperature Pulse Rate 75 75 Pulse Rate [Right Radial] 76 Respiratory Rate 16 18 Blood Pressure 133/58 L 137/58 L Pulse Oximetry 96 94 Oxygen Delivery Room Air Room Air 09/22/24 15:15 09/22/24 15:15 09/22/24 15:30 Temperature Pulse Rate 75 Pulse Rate [Right Radial] 75 75 Respiratory Rate 20 Blood Pressure 146/50 H Pulse Oximetry 94 Oxygen Delivery Room Air 09/22/24 15:30 09/22/24 15:43 09/22/24 16:00 Temperature Pulse Rate 75 80 Pulse Rate [Right Radial] 82 Respiratory Rate 18 Blood Pressure 127/69 Pulse Oximetry 95 Oxygen Delivery Room Air 09/22/24 16:00 09/22/24 16:43 09/22/24 17:43 Temperature 37.2 C Pulse Rate 79 Pulse Rate [Right Radial] 83 97 Respiratory Rate 24 H Blood Pressure 141/63 H Pulse Oximetry 97 Oxygen Delivery 09/22/24 18:00 09/22/24 19:50 09/22/24 20:00 Temperature 36.9 C Pulse Rate 80 80 90 Pulse Rate [Right Radial] Respiratory Rate 22 H Blood Pressure 156/55 H Pulse Oximetry 92 Oxygen Delivery 09/22/24 20:42 09/22/24 21:03 09/22/24 22:00 Temperature Pulse Rate 78 83 Pulse Rate [Right Radial] Respiratory Rate Blood Pressure Pulse Oximetry 93 Oxygen Delivery Room Air 09/23/24 00:00 09/23/24 00:13 09/23/24 02:00 Temperature 36.9 C Pulse Rate 84 87 81 Pulse Rate [Right Radial] Respiratory Rate 20 Blood Pressure 169/57 H Pulse Oximetry 93 Oxygen Delivery 09/23/24 03:28 09/23/24 04:00 09/23/24 06:00 Temperature 37.0 C Pulse Rate 78 78 76 Pulse Rate [Right Radial] Respiratory Rate 20 Blood Pressure 149/55 H Pulse Oximetry 93 Oxygen Delivery 09/23/24 07:55 Temperature 36.9 C Pulse Rate 83 Pulse Rate [Right Radial] Respiratory Rate 26 H Blood Pressure 163/73 H Pulse Oximetry 95 Oxygen Delivery Intake/Output Intake/Output: Intake & Output 09/20/24 09/21/24 09/22/24 09/23/24 23:59 23:59 23:59 23:59 Intake Total 1000 3080.9 1305.5 450 Output Total 965 862 3027 750 Balance 700 2430.9 105.5 -300 Meds/Results Medications: Active Medications Generic Name Dose Route Start Last Admin Trade Name Freq PRN Reason Stop Dose Admin Aspirin 81 mg 09/22/24 09:00 09/22/24 18:13 Aspirin 81 Mg Enteric Tablet PO 81 mg BID ELIJAH Administration Atorvastatin Calcium 80 mg 09/21/24 13:30 09/22/24 18:16 Atorvastatin 40 Mg Tablet PO 80 mg DAILY ELIJAH Administration Dextrose 12.5 gm 09/21/24 00:14 Dextrose 50% 25 Gm/50 Ml Syringe IV PUSH PRN PRN Hypoglycemia Protocol Glucagon 1 mg 09/21/24 00:14 Glucagon For Inj 1 Mg Vial IM PRN PRN Hypoglycemia Protocol Glucose 15 gm 09/21/24 00:14 Glucose Oral Gel 15 Gm Of Glucse In 37.5 Gm Tube PO PRN PRN Hypoglycemia Protocol Dextrose 1,000 mls @ 100 mls/hr 09/21/24 00:14 Dextrose 5% 1,000 Ml IVPB PRN PRN Hypoglycemia Protocol Piperacillin Sod/Tazobactam 50 mls @ 100 mls/hr 09/23/24 10:00 Sod 3.375 gm/ Sodium Chloride IVPB Q6H ELIJAH Insulin Aspart 4 - 8 units 09/21/24 08:00 09/23/24 09:44 Insulin Aspart (*Bkc) 100 Units/Ml SUB-Q Not Given TIDWM ELIJAH Protocol Insulin Aspart 2 - 4 units 09/21/24 21:00 09/22/24 21:02 Insulin Aspart (*Bkc) 100 Units/Ml SUB-Q 2 units HS ELIJAH Administration Protocol Insulin Aspart 6 units 09/21/24 12:00 09/23/24 09:44 Insulin Aspart (*Bkc) 100 Units/Ml 0.05 units/kg (6 units) Not Given SUB-Q TIDWM ELIJAH Insulin Glargine 30 units 09/22/24 21:00 09/22/24 21:00 Insulin Glargine (*Bkc) 100 Units/Ml SUB-Q 30 units HS ELIJAH Administration Lisinopril 2.5 mg 09/23/24 09:00 Lisinopril 2.5 Mg Tablet PO QAM ELIJAH Metoprolol Tartrate 12.5 mg 09/22/24 09:00 09/22/24 20:42 Metoprolol Tartrate 12.5 Mg Tablet PO 12.5 mg Q12HR ELIJAH Administration Perflutren Lipid Microsphere 0 ml 09/21/24 09:33 Perflutren Lipid Microspheres 1.5 Ml Vial Diluted To 10 Ml Total Volume IV PUSH 09/24/24 09:33 ONCE PRN adequate visualization Protocol Radiology Results: ITS Impressions Chest X-Ray 09/20/24 20:34 IMPRESSION: No focal infiltrate or effusion. Abdomen/Pelvis CT 09/20/24 23:03 IMPRESSION: Fatty infiltration of a markedly enlarged liver. Cholelithiasis. Findings caudal to the tail of the pancreas for which an early pseudocyst formation versus carcinoid is suspected. Nonobstructing stones within the bilateral kidneys. Chest CTA 09/21/24 15:12 IMPRESSION: 1. No pulmonary embolism. 2. No acute cardiopulmonary pathology. 3. Fat infiltration of the liver. 4. Cholelithiasis. 5. Left adrenal adenoma. No follow-up advised unless clinically warranted. MRCP 09/22/24 13:24 IMPRESSION: 1. Cholelithiasis without choledocholithiasis or biliary dilation. 2. Hepatomegaly with prominent diffuse hepatic steatosis. 3. 2.1 x 1.2 cm likely pseudocyst related to prior acute pancreatitis along the tail of the pancreas. 4. Very small sliding-type hiatal hernia. Labs Labs: Laboratory Results - last 24 hr 09/22/24 09/22/24 09/22/24 04:39 11:28 15:49 Sodium 136 L Potassium 4.1 Chloride 106 Carbon Dioxide 24 Anion Gap 6 BUN 9 Creatinine 0.74 Estim Creat Clear Calc 104 Estimated GFR > 60 Glucose 248 H POC Capillary Glucose 214 H 194 H Calcium 8.2 L Total Bilirubin 1.3 AST 95 H ALT 195 H Alkaline Phosphatase 50 Total Protein 6.8 Albumin 3.4 L 09/22/24 09/23/24 09/23/24 20:10 07:31 09:09 Sodium 135 L Potassium 3.7 Chloride 102 Carbon Dioxide 27 Anion Gap 6 BUN 9 Creatinine 0.96 Estim Creat Clear Calc 83 Estimated GFR > 60 Glucose 211 H POC Capillary Glucose 233 H 189 H Calcium 8.3 L Total Bilirubin 3.1 H AST 506 H ALT 292 H Alkaline Phosphatase 83 Total Protein 7.6 Albumin 3.7
[2024-09-23] MEDS: PIPERACILLIN/TAZOBACTAM SOD 3.375 GM in SODIUM CHLORIDE 0.9% IV 50 ML 100 ML IVPB ×3 (10:11→21:19)
[2024-09-23 10:43] LABS: Hematocrit 43.1 % (42.0-52.0); Hemoglobin 13.9 g/dL (14.0-18.0); Immature Granulocyte Percent A 0.8 % (0-0.5); Immature Platelet Fraction Pct 4.2 % (0.9-11.2); Lymphocytes Absolute Auto 0.76 K/mm3 (0.9-3.2); Mean Corpuscular HGB Conc 32.3 g/dl (32-36); Mean Corpuscular Hemoglobin 30.0 pg (26-34); Mean Corpuscular Volume 93.1 fl (80-100); Nucleated Red Blood Cells Absolute Auto 0.000 K/mm3 (0.0-0.012); Nucleated Red Blood Cells Perc 0.0 % (0.0-0.2); Platelet Count Result 95 k/mm3 (150-375); Red Blood Count 4.63 M/mm3 (4.6-6.20); White Blood Count 3.9 K/mm3 (4.5-10.0)
[2024-09-23 10:44] LABS: Alanine Aminotransferase 300 U/L (6-50); Albumin Level 3.6 g/dL (3.5-5.1); Alkaline Phosphatase 93 U/L (38-126); Anion Gap 9 mmol/L (4-12); Aspartate Amino Transferase 534 U/L (17-59); Bilirubin,Total 3.2 mg/dL (0.2-1.3); Blood Urea Nitrogen 9 mg/dL (9-20); Calcium 8.4 mg/dL (8.4-10.2); Carbon Dioxide 26 mmol/L (22-30); Chloride 101 mmol/L (98-107); Estimated CRCL calculation 86 ml/min; Estimated Glomerular Filt Rate > 60; Glucose 205 mg/dL (65-110); Potassium 3.9 mmol/L (3.4-5.0); Sodium 136 mmol/L (137-145); Total Protein 6.9 g/dL (6.3-8.2)
[2024-09-23 10:58] LABS: Alveolar/Arterial O2 Gradient 58.6 mmHg; Fractional Inspired Oxygen 21 %; HCO3 ABG 21.3 mEq/l (22.0-26.0); Oxygen Content ABG 18.8 %vol (16.0-22.0); Oxygen Saturation ABG 88.2 % (95.0-100.0); PCO2 ABG 32.7 mmHg (35.0-45.0); PO2 ABG 52.0 mmHg (80.0-100.0); PO2 FiO2 Ratio Arterial Blood 2.48 %
[2024-09-23 11:00] LABS: Site Drawn LEFT RADIAL
[2024-09-23] MEDS: SODIUM CHLORIDE 0.9% IV 1,000 ML 100 ML IV CONT (12:31)
[2024-09-23] MEDS: ACETAMINOPHEN 650 MG SUPPOSITORY RECTAL (12:31)
[2024-09-23] MEDS: INSULIN ASPART (*BKC) 100 UNITS/ML SUB-Q ×2 (12:55→16:29)
[2024-09-23] MEDS: VANCOMYCIN 1,250 MG/NS 250 ML 1,250 MG/250 ML BAG 166.67 MG IVPB ×2 (13:50→15:48)
--- NOTE | 2024-09-23 15:12 | PC.NURSE ---
0730- 0900-pt in [place] dept for procedure
--- NOTE | 2024-09-23 15:42 | PC.NURSE ---
1045- 1200- to CT dept , and MRI- returned to room- Temp elevated- BP elevated -MD called for orders;
--- NOTE | 2024-09-23 17:59 | PC.NURSE ---
1200- Dr. Mcgrath informed am medications not given due to pt decreased loc
[2024-09-23] MEDS: METOPROLOL TARTRATE 12.5 MG TABLET PO (21:14)
[2024-09-23] MEDS: ASPIRIN 81 MG ENTERIC TABLET PO (21:15)
[2024-09-23] MEDS: INSULIN GLARGINE (*BKC) 100 UNITS/ML 30 UNITS SUB-Q (21:17)
[2024-09-24] VITALS (18 sets, daily range): BP systolic 132–167; BP diastolic 54–71; PULSE 72–95; RESP 18–22; TEMP 36.6–38; O2SAT 93–95
[2024-09-24] MEDS: SODIUM CHLORIDE 0.9% IV 1,000 ML 100 ML IV CONT ×2 (02:05→15:30)
[2024-09-24] MEDS: VANCOMYCIN 1,500 MG/NS 500 ML 1,500 MG/500 ML BAG 250 MG IVPB ×2 (02:06→20:19)
[2024-09-24] MEDS: PIPERACILLIN/TAZOBACTAM SOD 3.375 GM in SODIUM CHLORIDE 0.9% IV 50 ML 100 ML IVPB ×4 (04:31→23:26)
[2024-09-24 04:36] LABS: Hematocrit 42.5 % (42.0-52.0); Hemoglobin 14.0 g/dL (14.0-18.0); Immature Granulocyte Percent A 0.7 % (0-0.5); Immature Platelet Fraction Pct 2.7 % (0.9-11.2); Lymphocytes Absolute Auto 0.81 K/mm3 (0.9-3.2); Mean Corpuscular HGB Conc 32.9 g/dl (32-36); Mean Corpuscular Hemoglobin 30.7 pg (26-34); Mean Corpuscular Volume 93.2 fl (80-100); Nucleated Red Blood Cells Absolute Auto 0.000 K/mm3 (0.0-0.012); Nucleated Red Blood Cells Perc 0.0 % (0.0-0.2); Platelet Count Result 111 k/mm3 (150-375); Red Blood Count 4.56 M/mm3 (4.6-6.20); White Blood Count 5.5 K/mm3 (4.5-10.0)
[2024-09-24 05:12] LABS: Alanine Aminotransferase 336 U/L (6-50); Albumin Level 3.5 g/dL (3.5-5.1); Alkaline Phosphatase 87 U/L (38-126); Anion Gap 9 mmol/L (4-12); Aspartate Amino Transferase 462 U/L (17-59); Bilirubin,Total 5.1 mg/dL (0.2-1.3); Blood Urea Nitrogen 10 mg/dL (9-20); Calcium 8.3 mg/dL (8.4-10.2); Carbon Dioxide 26 mmol/L (22-30); Chloride 103 mmol/L (98-107); Estimated CRCL calculation 74 ml/min; Estimated Glomerular Filt Rate > 60; Glucose 146 mg/dL (65-110); Potassium 3.9 mmol/L (3.4-5.0); Sodium 138 mmol/L (137-145); Total Protein 7.4 g/dL (6.3-8.2)
--- NOTE | 2024-09-24 07:44 | PM.PNGS ---
Progress Note: A&P Assessment and Plan (1) Transaminitis: Code(s): R74.01 - Elevation of levels of liver transaminase levels Status: Acute Assessment and Plan: unknown etiology, HIDA reviewed, exam cont to be largely benign (2) Gram-negative bacteremia: Code(s): R78.81 - Bacteremia Status: Acute Assessment and Plan: unknown source, cont workup and IV abx at this point Subjective Subjective Date/Time Seen: 09/24/24 07:44 Interval history: no acute issues, still quite lethargic, denies abd pain Review of Systems Review of Systems: All systems reviewed & are unremarkable except as noted in HPI and below Exam Const: General: cooperative, comfortable, no acute distress, lethargic and tired appearing Resp: Auscultation: diminished lung sounds Cardio: Rate: regular rate Rhythm: regular rhythm GI: Inspection: normal to inspection and distended GI Palp: No abdominal tenderness, Yes Soft to palpation, No Guarding due to palpation present (GI) and No Rigid due to palpation Objective Data Vital Signs Vital Signs: Vital Signs - 24 hr 09/23/24 07:55 09/23/24 10:30 09/23/24 10:30 Temperature 36.9 C 37.3 C Pulse Rate 83 101 H Respiratory Rate 26 H 20 Blood Pressure 163/73 H 198/71 H Pulse Oximetry 95 90 90 Oxygen Delivery Room Air Oxygen Flow Rate 09/23/24 10:40 09/23/24 11:25 09/23/24 12:23 Temperature 36.9 C 39.9 C H Pulse Rate 110 H 108 H Respiratory Rate 30 H 30 H 26 H Blood Pressure 205/71 H 191/54 H Pulse Oximetry 96 94 Oxygen Delivery Oxygen Flow Rate 09/23/24 12:23 09/23/24 12:30 09/23/24 12:30 Temperature Pulse Rate 102 H Respiratory Rate Blood Pressure 193/72 H Pulse Oximetry 97 Oxygen Delivery Nasal Cannula Oxygen Flow Rate 2 09/23/24 12:31 09/23/24 13:30 09/23/24 13:39 Temperature 39.9 C H 39.4 C H 39.7 C H Pulse Rate Respiratory Rate Blood Pressure Pulse Oximetry Oxygen Delivery Oxygen Flow Rate 09/23/24 14:00 09/23/24 14:00 09/23/24 14:35 Temperature 39.0 C H Pulse Rate 102 H 94 Respiratory Rate 24 H Blood Pressure 147/57 H Pulse Oximetry 97 Oxygen Delivery Oxygen Flow Rate 09/23/24 15:34 09/23/24 16:00 09/23/24 16:00 Temperature 38.3 C H Pulse Rate 102 H 95 Respiratory Rate 22 H Blood Pressure 123/70 Pulse Oximetry 92 92 Oxygen Delivery Nasal Cannula Oxygen Flow Rate 2 09/23/24 17:30 09/23/24 18:00 09/23/24 18:51 Temperature 38.1 C H 37.4 C Pulse Rate 87 Respiratory Rate Blood Pressure Pulse Oximetry Oxygen Delivery Oxygen Flow Rate 09/23/24 19:30 09/23/24 20:00 09/23/24 20:00 Temperature 37.1 C Pulse Rate 80 87 Respiratory Rate 22 H Blood Pressure 130/53 L Pulse Oximetry 93 Oxygen Delivery Room Air Oxygen Flow Rate 09/23/24 21:14 09/23/24 22:00 09/24/24 00:00 Temperature Pulse Rate 84 86 Respiratory Rate Blood Pressure Pulse Oximetry Oxygen Delivery Room Air Oxygen Flow Rate 09/24/24 00:00 09/24/24 00:12 09/24/24 02:00 Temperature 37.5 C Pulse Rate 85 83 80 Respiratory Rate 22 H Blood Pressure 159/62 H Pulse Oximetry 94 Oxygen Delivery Oxygen Flow Rate 09/24/24 04:00 09/24/24 04:00 09/24/24 04:00 Temperature 38.0 C H Pulse Rate 95 91 Respiratory Rate 18 Blood Pressure 148/71 H Pulse Oximetry 94 Oxygen Delivery Room Air Oxygen Flow Rate 09/24/24 06:00 09/24/24 07:00 Temperature 37.6 C Pulse Rate 87 Respiratory Rate Blood Pressure Pulse Oximetry Oxygen Delivery Oxygen Flow Rate Intake/Output Intake/Output: Intake & Output 09/21/24 09/22/24 09/23/24 09/24/24 23:59 23:59 23:59 23:59 Intake Total 3080.9 1305.5 2100 550 Output Total 650 1200 1450 1000 Balance 2430.9 105.5 650 -450 Meds/Results Medications: Active Medications Generic Name Dose Route Start Last Admin Trade Name Freq PRN Reason Stop Dose Admin Acetaminophen 650 mg 09/23/24 12:21 09/23/24 12:31 Acetaminophen 650 Mg Suppository RECTAL 650 mg Q6H PRN Administration Mild Pain (1-3) or Fever Aspirin 81 mg 09/22/24 09:00 09/23/24 21:15 Aspirin 81 Mg Enteric Tablet PO 81 mg BID ELIJAH Administration Atorvastatin Calcium 80 mg 09/21/24 13:30 09/23/24 17:57 Atorvastatin 40 Mg Tablet PO Not Given DAILY ELIJAH Dextrose 12.5 gm 09/21/24 00:14 Dextrose 50% 25 Gm/50 Ml Syringe IV PUSH PRN PRN Hypoglycemia Protocol Glucagon 1 mg 09/21/24 00:14 Glucagon For Inj 1 Mg Vial IM PRN PRN Hypoglycemia Protocol Glucose 15 gm 09/21/24 00:14 Glucose Oral Gel 15 Gm Of Glucse In 37.5 Gm Tube PO PRN PRN Hypoglycemia Protocol Hydralazine HCl 10 mg 09/23/24 13:32 Hydralazine Hcl 20 Mg/Ml Vial IV PUSH Q6H PRN Blood Pressure - High Dextrose 1,000 mls @ 100 mls/hr 09/21/24 00:14 Dextrose 5% 1,000 Ml IVPB PRN PRN Hypoglycemia Protocol Piperacillin Sod/Tazobactam 50 mls @ 100 mls/hr 09/23/24 10:00 09/24/24 05:01 Sod 3.375 gm/ Sodium Chloride IVPB Infused Q6H ELIJAH Infusion Sodium Chloride 1,000 mls @ 100 mls/hr 09/23/24 12:25 09/24/24 02:05 Normal Saline Iv IV CONT 100 mls/hr .Q10H ELIJAH Administration Vancomycin HCl 1,500 mg in 500 mls @ 250 mls/hr 09/24/24 20:00 Vancomycin 1,500 Mg/Ns 500 Ml IVPB Q18H [facility] Insulin Aspart 4 - 8 units 09/21/24 08:00 09/23/24 16:29 Insulin Aspart (*Bkc) 100 Units/Ml SUB-Q 4 units TIDWM ELIJAH Administration Protocol Insulin Aspart 2 - 4 units 09/21/24 21:00 09/23/24 21:17 Insulin Aspart (*Bkc) 100 Units/Ml SUB-Q Not Given HS [facility] Protocol Insulin Aspart 6 units 09/21/24 12:00 09/23/24 16:29 Insulin Aspart (*Bkc) 100 Units/Ml 0.05 units/kg (6 units) Not Given SUB-Q TIDWM [facility] Insulin Glargine 30 units 09/22/24 21:00 09/23/24 21:17 Insulin Glargine (*Bkc) 100 Units/Ml SUB-Q 30 units HS ELIJAH Administration Lisinopril 2.5 mg 09/23/24 09:00 09/23/24 17:57 Lisinopril 2.5 Mg Tablet PO Not Given QAM ELIJAH Metoprolol Tartrate 12.5 mg 09/22/24 09:00 09/23/24 21:14 Metoprolol Tartrate 12.5 Mg Tablet PO 12.5 mg Q12HR ELIJAH Administration Perflutren Lipid Microsphere 0 ml 09/21/24 09:33 Perflutren Lipid Microspheres 1.5 Ml Vial Diluted To 10 Ml Total Volume IV PUSH 09/24/24 09:33 ONCE PRN adequate visualization Protocol Radiology Results: ITS Impressions Chest X-Ray 09/20/24 20:34 IMPRESSION: No focal infiltrate or effusion. Abdomen/Pelvis CT 09/20/24 23:03 IMPRESSION: Fatty infiltration of a markedly enlarged liver. Cholelithiasis. Findings caudal to the tail of the pancreas for which an early pseudocyst formation versus carcinoid is suspected. Nonobstructing stones within the bilateral kidneys. Chest CTA 09/21/24 15:12 IMPRESSION: 1. No pulmonary embolism. 2. No acute cardiopulmonary pathology. 3. Fat infiltration of the liver. 4. Cholelithiasis. 5. Left adrenal adenoma. No follow-up advised unless clinically warranted. MRCP 09/22/24 13:24 IMPRESSION: 1. Cholelithiasis without choledocholithiasis or biliary dilation. 2. Hepatomegaly with prominent diffuse hepatic steatosis. 3. 2.1 x 1.2 cm likely pseudocyst related to prior acute pancreatitis along the tail of the pancreas. 4. Very small sliding-type hiatal hernia. Head CT 09/23/24 11:27 Impression: No acute intracranial hemorrhage or suspicious mass effect. Brain MRI 09/23/24 12:08 IMPRESSION: 1. Normal for age brain. No acute intracranial process. Hepatobiliary Scan Nuclear Medicine 09/23/24 13:38 IMPRESSION: 1. Severe hepatocellular dysfunction with no excretion of gallbladder activity rendering assessment for cystic duct obstruction/acute cholecystitis nondiagnostic. Labs Labs: Laboratory Results - last 24 hr 09/23/24 09/23/24 09/23/24 07:31 09:05 09:09 WBC 3.9 L RBC 4.63 Hgb 13.9 L Hct 43.1 MCV 93.1 MCH 30.0 MCHC 32.3 RDW 13.0 Plt Count 95 L MPV 10.4 Immature Gran % (Auto) 0.8 H Neut % (Auto) 68.6 Lymph % (Auto) 19.7 [place] % (Auto) 9.1 H Eos % (Auto) 1.3 Baso % (Auto) 0.5 Lymph # (Auto) 0.76 L [place] # (Auto) 0.4 Eos # (Auto) 0.1 Baso # (Auto) 0.0 Abs Immat Gran (auto) 0.03 Absolute Neuts (auto) 2.7 Absolute Nucleated RBC 0.000 Nucleated RBC % 0.0 % Immature Plt Fraction 4.2 Puncture Site ABG pH ABG pCO2 ABG pO2 ABG PO2/FiO2 Ratio ABG HCO3 ABG O2 Saturation ABG O2 Content ABG Base Excess A-a Gradient Oxyhemoglobin Total Hemoglobin O2 Delivery Device O2 Liters/Min FiO2 Sodium 135 L Potassium Chloride Carbon Dioxide Anion Gap BUN Creatinine Estim Creat Clear Calc Estimated GFR Glucose POC Capillary Glucose 189 H Calcium Total Bilirubin AST ALT Alkaline Phosphatase Total Protein Albumin 09/23/24 09/23/24 09/23/24 09:09 09:09 09:09 WBC RBC Hgb Hct MCV MCH MCHC RDW Plt Count MPV Immature Gran % (Auto) Neut % (Auto) Lymph % (Auto) [place] % (Auto) Eos % (Auto) Baso % (Auto) Lymph # (Auto) [place] # (Auto) Eos # (Auto) Baso # (Auto) Abs Immat Gran (auto) Absolute Neuts (auto) Absolute Nucleated RBC Nucleated RBC % % Immature Plt Fraction Puncture Site ABG pH ABG pCO2 ABG pO2 ABG PO2/FiO2 Ratio ABG HCO3 ABG O2 Saturation ABG O2 Content ABG Base Excess A-a Gradient Oxyhemoglobin Total Hemoglobin O2 Delivery Device O2 Liters/Min FiO2 Sodium 136 L Potassium 3.7 3.9 Chloride 102 101 Carbon Dioxide 27 Anion Gap BUN Creatinine Estim Creat Clear Calc Estimated GFR Glucose POC Capillary Glucose Calcium Total Bilirubin AST ALT Alkaline Phosphatase Total Protein Albumin 09/23/24 09/23/24 09/23/24 09:09 09:09 09:09 WBC RBC Hgb Hct MCV MCH MCHC RDW Plt Count MPV Immature Gran % (Auto) Neut % (Auto) Lymph % (Auto) [place] % (Auto) Eos % (Auto) Baso % (Auto) Lymph # (Auto) [place] # (Auto) Eos # (Auto) Baso # (Auto) Abs Immat Gran (auto) Absolute Neuts (auto) Absolute Nucleated RBC Nucleated RBC % % Immature Plt Fraction Puncture Site ABG pH ABG pCO2 ABG pO2 ABG PO2/FiO2 Ratio ABG HCO3 ABG O2 Saturation ABG O2 Content ABG Base Excess A-a Gradient Oxyhemoglobin Total Hemoglobin O2 Delivery Device O2 Liters/Min FiO2 Sodium Potassium Chloride Carbon Dioxide 26 Anion Gap 6 9 BUN 9 9 Creatinine 0.96 Estim Creat Clear Calc Estimated GFR Glucose POC Capillary Glucose Calcium Total Bilirubin AST ALT Alkaline Phosphatase Total Protein Albumin 09/23/24 09/23/24 09/23/24 09:09 09:09 09:09 WBC RBC Hgb Hct MCV MCH MCHC RDW Plt Count MPV Immature Gran % (Auto) Neut % (Auto) Lymph % (Auto) [place] % (Auto) Eos % (Auto) Baso % (Auto) Lymph # (Auto) [place] # (Auto) Eos # (Auto) Baso # (Auto) Abs Immat Gran (auto) Absolute Neuts (auto) Absolute Nucleated RBC Nucleated RBC % % Immature Plt Fraction Puncture Site ABG pH ABG pCO2 ABG pO2 ABG PO2/FiO2 Ratio ABG HCO3 ABG O2 Saturation ABG O2 Content ABG Base Excess A-a Gradient Oxyhemoglobin Total Hemoglobin O2 Delivery Device O2 Liters/Min FiO2 Sodium Potassium Chloride Carbon Dioxide Anion Gap BUN Creatinine 0.92 Estim Creat Clear Calc 83 86 Estimated GFR > 60 > 60 Glucose 211 H POC Capillary Glucose Calcium Total Bilirubin AST ALT Alkaline Phosphatase Total Protein Albumin 09/23/24 09/23/24 09/23/24 09:09 09:09 09:09 WBC RBC Hgb Hct MCV MCH MCHC RDW Plt Count MPV Immature Gran % (Auto) Neut % (Auto) Lymph % (Auto) [place] % (Auto) Eos % (Auto) Baso % (Auto) Lymph # (Auto) [place] # (Auto) Eos # (Auto) Baso # (Auto) Abs Immat Gran (auto) Absolute Neuts (auto) Absolute Nucleated RBC Nucleated RBC % % Immature Plt Fraction Puncture Site ABG pH ABG pCO2 ABG pO2 ABG PO2/FiO2 Ratio ABG HCO3 ABG O2 Saturation ABG O2 Content ABG Base Excess A-a Gradient Oxyhemoglobin Total Hemoglobin O2 Delivery Device O2 Liters/Min FiO2 Sodium Potassium Chloride Carbon Dioxide Anion Gap BUN Creatinine Estim Creat Clear Calc Estimated GFR Glucose 205 H POC Capillary Glucose Calcium 8.3 L 8.4 Total Bilirubin 3.1 H 3.2 H AST 506 H ALT Alkaline Phosphatase Total Protein Albumin 09/23/24 09/23/24 09/23/24 09:09 09:09 09:09 WBC RBC Hgb Hct MCV MCH MCHC RDW Plt Count MPV Immature Gran % (Auto) Neut % (Auto) Lymph % (Auto) [place] % (Auto) Eos % (Auto) Baso % (Auto) Lymph # (Auto) [place] # (Auto) Eos # (Auto) Baso # (Auto) Abs Immat Gran (auto) Absolute Neuts (auto) Absolute Nucleated RBC Nucleated RBC % % Immature Plt Fraction Puncture Site ABG pH ABG pCO2 ABG pO2 ABG PO2/FiO2 Ratio ABG HCO3 ABG O2 Saturation ABG O2 Content ABG Base Excess A-a Gradient Oxyhemoglobin Total Hemoglobin O2 Delivery Device O2 Liters/Min FiO2 Sodium Potassium Chloride Carbon Dioxide Anion Gap BUN Creatinine Estim Creat Clear Calc Estimated GFR Glucose POC Capillary Glucose Calcium Total Bilirubin AST 534 H ALT 292 H 300 H Alkaline Phosphatase 83 93 Total Protein 7.6 Albumin 09/23/24 09/23/24 09/23/24 09:09 09:09 10:30 WBC RBC Hgb Hct MCV MCH MCHC RDW Plt Count MPV Immature Gran % (Auto) Neut % (Auto) Lymph % (Auto) [place] % (Auto) Eos % (Auto) Baso % (Auto) Lymph # (Auto) [place] # (Auto) Eos # (Auto) Baso # (Auto) Abs Immat Gran (auto) Absolute Neuts (auto) Absolute Nucleated RBC Nucleated RBC % % Immature Plt Fraction Puncture Site ABG pH ABG pCO2 ABG pO2 ABG PO2/FiO2 Ratio ABG HCO3 ABG O2 Saturation ABG O2 Content ABG Base Excess A-a Gradient Oxyhemoglobin Total Hemoglobin O2 Delivery Device O2 Liters/Min FiO2 Sodium Potassium Chloride Carbon Dioxide Anion Gap BUN Creatinine Estim Creat Clear Calc Estimated GFR Glucose POC Capillary Glucose 236 H Calcium Total Bilirubin AST ALT Alkaline Phosphatase Total Protein 6.9 Albumin 3.7 3.6 09/23/24 09/23/24 09/23/24 10:54 12:46 16:07 WBC RBC Hgb Hct MCV MCH MCHC RDW Plt Count MPV Immature Gran % (Auto) Neut % (Auto) Lymph % (Auto) [place] % (Auto) Eos % (Auto) Baso % (Auto) Lymph # (Auto) [place] # (Auto) Eos # (Auto) Baso # (Auto) Abs Immat Gran (auto) Absolute Neuts (auto) Absolute Nucleated RBC Nucleated RBC % % Immature Plt Fraction Puncture Site Left radial ABG pH 7.432 ABG pCO2 32.7 L ABG pO2 52.0 L ABG PO2/FiO2 Ratio 2.48 ABG HCO3 21.3 L ABG O2 Saturation 88.2 L ABG O2 Content 18.8 ABG Base Excess -2.0 A-a Gradient 58.6 Oxyhemoglobin 88.4 L Total Hemoglobin 15.2 O2 Delivery Device Room air O2 Liters/Min Not Reportable FiO2 21 Sodium Potassium Chloride Carbon Dioxide Anion Gap BUN Creatinine Estim Creat Clear Calc Estimated GFR Glucose POC Capillary Glucose 236 H 235 H Calcium Total Bilirubin AST ALT Alkaline Phosphatase Total Protein Albumin 09/23/24 09/24/24 20:16 04:18 WBC 5.5 RBC 4.56 L Hgb 14.0 Hct 42.5 MCV 93.2 MCH 30.7 MCHC 32.9 RDW 13.0 Plt Count 111 L MPV 9.7 Immature Gran % (Auto) 0.7 H Neut % (Auto) 76.0 H Lymph % (Auto) 14.8 L [place] % (Auto) 7.3 Eos % (Auto) 0.7 Baso % (Auto) 0.5 Lymph # (Auto) 0.81 L [place] # (Auto) 0.4 Eos # (Auto) 0.0 Baso # (Auto) 0.0 Abs Immat Gran (auto) 0.04 H Absolute Neuts (auto) 4.2 Absolute Nucleated RBC 0.000 Nucleated RBC % 0.0 % Immature Plt Fraction 2.7 Puncture Site ABG pH ABG pCO2 ABG pO2 ABG PO2/FiO2 Ratio ABG HCO3 ABG O2 Saturation ABG O2 Content ABG Base Excess A-a Gradient Oxyhemoglobin Total Hemoglobin O2 Delivery Device O2 Liters/Min FiO2 Sodium 138 Potassium 3.9 Chloride 103 Carbon Dioxide 26 Anion Gap 9 BUN 10 Creatinine 1.06 Estim Creat Clear Calc 74 Estimated GFR > 60 Glucose 146 H POC Capillary Glucose 199 H Calcium 8.3 L Total Bilirubin 5.1 H AST 462 H ALT 336 H Alkaline Phosphatase 87 Total Protein 7.4 Albumin 3.5
[2024-09-24] MEDS: METOPROLOL TARTRATE 12.5 MG TABLET PO ×2 (09:22→20:18)
[2024-09-24] MEDS: ASPIRIN 81 MG ENTERIC TABLET PO ×2 (09:22→17:15)
[2024-09-24] MEDS: ATORVASTATIN 40 MG TABLET 80 MG PO (09:23)
--- NOTE | 2024-09-24 09:50 | P.PNIM_ITS ---
Progress Note: A&P Assessment and Plan (1) Non-ST elevation [place] (NSTEMI): Code(s): I21.4 - Non-ST elevation (NSTEMI) myocardial infarction Status: Acute Plan Patient is a 69-year-old male who presents emergency department this evening via EMS complaining of generalized weakness. NSTEMI Upon arrival to ED, patient was found have elevated troponin that is trending up, EKG shows sinus rhythm, no specific ST or T-wave changes, Pending echocardiogram Telemetry monitoring Aspirin 325 mg once and 81 mg daily p.o. Consult clinical research monitor for evaluation treatment patent coronary arteries by cardiac catheterization Uncontrolled diabetes, New onset diabetes glucose 342 on arrival Hemoglobin A1c 10.6 Patient is on sliding scale Start Lantus 20 units q.h.s. lispro 6 units a.c., increase lantus to 30 qhs 09/22 Now controlled in the target range Transaminitis, gallstone Total bilirubin 2.4, AST 487, ALT 402, CPK 319 CT abdomen showed gallstone, fatty liver 09/20 MRCP 1. Cholelithiasis without choledocholithiasis or biliary dilation. 2. Hepatomegaly with prominent diffuse hepatic steatosis. 3. 2.1 x 1.2 cm likely pseudocyst related to prior acute pancreatitis along the tail of the pancreas. 4. Very small sliding-type hiatal hernia. Consult GI and general surgeon for evaluation treatment Total bilirubin is trending up, liver enzymes trending up. Severe hepatocellular dysfunction with no excretion of gallbladder activity rendering assessment for cystic duct obstruction/acute cholecystitis nondiagnostic. f/u abd us. Forty management per general surgeon 09/24 sepsis low-grade temperature, tachycardia and lactic acidosis of 4. significant transaminitis and hyperbilirubinemia, chronic immunosuppressive therapy for psoriatic arthritis. lactic acid level, blood cultures negative of COVID flu and RSV PCR. 1 of the 2 blood culture grew Klebsiella oxytoca Possible due to intra-abdominal infection Started Zosyn IV and vancomycin 09/23 Repeat blood culture no growth so far Acute encephalopathy Patient confused was minimally responsive to verbal commands CT head shows no acute intracranial hemorrhage of mass effect, the ventricle or enlarged MRI showed Normal for age brain. No acute intracranial process. Possible due to sepsis Started fluid resuscitation, vancomycin and Zosyn 09/23. Chronic patient is alert oriented x3, possible encephalopathy due to sepsis, no focal deficit 09/24 Subjective Date/time seen: 09/24/24 09:50 Interval history: I saw and exam patient in presents of patient's . Patient is alert oriented x3, patient feels tired, denies chest pain abdomen pain nausea vomiting Afebrile overnight Total bilirubin is trending up, liver enzymes trending up Severe hepatocellular dysfunction with no excretion of gallbladder activity rendering assessment for cystic duct obstruction/acute cholecystitis nondiagnostic. Exam Narrative: GENERAL: Somnolent in no acute distress. Well-nourished. - EYES: EOMI. Anicteric. - HENT: Moist mucous membranes. - LUNGS: Clear to auscultation bilateral ly, no wheezing, rhonchi, or rales. - CARDIOVASCULAR: Regular rate and rhyth m. No murmur. No JVD. - ABDOMEN: Soft, non-tender and non-dist ended. No palpable masses. - EXTREMITIES: No edema. Peripheral puls es 2+. Non-tender. - NEUROLOGIC: No focal neurological defi cits. CN II-XII grossly intact. - PSYCHIATRIC: Awake, confused not orien jessica x 3. Moving all extremities with pain stimuli. - SKIN: No rashes or lesions. Warm. - LYMPH: No cervical lymphadenopathy. Objective Data Vital Signs Vital Signs: Vital Signs - 24 hr 09/23/24 10:30 09/23/24 10:30 09/23/24 10:40 Temperature 99.1 F Pulse Rate 101 H Respiratory Rate 20 30 H Blood Pressure 198/71 H Pulse Oximetry 90 90 Oxygen Delivery Room Air Oxygen Flow Rate 09/23/24 11:25 09/23/24 12:23 09/23/24 12:23 Temperature 98.4 F 103.8 F H Pulse Rate 110 H 108 H Respiratory Rate 30 H 26 H Blood Pressure 205/71 H 191/54 H 193/72 H Pulse Oximetry 96 94 Oxygen Delivery Oxygen Flow Rate 09/23/24 12:30 09/23/24 12:30 09/23/24 12:31 Temperature 103.8 F H Pulse Rate 102 H Respiratory Rate Blood Pressure Pulse Oximetry 97 Oxygen Delivery Nasal Cannula Oxygen Flow Rate 2 09/23/24 13:30 09/23/24 13:39 09/23/24 14:00 Temperature 103 F H 103.4 F H Pulse Rate 102 H Respiratory Rate 24 H Blood Pressure 147/57 H Pulse Oximetry 97 Oxygen Delivery Oxygen Flow Rate 09/23/24 14:00 09/23/24 14:35 09/23/24 15:34 Temperature 102.2 F H 101.0 F H Pulse Rate 94 102 H Respiratory Rate 22 H Blood Pressure 123/70 Pulse Oximetry 92 Oxygen Delivery Oxygen Flow Rate 09/23/24 16:00 09/23/24 16:00 09/23/24 17:30 Temperature 100.5 F H Pulse Rate 95 Respiratory Rate Blood Pressure Pulse Oximetry 92 Oxygen Delivery Nasal Cannula Oxygen Flow Rate 2 09/23/24 18:00 09/23/24 18:51 09/23/24 19:30 Temperature 99.4 F 98.7 F Pulse Rate 87 80 Respiratory Rate 22 H Blood Pressure 130/53 L Pulse Oximetry 93 Oxygen Delivery Oxygen Flow Rate 09/23/24 20:00 09/23/24 20:00 09/23/24 21:14 Temperature Pulse Rate 87 84 Respiratory Rate Blood Pressure Pulse Oximetry Oxygen Delivery Room Air Oxygen Flow Rate 09/23/24 22:00 09/24/24 00:00 09/24/24 00:00 Temperature Pulse Rate 86 85 Respiratory Rate Blood Pressure Pulse Oximetry Oxygen Delivery Room Air Oxygen Flow Rate 09/24/24 00:12 09/24/24 02:00 09/24/24 04:00 Temperature 99.5 F Pulse Rate 83 80 Respiratory Rate 22 H Blood Pressure 159/62 H Pulse Oximetry 94 Oxygen Delivery Room Air Oxygen Flow Rate 09/24/24 04:00 09/24/24 04:00 09/24/24 06:00 Temperature 100.4 F H Pulse Rate 95 91 87 Respiratory Rate 18 Blood Pressure 148/71 H Pulse Oximetry 94 Oxygen Delivery Oxygen Flow Rate 09/24/24 07:00 09/24/24 08:00 09/24/24 09:22 Temperature 99.6 F 98.8 F Pulse Rate 83 79 Respiratory Rate 20 Blood Pressure 167/59 H Pulse Oximetry 93 Oxygen Delivery Oxygen Flow Rate Intake/Output Intake/Output: Intake & Output 09/21/24 09/22/24 09/23/24 09/24/24 23:59 23:59 23:59 23:59 Intake Total 3080.9 1305.5 2100 550 Output Total 650 1200 1450 1000 Balance 2430.9 105.5 650 -450 Meds/Results Medications: Active Medications Generic Name Dose Route Start Last Admin Trade Name Freq PRN Reason Stop Dose Admin Acetaminophen 650 mg 09/23/24 12:21 09/23/24 12:31 Acetaminophen 650 Mg Suppository RECTAL 650 mg Q6H PRN Administration Mild Pain (1-3) or Fever Aspirin 81 mg 09/22/24 09:00 09/24/24 09:22 Aspirin 81 Mg Enteric Tablet PO 81 mg BID ELIJAH Administration Atorvastatin Calcium 80 mg 09/21/24 13:30 09/24/24 09:23 Atorvastatin 40 Mg Tablet PO 80 mg DAILY ELIJAH Administration Dextrose 12.5 gm 09/21/24 00:14 Dextrose 50% 25 Gm/50 Ml Syringe IV PUSH PRN PRN Hypoglycemia Protocol Glucagon 1 mg 09/21/24 00:14 Glucagon For Inj 1 Mg Vial IM PRN PRN Hypoglycemia Protocol Glucose 15 gm 09/21/24 00:14 Glucose Oral Gel 15 Gm Of Glucse In 37.5 Gm Tube PO PRN PRN Hypoglycemia Protocol Hydralazine HCl 10 mg 09/23/24 13:32 Hydralazine Hcl 20 Mg/Ml Vial IV PUSH Q6H PRN Blood Pressure - High Dextrose 1,000 mls @ 100 mls/hr 09/21/24 00:14 Dextrose 5% 1,000 Ml IVPB PRN PRN Hypoglycemia Protocol Piperacillin Sod/Tazobactam 50 mls @ 100 mls/hr 09/23/24 10:00 09/24/24 09:26 Sod 3.375 gm/ Sodium Chloride IVPB 100 mls/hr Q6H ELIJAH Administration Sodium Chloride 1,000 mls @ 100 mls/hr 09/23/24 12:25 09/24/24 02:05 Normal Saline Iv IV CONT 100 mls/hr .Q10H ELIJAH Administration Vancomycin HCl 1,500 mg in 500 mls @ 250 mls/hr 09/24/24 20:00 Vancomycin 1,500 Mg/Ns 500 Ml IVPB Q18H [facility] Insulin Aspart 4 - 8 units 09/21/24 08:00 09/24/24 09:22 Insulin Aspart (*Bkc) 100 Units/Ml SUB-Q Not Given TIDWM [facility] Protocol Insulin Aspart 2 - 4 units 09/21/24 21:00 09/23/24 21:17 Insulin Aspart (*Bkc) 100 Units/Ml SUB-Q Not Given HS [facility] Protocol Insulin Aspart 6 units 09/21/24 12:00 09/23/24 16:29 Insulin Aspart (*Bkc) 100 Units/Ml 0.05 units/kg (6 units) Not Given SUB-Q TIDWM ELIJAH Insulin Glargine 30 units 09/22/24 21:00 09/23/24 21:17 Insulin Glargine (*Bkc) 100 Units/Ml SUB-Q 30 units HS ELIJAH Administration Lisinopril 2.5 mg 09/23/24 09:00 09/24/24 09:23 Lisinopril 2.5 Mg Tablet PO 2.5 mg QAM ELIJAH Administration Metoprolol Tartrate 12.5 mg 09/22/24 09:00 09/24/24 09:22 Metoprolol Tartrate 12.5 Mg Tablet PO 12.5 mg Q12HR ELIJAH Administration Radiology Results: ITS Impressions Chest X-Ray 09/20/24 20:34 IMPRESSION: No focal infiltrate or effusion. Abdomen/Pelvis CT 09/20/24 23:03 IMPRESSION: Fatty infiltration of a markedly enlarged liver. Cholelithiasis. Findings caudal to the tail of the pancreas for which an early pseudocyst formation versus carcinoid is suspected. Nonobstructing stones within the bilateral kidneys. Chest CTA 09/21/24 15:12 IMPRESSION: 1. No pulmonary embolism. 2. No acute cardiopulmonary pathology. 3. Fat infiltration of the liver. 4. Cholelithiasis. 5. Left adrenal adenoma. No follow-up advised unless clinically warranted. MRCP 09/22/24 13:24 IMPRESSION: 1. Cholelithiasis without choledocholithiasis or biliary dilation. 2. Hepatomegaly with prominent diffuse hepatic steatosis. 3. 2.1 x 1.2 cm likely pseudocyst related to prior acute pancreatitis along the tail of the pancreas. 4. Very small sliding-type hiatal hernia. Head CT 09/23/24 11:27 Impression: No acute intracranial hemorrhage or suspicious mass effect. Brain MRI 09/23/24 12:08 IMPRESSION: 1. Normal for age brain. No acute intracranial process. Hepatobiliary Scan Nuclear Medicine 09/23/24 13:38 IMPRESSION: 1. Severe hepatocellular dysfunction with no excretion of gallbladder activity rendering assessment for cystic duct obstruction/acute cholecystitis nondiagnostic. Labs Labs: Laboratory Results - last 24 hr 09/23/24 09/23/24 09/23/24 09:05 09:09 10:30 WBC 3.9 L RBC 4.63 Hgb 13.9 L Hct 43.1 MCV 93.1 MCH 30.0 MCHC 32.3 RDW 13.0 Plt Count 95 L MPV 10.4 Immature Gran % (Auto) 0.8 H Neut % (Auto) 68.6 Lymph % (Auto) 19.7 [place] % (Auto) 9.1 H Eos % (Auto) 1.3 Baso % (Auto) 0.5 Lymph # (Auto) 0.76 L [place] # (Auto) 0.4 Eos # (Auto) 0.1 Baso # (Auto) 0.0 Abs Immat Gran (auto) 0.03 Absolute Neuts (auto) 2.7 Absolute Nucleated RBC 0.000 Nucleated RBC % 0.0 % Immature Plt Fraction 4.2 Puncture Site ABG pH ABG pCO2 ABG pO2 ABG PO2/FiO2 Ratio ABG HCO3 ABG O2 Saturation ABG O2 Content ABG Base Excess A-a Gradient Oxyhemoglobin Total Hemoglobin O2 Delivery Device O2 Liters/Min FiO2 Sodium 136 L Potassium 3.9 Chloride 101 Carbon Dioxide 26 Anion Gap 9 BUN 9 Creatinine 0.92 Estim Creat Clear Calc 86 Estimated GFR > 60 Glucose 205 H POC Capillary Glucose 236 H Calcium 8.4 Total Bilirubin 3.2 H AST 534 H ALT 300 H Alkaline Phosphatase 93 Total Protein 6.9 Albumin 3.6 09/23/24 09/23/24 09/23/24 10:54 12:46 16:07 WBC RBC Hgb Hct MCV MCH MCHC RDW Plt Count MPV Immature Gran % (Auto) Neut % (Auto) Lymph % (Auto) [place] % (Auto) Eos % (Auto) Baso % (Auto) Lymph # (Auto) [place] # (Auto) Eos # (Auto) Baso # (Auto) Abs Immat Gran (auto) Absolute Neuts (auto) Absolute Nucleated RBC Nucleated RBC % % Immature Plt Fraction Puncture Site Left radial ABG pH 7.432 ABG pCO2 32.7 L ABG pO2 52.0 L ABG PO2/FiO2 Ratio 2.48 ABG HCO3 21.3 L ABG O2 Saturation 88.2 L ABG O2 Content 18.8 ABG Base Excess -2.0 A-a Gradient 58.6 Oxyhemoglobin 88.4 L Total Hemoglobin 15.2 O2 Delivery Device Room air O2 Liters/Min Not Reportable FiO2 21 Sodium Potassium Chloride Carbon Dioxide Anion Gap BUN Creatinine Estim Creat Clear Calc Estimated GFR Glucose POC Capillary Glucose 236 H 235 H Calcium Total Bilirubin AST ALT Alkaline Phosphatase Total Protein Albumin 09/23/24 09/24/24 09/24/24 20:16 04:18 08:03 WBC 5.5 RBC 4.56 L Hgb 14.0 Hct 42.5 MCV 93.2 MCH 30.7 MCHC 32.9 RDW 13.0 Plt Count 111 L MPV 9.7 Immature Gran % (Auto) 0.7 H Neut % (Auto) 76.0 H Lymph % (Auto) 14.8 L [place] % (Auto) 7.3 Eos % (Auto) 0.7 Baso % (Auto) 0.5 Lymph # (Auto) 0.81 L [place] # (Auto) 0.4 Eos # (Auto) 0.0 Baso # (Auto) 0.0 Abs Immat Gran (auto) 0.04 H Absolute Neuts (auto) 4.2 Absolute Nucleated RBC 0.000 Nucleated RBC % 0.0 % Immature Plt Fraction 2.7 Puncture Site ABG pH ABG pCO2 ABG pO2 ABG PO2/FiO2 Ratio ABG HCO3 ABG O2 Saturation ABG O2 Content ABG Base Excess A-a Gradient Oxyhemoglobin Total Hemoglobin O2 Delivery Device O2 Liters/Min FiO2 Sodium 138 Potassium 3.9 Chloride 103 Carbon Dioxide 26 Anion Gap 9 BUN 10 Creatinine 1.06 Estim Creat Clear Calc 74 Estimated GFR > 60 Glucose 146 H POC Capillary Glucose 199 H 154 H Calcium 8.3 L Total Bilirubin 5.1 H AST 462 H ALT 336 H Alkaline Phosphatase 87 Total Protein 7.4 Albumin 3.5
[2024-09-24] MEDS: INSULIN GLARGINE (*BKC) 100 UNITS/ML 30 UNITS SUB-Q (20:54)
[2024-09-24] MEDS: INSULIN ASPART (*BKC) 100 UNITS/ML SUB-Q (21:02)
[2024-09-25] VITALS (9 sets, daily range): BP systolic 131–169; BP diastolic 45–63; PULSE 63–84; RESP 18–20; TEMP 36.7–37; O2SAT 93–97
[2024-09-25] MEDS: PIPERACILLIN/TAZOBACTAM SOD 3.375 GM in SODIUM CHLORIDE 0.9% IV 50 ML 100 ML IVPB ×4 (04:06→21:19)
[2024-09-25 05:03] LABS: Hematocrit 37.9 % (42.0-52.0); Hemoglobin 12.2 g/dL (14.0-18.0); Immature Granulocyte Percent A 0.2 % (0-0.5); Immature Platelet Fraction Pct 3.4 % (0.9-11.2); Lymphocytes Absolute Auto 0.86 K/mm3 (0.9-3.2); Mean Corpuscular HGB Conc 32.2 g/dl (32-36); Mean Corpuscular Hemoglobin 30.3 pg (26-34); Mean Corpuscular Volume 94.3 fl (80-100); Nucleated Red Blood Cells Absolute Auto 0.000 K/mm3 (0.0-0.012); Nucleated Red Blood Cells Perc 0.0 % (0.0-0.2); Platelet Count Result 109 k/mm3 (150-375); Red Blood Count 4.02 M/mm3 (4.6-6.20); White Blood Count 4.2 K/mm3 (4.5-10.0)
[2024-09-25 05:17] LABS: Alanine Aminotransferase 244 U/L (6-50); Albumin Level 3.1 g/dL (3.5-5.1); Alkaline Phosphatase 94 U/L (38-126); Anion Gap 6 mmol/L (4-12); Aspartate Amino Transferase 261 U/L (17-59); Bilirubin,Total 1.5 mg/dL (0.2-1.3); Blood Urea Nitrogen 11 mg/dL (9-20); Calcium 7.9 mg/dL (8.4-10.2); Carbon Dioxide 24 mmol/L (22-30); Chloride 107 mmol/L (98-107); Estimated CRCL calculation 79 ml/min; Estimated Glomerular Filt Rate > 60; Glucose 120 mg/dL (65-110); Potassium 3.5 mmol/L (3.4-5.0); Sodium 137 mmol/L (137-145); Total Protein 6.7 g/dL (6.3-8.2)
[2024-09-25] MEDS: SODIUM CHLORIDE 0.9% IV 1,000 ML 100 ML IV CONT ×3 (06:25→19:46)
--- NOTE | 2024-09-25 07:55 | P.PNGS_ITS ---
Progress Note: A&P Assessment and Plan (1) Transaminitis: Code(s): R74.01 - Elevation of levels of liver transaminase levels Status: Acute Assessment and Plan: LFTs much improved today, exam completely, will advance diet as tolerated (2) Gram-negative bacteremia: Code(s): R78.81 - Bacteremia Status: Acute Assessment and Plan: continue antibiotics, seems to be improved Subjective Subjective Date/Time Seen: 09/25/24 07:55 Interval history: no acute issues, anthony clears, denies abd pain Review of Systems Review of Systems: All systems reviewed & are unremarkable except as noted in HPI and below Exam Const: General: cooperative, comfortable, no acute distress and ill appearing Resp: Auscultation: diminished lung sounds Cardio: Rate: regular rate Rhythm: regular rhythm GI: Inspection: normal to inspection, distended and obesity GI Palp: No abdominal tenderness and Yes Soft to palpation Objective Data Vital Signs Vital Signs: Vital Signs - 24 hr 09/24/24 08:00 09/24/24 08:00 09/24/24 08:00 Temperature 37.1 C Pulse Rate 83 Respiratory Rate 20 Blood Pressure 167/59 H Pulse Oximetry 93 94 Oxygen Delivery Room Air Room Air Fraction of Inspired Oxygen 21 09/24/24 08:00 09/24/24 09:22 09/24/24 10:00 Temperature Pulse Rate 83 79 78 Respiratory Rate Blood Pressure Pulse Oximetry Oxygen Delivery Fraction of Inspired Oxygen 09/24/24 12:00 09/24/24 12:00 09/24/24 12:00 Temperature 36.6 C Pulse Rate 74 74 Respiratory Rate 20 Blood Pressure 132/66 Pulse Oximetry 95 Oxygen Delivery Room Air Fraction of Inspired Oxygen 09/24/24 14:00 09/24/24 16:00 09/24/24 16:00 Temperature 36.8 C Pulse Rate 76 77 Respiratory Rate 18 Blood Pressure Pulse Oximetry 95 Oxygen Delivery Room Air Fraction of Inspired Oxygen 09/24/24 16:00 09/24/24 18:00 09/24/24 19:54 Temperature 36.9 C Pulse Rate 74 82 87 Respiratory Rate 20 Blood Pressure 144/58 H Pulse Oximetry 95 Oxygen Delivery Fraction of Inspired Oxygen 09/24/24 20:00 09/24/24 20:18 09/24/24 22:00 Temperature Pulse Rate 82 80 72 Respiratory Rate Blood Pressure Pulse Oximetry Oxygen Delivery Fraction of Inspired Oxygen 09/24/24 23:43 09/25/24 02:00 09/25/24 04:00 Temperature 36.6 C Pulse Rate 77 70 67 Respiratory Rate 20 Blood Pressure 167/54 H Pulse Oximetry 95 Oxygen Delivery Fraction of Inspired Oxygen 09/25/24 05:10 09/25/24 06:00 Temperature 36.8 C Pulse Rate 63 66 Respiratory Rate 18 Blood Pressure 131/54 L Pulse Oximetry 96 Oxygen Delivery Fraction of Inspired Oxygen Intake/Output Intake/Output: Intake & Output 09/22/24 09/23/24 09/24/24 09/25/24 23:59 23:59 23:59 23:59 Intake Total 1305.5 2100 2620 1053.3 Output Total 1200 1450 2350 1450 Balance 105.5 650 270 -396.7 Meds/Results Medications: Active Medications Generic Name Dose Route Start Last Admin Trade Name Freq PRN Reason Stop Dose Admin Acetaminophen 650 mg 09/23/24 12:21 09/23/24 12:31 Acetaminophen 650 Mg Suppository RECTAL 650 mg Q6H PRN Administration Mild Pain (1-3) or Fever Aspirin 81 mg 09/22/24 09:00 09/24/24 17:15 Aspirin 81 Mg Enteric Tablet PO 81 mg BID ELIJAH Administration Atorvastatin Calcium 80 mg 09/21/24 13:30 09/24/24 09:23 Atorvastatin 40 Mg Tablet PO 80 mg DAILY ELIJAH Administration Dextrose 12.5 gm 09/21/24 00:14 Dextrose 50% 25 Gm/50 Ml Syringe IV PUSH PRN PRN Hypoglycemia Protocol Glucagon 1 mg 09/21/24 00:14 Glucagon For Inj 1 Mg Vial IM PRN PRN Hypoglycemia Protocol Glucose 15 gm 09/21/24 00:14 Glucose Oral Gel 15 Gm Of Glucse In 37.5 Gm Tube PO PRN PRN Hypoglycemia Protocol Hydralazine HCl 10 mg 09/23/24 13:32 Hydralazine Hcl 20 Mg/Ml Vial IV PUSH Q6H PRN Blood Pressure - High Dextrose 1,000 mls @ 100 mls/hr 09/21/24 00:14 Dextrose 5% 1,000 Ml IVPB PRN PRN Hypoglycemia Protocol Piperacillin Sod/Tazobactam 50 mls @ 100 mls/hr 09/23/24 10:00 09/25/24 04:36 Sod 3.375 gm/ Sodium Chloride IVPB Infused Q6H ELIJAH Infusion Sodium Chloride 1,000 mls @ 100 mls/hr 09/23/24 12:25 09/25/24 06:27 Normal Saline Iv IV CONT 100 mls/hr .Q10H ELIJAH Administration Vancomycin HCl 1,500 mg in 500 mls @ 250 mls/hr 09/24/24 20:00 09/24/24 22:19 Vancomycin 1,500 Mg/Ns 500 Ml IVPB Infused Q18H ELIJAH Infusion Insulin Aspart 4 - 8 units 09/21/24 08:00 09/24/24 17:17 Insulin Aspart (*Bkc) 100 Units/Ml SUB-Q Not Given TIDWM ELIJAH Protocol Insulin Aspart 2 - 4 units 09/21/24 21:00 09/24/24 21:02 Insulin Aspart (*Bkc) 100 Units/Ml SUB-Q 2 units HS ELIJAH Administration Protocol Insulin Aspart 6 units 09/21/24 12:00 09/24/24 17:17 Insulin Aspart (*Bkc) 100 Units/Ml 0.05 units/kg (6 units) Not Given SUB-Q TIDWM ELIJAH Insulin Glargine 30 units 09/22/24 21:00 09/24/24 20:54 Insulin Glargine (*Bkc) 100 Units/Ml SUB-Q 30 units HS ELIJAH Administration Lisinopril 2.5 mg 09/23/24 09:00 09/24/24 09:23 Lisinopril 2.5 Mg Tablet PO 2.5 mg QAM ELIJAH Administration Metoprolol Tartrate 12.5 mg 09/22/24 09:00 09/24/24 20:18 Metoprolol Tartrate 12.5 Mg Tablet PO 12.5 mg Q12HR ELIJAH Administration Radiology Results: ITS Impressions Chest X-Ray 09/20/24 20:34 IMPRESSION: No focal infiltrate or effusion. Abdomen/Pelvis CT 09/20/24 23:03 IMPRESSION: Fatty infiltration of a markedly enlarged liver. Cholelithiasis. Findings caudal to the tail of the pancreas for which an early pseudocyst formation versus carcinoid is suspected. Nonobstructing stones within the bilateral kidneys. Chest CTA 09/21/24 15:12 IMPRESSION: 1. No pulmonary embolism. 2. No acute cardiopulmonary pathology. 3. Fat infiltration of the liver. 4. Cholelithiasis. 5. Left adrenal adenoma. No follow-up advised unless clinically warranted. MRCP 09/22/24 13:24 IMPRESSION: 1. Cholelithiasis without choledocholithiasis or biliary dilation. 2. Hepatomegaly with prominent diffuse hepatic steatosis. 3. 2.1 x 1.2 cm likely pseudocyst related to prior acute pancreatitis along the tail of the pancreas. 4. Very small sliding-type hiatal hernia. Head CT 09/23/24 11:27 Impression: No acute intracranial hemorrhage or suspicious mass effect. Brain MRI 09/23/24 12:08 IMPRESSION: 1. Normal for age brain. No acute intracranial process. Hepatobiliary Scan Nuclear Medicine 09/23/24 13:38 IMPRESSION: 1. Severe hepatocellular dysfunction with no excretion of gallbladder activity rendering assessment for cystic duct obstruction/acute cholecystitis nondiagnostic. Abdomen Ultrasound 09/24/24 15:26 IMPRESSION: Fat infiltration of the liver. Cyst in the left lobe of the liver. Hypoechoic area in the dome of the liver with vascularity which may represent a hemangioma versus a mass. Follow-up and further evaluation advised. Otherwise, normal limited abdominal ultrasound. Labs Labs: Laboratory Results - last 24 hr 09/24/24 09/24/24 09/24/24 08:03 11:38 16:22 WBC RBC Hgb Hct MCV MCH MCHC RDW Plt Count MPV Immature Gran % (Auto) Neut % (Auto) Lymph % (Auto) [place] % (Auto) Eos % (Auto) Baso % (Auto) Lymph # (Auto) [place] # (Auto) Eos # (Auto) Baso # (Auto) Abs Immat Gran (auto) Absolute Neuts (auto) Absolute Nucleated RBC Nucleated RBC % % Immature Plt Fraction Sodium Potassium Chloride Carbon Dioxide Anion Gap BUN Creatinine Estim Creat Clear Calc Estimated GFR Glucose POC Capillary Glucose 154 H 148 H 130 H Calcium Total Bilirubin AST ALT Alkaline Phosphatase Total Protein Albumin 09/24/24 09/25/24 09/25/24 19:59 04:04 07:26 WBC 4.2 L RBC 4.02 L Hgb 12.2 L Hct 37.9 L MCV 94.3 MCH 30.3 MCHC 32.2 RDW 13.3 Plt Count 109 L MPV 9.8 Immature Gran % (Auto) 0.2 Neut % (Auto) 67.1 Lymph % (Auto) 20.5 [place] % (Auto) 8.1 Eos % (Auto) 3.6 Baso % (Auto) 0.5 Lymph # (Auto) 0.86 L [place] # (Auto) 0.3 Eos # (Auto) 0.2 Baso # (Auto) 0.0 Abs Immat Gran (auto) 0.01 Absolute Neuts (auto) 2.8 Absolute Nucleated RBC 0.000 Nucleated RBC % 0.0 % Immature Plt Fraction 3.4 Sodium 137 Potassium 3.5 Chloride 107 Carbon Dioxide 24 Anion Gap 6 BUN 11 Creatinine 0.99 Estim Creat Clear Calc 79 Estimated GFR > 60 Glucose 120 H POC Capillary Glucose 237 H 129 H Calcium 7.9 L Total Bilirubin 1.5 H AST 261 H ALT 244 H Alkaline Phosphatase 94 Total Protein 6.7 Albumin 3.1 L
--- NOTE | 2024-09-25 09:01 | P.PNIM_ITS ---
Progress Note: A&P Assessment and Plan (1) Non-ST elevation [place] (NSTEMI): Code(s): I21.4 - Non-ST elevation (NSTEMI) myocardial infarction Status: Acute Plan Patient is a 69-year-old male who presents emergency department this evening via EMS complaining of generalized weakness. NSTEMI Upon arrival to ED, patient was found have elevated troponin that is trending up, EKG shows sinus rhythm, no specific ST or T-wave changes, Pending echocardiogram Telemetry monitoring Aspirin 325 mg once and 81 mg daily p.o. Consult scenic arts supervisor for evaluation treatment patent coronary arteries by cardiac catheterization Uncontrolled diabetes, New onset diabetes glucose 342 on arrival Hemoglobin A1c 10.6 Patient is on sliding scale Start Lantus 20 units q.h.s. lispro 6 units a.c., increase lantus to 30 qhs 09/22 Now controlled in the target range Transaminitis, gallstone Total bilirubin 2.4, AST 487, ALT 402, CPK 319 CT abdomen showed gallstone, fatty liver 09/20 MRCP 1. Cholelithiasis without choledocholithiasis or biliary dilation. 2. Hepatomegaly with prominent diffuse hepatic steatosis. 3. 2.1 x 1.2 cm likely pseudocyst related to prior acute pancreatitis along the tail of the pancreas. 4. Very small sliding-type hiatal hernia. Consult GI and general surgeon for evaluation treatment Total bilirubin is trending up, liver enzymes trending up. Severe hepatocellular dysfunction with no excretion of gallbladder activity rendering assessment for cystic duct obstruction/acute cholecystitis nondiagnostic. f/u abd us. Forty management per general surgeon 09/24 Patient is afebrile overnight 09/25 Total bilirubin and liver enzymes trending down today sepsis low-grade temperature, tachycardia and lactic acidosis of 4. significant transaminitis and hyperbilirubinemia, chronic immunosuppressive therapy for psoriatic arthritis. lactic acid level, blood cultures negative of COVID flu and RSV PCR. 1 of the 2 blood culture grew Klebsiella oxytoca Possible due to intra-abdominal infection Started Zosyn IV and vancomycin 09/23 Repeat blood culture no growth so far Acute encephalopathy Patient confused was minimally responsive to verbal commands CT head shows no acute intracranial hemorrhage of mass effect, the ventricle or enlarged MRI showed Normal for age brain. No acute intracranial process. Possible due to sepsis Started fluid resuscitation, vancomycin and Zosyn 09/23. Currently patient is alert oriented x3, possible encephalopathy due to sepsis, no focal deficit 09/24 Alert oriented x3 no focal deficit 09/25 Subjective Date/time seen: 09/25/24 09:01 Interval history: I saw and examined patient today. Patient feels better today, appetite improving, denies abdomen pain. Patient still has general weakness. Patient is afebrile overnight Total bilirubin and liver enzymes trending down today Exam Narrative: GENERAL: Pleasant, in no acute distress. Well-nourished. - EYES: EOMI. Anicteric. - HENT: Moist mucous membranes. - LUNGS: Clear to auscultation bilateral ly, no wheezing, rhonchi, or rales. - CARDIOVASCULAR: Regular rate and rhyth m. No murmur. No JVD. - ABDOMEN: Soft, non-tender and non-dist ended. No palpable masses. - EXTREMITIES: No edema. Peripheral puls es 2+. Non-tender. - NEUROLOGIC: No focal neurological defi cits. CN II-XII grossly intact. - PSYCHIATRIC: Awake, Alert and oriented x 3. Appropriate mood and affect. - SKIN: No rashes or lesions. Warm. - LYMPH: No cervical lymphadenopathy. Objective Data Vital Signs Vital Signs: Vital Signs - 24 hr 09/24/24 09:22 09/24/24 10:00 09/24/24 12:00 Temperature 97.8 F Pulse Rate 79 78 74 Respiratory Rate 20 Blood Pressure 132/66 Pulse Oximetry 95 Oxygen Delivery 09/24/24 12:00 09/24/24 12:00 09/24/24 14:00 Temperature Pulse Rate 74 76 Respiratory Rate Blood Pressure Pulse Oximetry Oxygen Delivery Room Air 09/24/24 16:00 09/24/24 16:00 09/24/24 16:00 Temperature 98.3 F Pulse Rate 77 74 Respiratory Rate 18 Blood Pressure Pulse Oximetry 95 Oxygen Delivery Room Air 09/24/24 18:00 09/24/24 19:54 09/24/24 20:00 Temperature 98.4 F Pulse Rate 82 87 82 Respiratory Rate 20 Blood Pressure 144/58 H Pulse Oximetry 95 Oxygen Delivery 09/24/24 20:18 09/24/24 22:00 09/24/24 23:43 Temperature 97.9 F Pulse Rate 80 72 77 Respiratory Rate 20 Blood Pressure 167/54 H Pulse Oximetry 95 Oxygen Delivery 09/25/24 02:00 09/25/24 04:00 09/25/24 05:10 Temperature 98.2 F Pulse Rate 70 67 63 Respiratory Rate 18 Blood Pressure 131/54 L Pulse Oximetry 96 Oxygen Delivery 09/25/24 06:00 09/25/24 08:00 Temperature 98.0 F Pulse Rate 66 71 Respiratory Rate 18 Blood Pressure 143/47 H Pulse Oximetry 97 Oxygen Delivery Intake/Output Intake/Output: Intake & Output 09/22/24 09/23/24 09/24/24 09/25/24 23:59 23:59 23:59 23:59 Intake Total 1305.5 2100 2620 1053.3 Output Total 1200 1450 2350 1450 Balance 105.5 650 270 -396.7 Meds/Results Medications: Active Medications Generic Name Dose Route Start Last Admin Trade Name Freq PRN Reason Stop Dose Admin Acetaminophen 650 mg 09/23/24 12:21 09/23/24 12:31 Acetaminophen 650 Mg Suppository RECTAL 650 mg Q6H PRN Administration Mild Pain (1-3) or Fever Aspirin 81 mg 09/22/24 09:00 09/24/24 17:15 Aspirin 81 Mg Enteric Tablet PO 81 mg BID ELIJAH Administration Atorvastatin Calcium 80 mg 09/21/24 13:30 09/24/24 09:23 Atorvastatin 40 Mg Tablet PO 80 mg DAILY ELIJAH Administration Dextrose 12.5 gm 09/21/24 00:14 Dextrose 50% 25 Gm/50 Ml Syringe IV PUSH PRN PRN Hypoglycemia Protocol Glucagon 1 mg 09/21/24 00:14 Glucagon For Inj 1 Mg Vial IM PRN PRN Hypoglycemia Protocol Glucose 15 gm 09/21/24 00:14 Glucose Oral Gel 15 Gm Of Glucse In 37.5 Gm Tube PO PRN PRN Hypoglycemia Protocol Hydralazine HCl 10 mg 09/23/24 13:32 Hydralazine Hcl 20 Mg/Ml Vial IV PUSH Q6H PRN Blood Pressure - High Dextrose 1,000 mls @ 100 mls/hr 09/21/24 00:14 Dextrose 5% 1,000 Ml IVPB PRN PRN Hypoglycemia Protocol Piperacillin Sod/Tazobactam 50 mls @ 100 mls/hr 09/23/24 10:00 09/25/24 04:36 Sod 3.375 gm/ Sodium Chloride IVPB Infused Q6H ELIJAH Infusion Sodium Chloride 1,000 mls @ 100 mls/hr 09/23/24 12:25 09/25/24 06:27 Normal Saline Iv IV CONT 100 mls/hr .Q10H ELIJAH Administration Vancomycin HCl 1,500 mg in 500 mls @ 250 mls/hr 09/24/24 20:00 09/24/24 22:19 Vancomycin 1,500 Mg/Ns 500 Ml IVPB Infused Q18H ELIJAH Infusion Insulin Aspart 4 - 8 units 09/21/24 08:00 09/24/24 17:17 Insulin Aspart (*Bkc) 100 Units/Ml SUB-Q Not Given TIDWM ELIJAH Protocol Insulin Aspart 2 - 4 units 09/21/24 21:00 09/24/24 21:02 Insulin Aspart (*Bkc) 100 Units/Ml SUB-Q 2 units HS ELIJAH Administration Protocol Insulin Aspart 6 units 09/21/24 12:00 09/24/24 17:17 Insulin Aspart (*Bkc) 100 Units/Ml 0.05 units/kg (6 units) Not Given SUB-Q TIDWM ELIJAH Insulin Glargine 30 units 09/22/24 21:00 09/24/24 20:54 Insulin Glargine (*Bkc) 100 Units/Ml SUB-Q 30 units HS ELIJAH Administration Lisinopril 2.5 mg 09/23/24 09:00 09/24/24 09:23 Lisinopril 2.5 Mg Tablet PO 2.5 mg QAM ELIJAH Administration Metoprolol Tartrate 12.5 mg 09/22/24 09:00 09/24/24 20:18 Metoprolol Tartrate 12.5 Mg Tablet PO 12.5 mg Q12HR ELIAJH Administration Radiology Results: ITS Impressions Chest X-Ray 09/20/24 20:34 IMPRESSION: No focal infiltrate or effusion. Abdomen/Pelvis CT 09/20/24 23:03 IMPRESSION: Fatty infiltration of a markedly enlarged liver. Cholelithiasis. Findings caudal to the tail of the pancreas for which an early pseudocyst formation versus carcinoid is suspected. Nonobstructing stones within the bilateral kidneys. Chest CTA 09/21/24 15:12 IMPRESSION: 1. No pulmonary embolism. 2. No acute cardiopulmonary pathology. 3. Fat infiltration of the liver. 4. Cholelithiasis. 5. Left adrenal adenoma. No follow-up advised unless clinically warranted. MRCP 09/22/24 13:24 IMPRESSION: 1. Cholelithiasis without choledocholithiasis or biliary dilation. 2. Hepatomegaly with prominent diffuse hepatic steatosis. 3. 2.1 x 1.2 cm likely pseudocyst related to prior acute pancreatitis along the tail of the pancreas. 4. Very small sliding-type hiatal hernia. Head CT 09/23/24 11:27 Impression: No acute intracranial hemorrhage or suspicious mass effect. Brain MRI 09/23/24 12:08 IMPRESSION: 1. Normal for age brain. No acute intracranial process. Hepatobiliary Scan Nuclear Medicine 09/23/24 13:38 IMPRESSION: 1. Severe hepatocellular dysfunction with no excretion of gallbladder activity rendering assessment for cystic duct obstruction/acute cholecystitis nondiagnostic. Abdomen Ultrasound 09/24/24 15:26 IMPRESSION: Fat infiltration of the liver. Cyst in the left lobe of the liver. Hypoechoic area in the dome of the liver with vascularity which may represent a hemangioma versus a mass. Follow-up and further evaluation advised. Otherwise, normal limited abdominal ultrasound. Labs Labs: Laboratory Results - last 24 hr 09/24/24 09/24/24 09/24/24 08:03 11:38 16:22 WBC RBC Hgb Hct MCV MCH MCHC RDW Plt Count MPV Immature Gran % (Auto) Neut % (Auto) Lymph % (Auto) Powell % (Auto) Eos % (Auto) Baso % (Auto) Lymph # (Auto) Powell # (Auto) Eos # (Auto) Baso # (Auto) Abs Immat Gran (auto) Absolute Neuts (auto) Absolute Nucleated RBC Nucleated RBC % % Immature Plt Fraction Sodium Potassium Chloride Carbon Dioxide Anion Gap BUN Creatinine Estim Creat Clear Calc Estimated GFR Glucose POC Capillary Glucose 154 H 148 H 130 H Calcium Total Bilirubin AST ALT Alkaline Phosphatase Total Protein Albumin 09/24/24 09/25/24 09/25/24 19:59 04:04 07:26 WBC 4.2 L RBC 4.02 L Hgb 12.2 L Hct 37.9 L MCV 94.3 MCH 30.3 MCHC 32.2 RDW 13.3 Plt Count 109 L MPV 9.8 Immature Gran % (Auto) 0.2 Neut % (Auto) 67.1 Lymph % (Auto) 20.5 Powell % (Auto) 8.1 Eos % (Auto) 3.6 Baso % (Auto) 0.5 Lymph # (Auto) 0.86 L Powell # (Auto) 0.3 Eos # (Auto) 0.2 Baso # (Auto) 0.0 Abs Immat Gran (auto) 0.01 Absolute Neuts (auto) 2.8 Absolute Nucleated RBC 0.000 Nucleated RBC % 0.0 % Immature Plt Fraction 3.4 Sodium 137 Potassium 3.5 Chloride 107 Carbon Dioxide 24 Anion Gap 6 BUN 11 Creatinine 0.99 Estim Creat Clear Calc 79 Estimated GFR > 60 Glucose 120 H POC Capillary Glucose 237 H 129 H Calcium 7.9 L Total Bilirubin 1.5 H AST 261 H ALT 244 H Alkaline Phosphatase 94 Total Protein 6.7 Albumin 3.1 L
[2024-09-25] MEDS: ATORVASTATIN 40 MG TABLET 80 MG PO (09:26)
[2024-09-25] MEDS: ASPIRIN 81 MG ENTERIC TABLET PO ×2 (09:26→16:34)
[2024-09-25] MEDS: METOPROLOL TARTRATE 12.5 MG TABLET PO ×2 (09:26→21:19)
[2024-09-25] MEDS: INSULIN ASPART (*BKC) 100 UNITS/ML 6 UNITS SUB-Q ×3 (09:27→17:50)
--- NOTE | 2024-09-25 12:35 | PC.NURSE ---
This patient, Alexandro Rizo, [facility] at 1220. Personal belongings sent with patient. Report given to Serjio. Appropriate documentation sent with patient.
[2024-09-25] MEDS: VANCOMYCIN 1,750 MG/NS 500 ML 1,750 MG/500 ML BAG 250 MG IVPB (14:05)
[2024-09-25] MEDS: INSULIN GLARGINE (*BKC) 100 UNITS/ML 30 UNITS SUB-Q (21:19)
[2024-09-26] VITALS (8 sets, daily range): BP systolic 141–168; BP diastolic 43–60; PULSE 68–75; RESP 16–22; TEMP 36.2–36.8; O2SAT 96–98; BMI 38.1
[2024-09-26] MEDS: VANCOMYCIN 1,750 MG/NS 500 ML 1,750 MG/500 ML BAG 250 MG IVPB (02:26)
[2024-09-26] MEDS: PIPERACILLIN/TAZOBACTAM SOD 3.375 GM in SODIUM CHLORIDE 0.9% IV 50 ML 100 ML IVPB ×2 (04:49→09:10)
[2024-09-26 06:59] LABS: Alanine Aminotransferase 236 U/L (6-50); Albumin Level 3.1 g/dL (3.5-5.1); Alkaline Phosphatase 157 U/L (38-126); Anion Gap 7 mmol/L (4-12); Aspartate Amino Transferase 366 U/L (17-59); Bilirubin,Total 1.3 mg/dL (0.2-1.3); Blood Urea Nitrogen 9 mg/dL (9-20); Calcium 8.1 mg/dL (8.4-10.2); Carbon Dioxide 23 mmol/L (22-30); Chloride 108 mmol/L (98-107); Estimated CRCL calculation 68 ml/min; Estimated Glomerular Filt Rate > 60; Glucose 169 mg/dL (65-110); Potassium 3.5 mmol/L (3.4-5.0); Sodium 138 mmol/L (137-145); Total Protein 6.8 g/dL (6.3-8.2)
[2024-09-26] MEDS: ASPIRIN 81 MG ENTERIC TABLET PO ×2 (09:10→16:44)
[2024-09-26] MEDS: METOPROLOL TARTRATE 12.5 MG TABLET PO ×2 (09:10→21:05)
[2024-09-26] MEDS: ATORVASTATIN 40 MG TABLET 80 MG PO (09:10)
[2024-09-26] MEDS: INSULIN ASPART (*BKC) 100 UNITS/ML 6 UNITS SUB-Q ×3 (09:11→17:01)
[2024-09-26] MEDS: SODIUM CHLORIDE 0.9% IV 1,000 ML 100 ML IV CONT ×2 (09:11→19:11)
--- NOTE | 2024-09-26 10:14 | P.PNGS_ITS ---
Progress Note: A&P Assessment and Plan (1) Transaminitis: Code(s): R74.01 - Elevation of levels of liver transaminase levels Status: Acute Assessment and Plan: LFTs remain increased. Bilirubin slightly decreased at 1.3. Based on imaging, this is likely due to hepatocellular process. Abdominal ultrasound yesterday demonstrated a cyst on the left lobe of the liver with a hypoechoic area in the dome of the liver with vascularity which may represent hemangioma versus mass. * Continue with diabetic diet * No immediate surgical intervention necessary at this time. Consider follow-up with hepatobiliary specialist. (2) Gram-negative bacteremia: Code(s): R78.81 - Bacteremia Status: Acute Assessment and Plan: continue antibiotics, seems to be improved Subjective Subjective Date/Time Seen: 09/26/24 10:14 Patient reports: no new complaints, feels better, tolerating a regular diet and bowel movement Interval history: Patient is doing well today with no abdominal pain, nausea/vomiting, or any other concerns. No acute events overnight. Exam GI: Inspection: normal to inspection, distended, obesity, no scars and visible herniation (Small umbilical) Auscultation: normal bowel sounds Objective Data Vital Signs Vital Signs: Vital Signs - 24 hr 09/25/24 14:00 09/25/24 21:10 09/25/24 21:10 Temperature 98.6 F 98.3 F Pulse Rate 69 84 84 Respiratory Rate 20 20 20 Blood Pressure 144/45 H 169/63 H Pulse Oximetry 97 93 93 Oxygen Delivery Room Air Fraction of Inspired Oxygen 21 09/25/24 21:19 09/26/24 04:45 09/26/24 09:07 Temperature 97.7 F 98.2 F Pulse Rate 84 73 68 Respiratory Rate 16 16 Blood Pressure 168/60 H 160/45 H Pulse Oximetry 96 98 Oxygen Delivery Fraction of Inspired Oxygen 09/26/24 09:10 Temperature Pulse Rate 68 Respiratory Rate Blood Pressure Pulse Oximetry Oxygen Delivery Fraction of Inspired Oxygen Intake/Output Intake/Output: Intake & Output 09/23/24 09/24/24 09/25/24 09/26/24 23:59 23:59 23:59 23:59 Intake Total 2100 2620 3043.3 1450 Output Total 1450 2350 2450 700 Balance 650 270 593.3 750 Meds/Results Medications: Active Medications Generic Name Dose Route Start Last Admin Trade Name Freq PRN Reason Stop Dose Admin Acetaminophen 650 mg 09/23/24 12:21 09/23/24 12:31 Acetaminophen 650 Mg Suppository RECTAL 650 mg Q6H PRN Administration Mild Pain (1-3) or Fever Aspirin 81 mg 09/22/24 09:00 09/26/24 09:10 Aspirin 81 Mg Enteric Tablet PO 81 mg BID ELIJAH Administration Atorvastatin Calcium 80 mg 09/21/24 13:30 09/26/24 09:10 Atorvastatin 40 Mg Tablet PO 80 mg DAILY ELIJAH Administration Dextrose 12.5 gm 09/21/24 00:14 Dextrose 50% 25 Gm/50 Ml Syringe IV PUSH PRN PRN Hypoglycemia Protocol Glucagon 1 mg 09/21/24 00:14 Glucagon For Inj 1 Mg Vial IM PRN PRN Hypoglycemia Protocol Glucose 15 gm 09/21/24 00:14 Glucose Oral Gel 15 Gm Of Glucse In 37.5 Gm Tube PO PRN PRN Hypoglycemia Protocol Hydralazine HCl 10 mg 09/23/24 13:32 Hydralazine Hcl 20 Mg/Ml Vial IV PUSH Q6H PRN Blood Pressure - High Dextrose 1,000 mls @ 100 mls/hr 09/21/24 00:14 Dextrose 5% 1,000 Ml IVPB PRN PRN Hypoglycemia Protocol Piperacillin Sod/Tazobactam 50 mls @ 100 mls/hr 09/23/24 10:00 09/26/24 09:10 Sod 3.375 gm/ Sodium Chloride IVPB 100 mls/hr Q6H ELIJAH Administration Sodium Chloride 1,000 mls @ 100 mls/hr 09/23/24 12:25 09/26/24 09:11 Normal Saline Iv IV CONT 100 mls/hr .Q10H ELIJAH Administration Vancomycin HCl 1,750 mg in 500 mls @ 250 mls/hr 09/25/24 14:00 09/26/24 02:26 Vancomycin 1,750 Mg/Ns 500 Ml IVPB 250 mls/hr Q12H ELIJAH Administration Insulin Aspart 4 - 8 units 09/21/24 08:00 09/26/24 09:11 Insulin Aspart (*Bkc) 100 Units/Ml SUB-Q Not Given TIDWM [facility] Protocol Insulin Aspart 2 - 4 units 09/21/24 21:00 09/25/24 21:19 Insulin Aspart (*Bkc) 100 Units/Ml SUB-Q Not Given HS ELIJAH Protocol Insulin Aspart 6 units 09/21/24 12:00 09/26/24 09:11 Insulin Aspart (*Bkc) 100 Units/Ml 0.05 units/kg (6 units) 6 units SUB-Q Administration TIDWM [facility] Insulin Glargine 30 units 09/22/24 21:00 09/25/24 21:19 Insulin Glargine (*Bkc) 100 Units/Ml SUB-Q 30 units HS ELIJAH Administration Lisinopril 2.5 mg 09/23/24 09:00 09/26/24 09:10 Lisinopril 2.5 Mg Tablet PO 2.5 mg QAM ELIJAH Administration Metoprolol Tartrate 12.5 mg 09/22/24 09:00 09/26/24 09:10 Metoprolol Tartrate 12.5 Mg Tablet PO 12.5 mg Q12HR ELIJAH Administration Radiology Results: ITS Impressions Chest X-Ray 09/20/24 20:34 IMPRESSION: No focal infiltrate or effusion. Abdomen/Pelvis CT 09/20/24 23:03 IMPRESSION: Fatty infiltration of a markedly enlarged liver. Cholelithiasis. Findings caudal to the tail of the pancreas for which an early pseudocyst formation versus carcinoid is suspected. Nonobstructing stones within the bilateral kidneys. Chest CTA 09/21/24 15:12 IMPRESSION: 1. No pulmonary embolism. 2. No acute cardiopulmonary pathology. 3. Fat infiltration of the liver. 4. Cholelithiasis. 5. Left adrenal adenoma. No follow-up advised unless clinically warranted. MRCP 09/22/24 13:24 IMPRESSION: 1. Cholelithiasis without choledocholithiasis or biliary dilation. 2. Hepatomegaly with prominent diffuse hepatic steatosis. 3. 2.1 x 1.2 cm likely pseudocyst related to prior acute pancreatitis along the tail of the pancreas. 4. Very small sliding-type hiatal hernia. Head CT 09/23/24 11:27 Impression: No acute intracranial hemorrhage or suspicious mass effect. Brain MRI 09/23/24 12:08 IMPRESSION: 1. Normal for age brain. No acute intracranial process. Hepatobiliary Scan Nuclear Medicine 09/23/24 13:38 IMPRESSION: 1. Severe hepatocellular dysfunction with no excretion of gallbladder activity rendering assessment for cystic duct obstruction/acute cholecystitis nondiagnostic. Abdomen Ultrasound 09/24/24 15:26 IMPRESSION: Fat infiltration of the liver. Cyst in the left lobe of the liver. Hypoechoic area in the dome of the liver with vascularity which may represent a hemangioma versus a mass. Follow-up and further evaluation advised. Otherwise, normal limited abdominal ultrasound. Labs Labs: Laboratory Results - last 24 hr 09/25/24 09/25/24 09/25/24 11:16 13:00 17:10 Sodium Potassium Chloride Carbon Dioxide Anion Gap BUN Creatinine Estim Creat Clear Calc Estimated GFR Glucose POC Capillary Glucose 131 H 118 H Calcium Total Bilirubin AST ALT Alkaline Phosphatase Total Protein Albumin Vancomycin Trough 7.6 L 09/25/24 09/26/24 09/26/24 21:15 05:49 07:45 Sodium 138 Potassium 3.5 Chloride 108 H Carbon Dioxide 23 Anion Gap 7 BUN 9 Creatinine 1.17 Estim Creat Clear Calc 68 Estimated GFR > 60 Glucose 169 H POC Capillary Glucose 111 H 187 H Calcium 8.1 L Total Bilirubin 1.3 AST 366 H ALT 236 H Alkaline Phosphatase 157 H Total Protein 6.8 Albumin 3.1 L Vancomycin Trough
--- NOTE | 2024-09-26 10:37 | PM.IMPN ---
Progress Note: A&P Assessment and Plan (1) Non-ST elevation NM (NSTEMI): Code(s): I21.4 - Non-ST elevation (NSTEMI) myocardial infarction Status: Acute Plan Patient is a 69-year-old male who presents emergency department this evening via EMS complaining of generalized weakness. NSTEMI Upon arrival to ED, patient was found have elevated troponin that is trending up, EKG shows sinus rhythm, no specific ST or T-wave changes, Pending echocardiogram Telemetry monitoring Aspirin 325 mg once and 81 mg daily p.o. Consult product coordinator for evaluation treatment patent coronary arteries by cardiac catheterization Continue aspirin 81 mg daily p.o., Plavix 75 mg daily p.o. Uncontrolled diabetes, New onset diabetes glucose 342 on arrival Hemoglobin A1c 10.6 Patient is on sliding scale Start Lantus 20 units q.h.s. lispro 6 units a.c., increase lantus to 30 qhs 09/22 Now controlled in the target range Transaminitis, gallstone Total bilirubin 2.4, AST 487, ALT 402, CPK 319 CT abdomen showed gallstone, fatty liver 09/20 MRCP 1. Cholelithiasis without choledocholithiasis or biliary dilation. 2. Hepatomegaly with prominent diffuse hepatic steatosis. 3. 2.1 x 1.2 cm likely pseudocyst related to prior acute pancreatitis along the tail of the pancreas. 4. Very small sliding-type hiatal hernia. Consult GI and general surgeon for evaluation treatment Total bilirubin is trending up, liver enzymes trending up. Severe hepatocellular dysfunction with no excretion of gallbladder activity rendering assessment for cystic duct obstruction/acute cholecystitis nondiagnostic. f/u abd us. Forty management per general surgeon 09/24 Patient is afebrile overnight 09/25 Total bilirubin and liver enzymes trending down 09/26: Total repeat is trending down, liver enzyme persists, no obvious biliary obstruction. Unclear etiologies. Consult GI for evaluation treatment regarding elevated liver enzymes. Patient may need liver biopsy for diagnosis Appreciate general surgeon and GI consultation sepsis low-grade temperature, tachycardia and lactic acidosis of 4. significant transaminitis and hyperbilirubinemia, chronic immunosuppressive therapy for psoriatic arthritis. lactic acid level, blood cultures negative of COVID flu and RSV PCR. 1 of the 2 blood culture grew Klebsiella oxytoca Possible due to intra-abdominal infection Started Zosyn IV and vancomycin 09/23 Repeat blood culture no growth so far resolved change to Augmentin p.o. Acute encephalopathy Patient confused was minimally responsive to verbal commands CT head shows no acute intracranial hemorrhage of mass effect, the ventricle or enlarged MRI showed Normal for age brain. No acute intracranial process. Possible due to sepsis Started fluid resuscitation, vancomycin and Zosyn 09/23. Currently patient is alert oriented x3, possible encephalopathy due to sepsis, no focal deficit 09/24 Alert oriented x3 no focal deficit 09/25 Subjective Date/time seen: 09/26/24 10:37 Interval history: I saw and examined patient today. Patient feels better today, appetite improving, denies abdomen pain. Patient still has general weakness. Able to ambulate with assistance of has a therapist Patient is afebrile overnight Total bilirubin is trending down and liver enzymes a still high Exam Narrative: GENERAL: Pleasant, in no acute distress. Well-nourished. - EYES: EOMI. Anicteric. - HENT: Moist mucous membranes. - LUNGS: Clear to auscultation bilaterally, no wheezing, rhonchi, or rales. - CARDIOVASCULAR: Regular rate and rhythm. No murmur. No JVD. - ABDOMEN: Soft, non-tender and non-distended. No palpable masses. - EXTREMITIES: No edema. Peripheral pulses 2+. Non-tender. - NEUROLOGIC: No focal neurological deficits. CN II-XII grossly intact. - PSYCHIATRIC: Awake, Alert and oriented x 3. Appropriate mood and affect. - SKIN: No rashes or lesions. Warm. - LYMPH: No cervical lymphadenopathy. Objective Data Vital Signs Vital Signs: Vital Signs - 24 hr 09/25/24 14:00 09/25/24 21:10 09/25/24 21:10 Temperature 98.6 F 98.3 F Pulse Rate 69 84 84 Respiratory Rate 20 20 20 Blood Pressure 144/45 H 169/63 H Pulse Oximetry 97 93 93 Oxygen Delivery Room Air Fraction of Inspired Oxygen 21 09/25/24 21:19 09/26/24 04:45 09/26/24 09:07 Temperature 97.7 F 98.2 F Pulse Rate 84 73 68 Respiratory Rate 16 16 Blood Pressure 168/60 H 160/45 H Pulse Oximetry 96 98 Oxygen Delivery Fraction of Inspired Oxygen 09/26/24 09:10 Temperature Pulse Rate 68 Respiratory Rate Blood Pressure Pulse Oximetry Oxygen Delivery Fraction of Inspired Oxygen Intake/Output Intake/Output: Intake & Output 09/23/24 09/24/24 09/25/24 09/26/24 23:59 23:59 23:59 23:59 Intake Total 2100 2620 3043.3 1570 Output Total 1450 2350 2450 700 Balance 650 270 593.3 870 Meds/Results Medications: Active Medications Generic Name Dose Route Start Last Admin Trade Name Freq PRN Reason Stop Dose Admin Acetaminophen 650 mg 09/23/24 12:21 09/23/24 12:31 Acetaminophen 650 Mg Suppository RECTAL 650 mg Q6H PRN Administration Mild Pain (1-3) or Fever Aspirin 81 mg 09/22/24 09:00 09/26/24 09:10 Aspirin 81 Mg Enteric Tablet PO 81 mg BID ELIJAH Administration Atorvastatin Calcium 80 mg 09/21/24 13:30 09/26/24 09:10 Atorvastatin 40 Mg Tablet PO 80 mg DAILY ELIJAH Administration Dextrose 12.5 gm 09/21/24 00:14 Dextrose 50% 25 Gm/50 Ml Syringe IV PUSH PRN PRN Hypoglycemia Protocol Glucagon 1 mg 09/21/24 00:14 Glucagon For Inj 1 Mg Vial IM PRN PRN Hypoglycemia Protocol Glucose 15 gm 09/21/24 00:14 Glucose Oral Gel 15 Gm Of Glucse In 37.5 Gm Tube PO PRN PRN Hypoglycemia Protocol Hydralazine HCl 10 mg 09/23/24 13:32 Hydralazine Hcl 20 Mg/Ml Vial IV PUSH Q6H PRN Blood Pressure - High Dextrose 1,000 mls @ 100 mls/hr 09/21/24 00:14 Dextrose 5% 1,000 Ml IVPB PRN PRN Hypoglycemia Protocol Piperacillin Sod/Tazobactam 50 mls @ 100 mls/hr 09/23/24 10:00 09/26/24 09:10 Sod 3.375 gm/ Sodium Chloride IVPB 100 mls/hr Q6H ELIJAH Administration Sodium Chloride 1,000 mls @ 100 mls/hr 09/23/24 12:25 09/26/24 09:11 Normal Saline Iv IV CONT 100 mls/hr .Q10H ELIJAH Administration Vancomycin HCl 1,750 mg in 500 mls @ 250 mls/hr 09/25/24 14:00 09/26/24 02:26 Vancomycin 1,750 Mg/Ns 500 Ml IVPB 250 mls/hr Q12H ELIJAH Administration Insulin Aspart 4 - 8 units 09/21/24 08:00 09/26/24 09:11 Insulin Aspart (*Bkc) 100 Units/Ml SUB-Q Not Given TIDWM [facility] Protocol Insulin Aspart 2 - 4 units 09/21/24 21:00 09/25/24 21:19 Insulin Aspart (*Bkc) 100 Units/Ml SUB-Q Not Given HS [facility] Protocol Insulin Aspart 6 units 09/21/24 12:00 09/26/24 09:11 Insulin Aspart (*Bkc) 100 Units/Ml 0.05 units/kg (6 units) 6 units SUB-Q Administration TIDWM ELIJAH Insulin Glargine 30 units 09/22/24 21:00 09/25/24 21:19 Insulin Glargine (*Bkc) 100 Units/Ml SUB-Q 30 units HS ELIJAH Administration Lisinopril 2.5 mg 09/23/24 09:00 09/26/24 09:10 Lisinopril 2.5 Mg Tablet PO 2.5 mg QAM ELIJAH Administration Metoprolol Tartrate 12.5 mg 09/22/24 09:00 09/26/24 09:10 Metoprolol Tartrate 12.5 Mg Tablet PO 12.5 mg Q12HR ELIJAH Administration Radiology Results: ITS Impressions Chest X-Ray 09/20/24 20:34 IMPRESSION: No focal infiltrate or effusion. Abdomen/Pelvis CT 09/20/24 23:03 IMPRESSION: Fatty infiltration of a markedly enlarged liver. Cholelithiasis. Findings caudal to the tail of the pancreas for which an early pseudocyst formation versus carcinoid is suspected. Nonobstructing stones within the bilateral kidneys. Chest CTA 09/21/24 15:12 IMPRESSION: 1. No pulmonary embolism. 2. No acute cardiopulmonary pathology. 3. Fat infiltration of the liver. 4. Cholelithiasis. 5. Left adrenal adenoma. No follow-up advised unless clinically warranted. MRCP 09/22/24 13:24 IMPRESSION: 1. Cholelithiasis without choledocholithiasis or biliary dilation. 2. Hepatomegaly with prominent diffuse hepatic steatosis. 3. 2.1 x 1.2 cm likely pseudocyst related to prior acute pancreatitis along the tail of the pancreas. 4. Very small sliding-type hiatal hernia. Head CT 09/23/24 11:27 Impression: No acute intracranial hemorrhage or suspicious mass effect. Brain MRI 09/23/24 12:08 IMPRESSION: 1. Normal for age brain. No acute intracranial process. Hepatobiliary Scan Nuclear Medicine 09/23/24 13:38 IMPRESSION: 1. Severe hepatocellular dysfunction with no excretion of gallbladder activity rendering assessment for cystic duct obstruction/acute cholecystitis nondiagnostic. Abdomen Ultrasound 09/24/24 15:26 IMPRESSION: Fat infiltration of the liver. Cyst in the left lobe of the liver. Hypoechoic area in the dome of the liver with vascularity which may represent a hemangioma versus a mass. Follow-up and further evaluation advised. Otherwise, normal limited abdominal ultrasound. Labs Labs: Laboratory Results - last 24 hr 09/25/24 09/25/24 09/25/24 11:16 13:00 17:10 Sodium Potassium Chloride Carbon Dioxide Anion Gap BUN Creatinine Estim Creat Clear Calc Estimated GFR Glucose POC Capillary Glucose 131 H 118 H Calcium Total Bilirubin AST ALT Alkaline Phosphatase Total Protein Albumin Vancomycin Trough 7.6 L 09/25/24 09/26/24 09/26/24 21:15 05:49 07:45 Sodium 138 Potassium 3.5 Chloride 108 H Carbon Dioxide 23 Anion Gap 7 BUN 9 Creatinine 1.17 Estim Creat Clear Calc 68 Estimated GFR > 60 Glucose 169 H POC Capillary Glucose 111 H 187 H Calcium 8.1 L Total Bilirubin 1.3 AST 366 H ALT 236 H Alkaline Phosphatase 157 H Total Protein 6.8 Albumin 3.1 L Vancomycin Trough
--- NOTE | 2024-09-26 10:50 | P.DS_ITS ---
DS: Summary Time Spent with Patient Time attestation: Total time spent providing and/or coordinating discharge services: Exam Narrative: GENERAL: Pleasant, in no acute distress. Well-nourished. - EYES: EOMI. Anicteric. - HENT: Moist mucous membranes. - LUNGS: Clear to auscultation bilateral ly, no wheezing, rhonchi, or rales. - CARDIOVASCULAR: Regular rate and rhyth m. No murmur. No JVD. - ABDOMEN: Soft, non-tender and non-dist ended. No palpable masses. - EXTREMITIES: No edema. Peripheral puls es 2+. Non-tender. - NEUROLOGIC: No focal neurological defi cits. CN II-XII grossly intact. - PSYCHIATRIC: Awake, Alert and oriented x 3. Appropriate mood and affect. - SKIN: No rashes or lesions. Warm. - LYMPH: No cervical lymphadenopathy. DS: Data Data Completed and Pending Labs on day of discharge: Labs from last 24 hours 09/26/24 09/26/24 09/25/24 07:45 05:49 21:15 Sodium 138 Potassium 3.5 Chloride 108 H Carbon Dioxide 23 Anion Gap 7 BUN 9 Creatinine 1.17 Estim Creat Clear Calc 68 Estimated GFR > 60 Glucose 169 H POC Capillary Glucose 187 H 111 H Calcium 8.1 L Total Bilirubin 1.3 AST 366 H ALT 236 H Alkaline Phosphatase 157 H Total Protein 6.8 Albumin 3.1 L Vancomycin Trough 09/25/24 09/25/24 09/25/24 17:10 13:00 11:16 Sodium Potassium Chloride Carbon Dioxide Anion Gap BUN Creatinine Estim Creat Clear Calc Estimated GFR Glucose POC Capillary Glucose 118 H 131 H Calcium Total Bilirubin AST ALT Alkaline Phosphatase Total Protein Albumin Vancomycin Trough 7.6 L Preliminary micro results at discharge 09/23/24 09:52 Blood Culture - Preliminary Blood 09/23/24 09:47 Blood Culture - Preliminary Blood 09/21/24 04:20 Blood Culture - Preliminary Blood Klebsiella oxytoca 09/21/24 04:34 Blood Culture - Preliminary Blood Klebsiella oxytoca Discharge Plan Discharge Consulting providers: Griselda Juarez; Bib Saab Patient Language: [place] Discharge Medications: No Action ustekinumab [Stelara] 90 mg/mL syringe 90 mg SUBCUT [id number] Patient Comments: pt took inJune Rx Instructions: subcutaneously; Date of admission: 09/21/24 00:29 Primary Care Provider: Roberto Simon Admitting Provider: Lisa Robison Attending physician on admission: Lisa Robison Condition: Improved
[2024-09-26 10:53] LABS: Hematocrit 39.3 % (42.0-52.0); Hemoglobin 12.1 g/dL (14.0-18.0); Mean Corpuscular HGB Conc 30.8 g/dl (32-36); Mean Corpuscular Hemoglobin 29.9 pg (26-34); Mean Corpuscular Volume 97.0 fl (80-100); Platelet Count Result 126 k/mm3 (150-375); Red Blood Count 4.05 M/mm3 (4.6-6.20); White Blood Count 4.1 K/mm3 (4.5-10.0)
--- NOTE | 2024-09-26 12:31 | PM.PNGS ---
Progress Note: A&P Assessment and Plan (1) Gram-negative bacteremia: Code(s): R78.81 - Bacteremia Status: Acute Assessment and Plan: 2 sets of blood cultures have grown Klebsiella. Sensitivities are not back as yet. Patient responded well to Zosyn and has since been converted to oral Augmentin. Reason for the bacteremia is unclear to me. I spoke with the patient and his this morning who were under the impression that this was due to his gallbladder or cholecystitis. As per the notes from 09/23/2024, HIDA scan showed uptake, but no excretion, of the radioisotope in the liver suggesting severe hepatocellular dysfunction. Without excretion of the radioisotope, no diagnosis of acute cholecystitis can be made. I had discussed this patient with Dr. Woodard, radiologist, on Thursday and last week. Plans were to place ultrasound-guided cholecystostomy if cholecystitis was noted. HIDA scan indicates this is primarily hepatic dysfunction causing the abnormal transaminases, not an obstructive cause. All imaging of the gallbladder on CT scan, MRCP, and U/S show no evidence of cholecystitis or common duct stones. The possible pseudocyst at tail of the pancreas seems unlikely to be a source of bacteremia as well. I called Dr. Mcgrath this morning and discussed this with him. Unless additional or repeat testing shows different results, there is no plan for cholecystectomy or cholecystostomy tube placement. Recommend continued antibiotic therapy for bacteremia. Repeat blood cultures are negative so far. Source of bacteremia remains unclear to me. (2) Transaminitis: Code(s): R74.01 - Elevation of levels of liver transaminase levels Status: Acute Assessment and Plan: Improving. HIDA scan suggests hepatic primary disfunction. Would recommend GI evaluate since evidence now points to primary hepatic dysfunction, not obstructive causes. Discussed this with Dr. Mcgrath. (3) Cholelithiasis: Qualifiers: Cholelithiasis location: gallbladder Cholecystitis presence: with cholecystitis Cholecystitis acuity: acute and chronic Biliary obstruction: with biliary obstruction Qualified Code(s): K80.13 - Calculus of gallbladder with acute and chronic cholecystitis with obstruction Code(s): K80.20 - Calculus of gallbladder without cholecystitis without obstruction Status: Acute Assessment and Plan: Noted on CT scan abdomen pelvis as well as MRCP. Gallbladder itself looked normal on MRCP. There were no common bile duct stones on MRCP. Common bile duct was not dilated either. Interestingly, U/S done 09/24/24 did not show cholelithiasis but did, also, show no sign of cholecystitis. (4) Pancreatic pseudocyst: Code(s): K86.3 - Pseudocyst of pancreas Status: Acute Assessment and Plan: Patient noted to have acute pancreatitis 10 months ago but left the emergency room instead of being admitted. He was also noted to have gallstones at that time. MRCP suggest pancreatic pseudocyst, small, in the tail of the pancreas. No evidence of abscess or pancreatic necrosis on MRI or CT scan. Unlikely to be playing a role in his bacteremia and transaminitis. (5) Coronary artery disease: Qualifiers: Coronary Disease-Associated Artery/Lesion type: [place] artery [place] vs. transplanted heart: [place] heart Associated angina: without angina Qualified Code(s): I25.10 - Atherosclerotic heart disease of [place] coronary artery without angina pectoris Code(s): I25.10 - Atherosclerotic heart disease of [place] coronary artery without angina pectoris Status: Acute Assessment and Plan: Multi-vessel, non occlusive coronary artery disease. Plan is to place on anti-platelet agent clopidogrel for 1 year. This has been started. (6) Type 2 diabetes mellitus with hyperglycemia: Qualifiers: Diabetes mellitus senior living insulin use: without senior living use Qualified Code(s): E11.65 - Type 2 diabetes mellitus with hyperglycemia Code(s): E11.65 - Type 2 diabetes mellitus with hyperglycemia Status: Acute Assessment and Plan: Newly diagnosed with diabetes, hemoglobin A1c was 10 on admission. (7) Adult failure to thrive: Code(s): R62.7 - Adult failure to thrive Status: Acute Assessment and Plan: History shows he does not leave the house, he is on the couch or the bed nearly all the time. He has been getting weaker. Has been non compliant in the past. Hopefully, treatment of medical illnesses found at this admission will improve this. Mental illness is also certainly a possibility. Patient being evaluated for [facility] at discharge. If not accepted there, strongly recommend SNF rather than return home. Subjective Subjective Date/Time Seen: 09/26/24 12:31 Patient reports: feels better, pain is less (Denies any pain at all), tolerating a regular diet (Diabetic diet), bowel movement, afebrile and other (Still complains of weakness) Review of Systems Review of Systems: All systems reviewed & are unremarkable except as noted in HPI and below (HPI) Exam Const: General: cooperative, comfortable, alert and awake (Conversant) Nutritional Appearance: obese GI: Inspection: normal to inspection, non-distended, obesity and no visible herniation GI Palp: Yes Soft to palpation, No Tenderness to palpation present (GI) and No Palpable mass present Objective Data Vital Signs Vital Signs: Vital Signs - 24 hr 09/25/24 14:00 09/25/24 21:10 09/25/24 21:10 Temperature 37.0 C 36.8 C Pulse Rate 69 84 84 Respiratory Rate 20 20 20 Blood Pressure 144/45 H 169/63 H Pulse Oximetry 97 93 93 Oxygen Delivery Room Air Fraction of Inspired Oxygen 21 09/25/24 21:19 09/26/24 04:45 09/26/24 09:07 Temperature 36.5 C 36.8 C Pulse Rate 84 73 68 Respiratory Rate 16 16 Blood Pressure 168/60 H 160/45 H Pulse Oximetry 96 98 Oxygen Delivery Fraction of Inspired Oxygen 09/26/24 09:10 09/26/24 09:11 Temperature Pulse Rate 68 68 Respiratory Rate 16 Blood Pressure Pulse Oximetry 98 Oxygen Delivery Room Air Fraction of Inspired Oxygen 21 Intake/Output Intake/Output: Intake & Output 09/23/24 09/24/24 09/25/24 09/26/24 23:59 23:59 23:59 23:59 Intake Total 2100 2620 3043.3 1570 Output Total 1450 2350 2450 700 Balance 650 270 593.3 870 Meds/Results Medications: Active Medications Generic Name Dose Route Start Last Admin Trade Name Freq PRN Reason Stop Dose Admin Acetaminophen 650 mg 09/23/24 12:21 09/23/24 12:31 Acetaminophen 650 Mg Suppository RECTAL 650 mg Q6H PRN Administration Mild Pain (1-3) or Fever Amoxicillin/Clavulanate Potassium 1 tablet 09/26/24 21:00 Amoxicillin/Clavulanate K 875-125 Mg Tab PO Q12HR ELIJAH Aspirin 81 mg 09/22/24 09:00 09/26/24 09:10 Aspirin 81 Mg Enteric Tablet PO 81 mg BID ELIJAH Administration Atorvastatin Calcium 80 mg 09/21/24 13:30 09/26/24 09:10 Atorvastatin 40 Mg Tablet PO 80 mg DAILY EILJAH Administration Clopidogrel Bisulfate 75 mg 09/27/24 09:00 Clopidogrel Bisulfate 75 Mg Tablet PO QAM ELIJAH Dextrose 12.5 gm 09/21/24 00:14 Dextrose 50% 25 Gm/50 Ml Syringe IV PUSH PRN PRN Hypoglycemia Protocol Glucagon 1 mg 09/21/24 00:14 Glucagon For Inj 1 Mg Vial IM PRN PRN Hypoglycemia Protocol Glucose 15 gm 09/21/24 00:14 Glucose Oral Gel 15 Gm Of Glucse In 37.5 Gm Tube PO PRN PRN Hypoglycemia Protocol Hydralazine HCl 10 mg 09/23/24 13:32 Hydralazine Hcl 20 Mg/Ml Vial IV PUSH Q6H PRN Blood Pressure - High Dextrose 1,000 mls @ 100 mls/hr 09/21/24 00:14 Dextrose 5% 1,000 Ml IVPB PRN PRN Hypoglycemia Protocol Sodium Chloride 1,000 mls @ 100 mls/hr 09/23/24 12:25 09/26/24 09:11 Normal Saline Iv IV CONT 100 mls/hr .Q10H ELIJAH Administration Insulin Aspart 4 - 8 units 09/21/24 08:00 09/26/24 12:17 Insulin Aspart (*Bkc) 100 Units/Ml SUB-Q Not Given TIDWM [facility] Protocol Insulin Aspart 2 - 4 units 09/21/24 21:00 09/25/24 21:19 Insulin Aspart (*Bkc) 100 Units/Ml SUB-Q Not Given HS [facility] Protocol Insulin Aspart 6 units 09/21/24 12:00 09/26/24 12:19 Insulin Aspart (*Bkc) 100 Units/Ml 0.05 units/kg (6 units) 6 units SUB-Q Administration TIDWM [facility] Insulin Glargine 30 units 09/22/24 21:00 09/25/24 21:19 Insulin Glargine (*Bkc) 100 Units/Ml SUB-Q 30 units HS ELIJAH Administration Lisinopril 2.5 mg 09/23/24 09:00 09/26/24 09:10 Lisinopril 2.5 Mg Tablet PO 2.5 mg QAM ELIJAH Administration Metoprolol Tartrate 12.5 mg 09/22/24 09:00 09/26/24 09:10 Metoprolol Tartrate 12.5 Mg Tablet PO 12.5 mg Q12HR ELIJAH Administration Radiology Results: ITS Impressions Chest X-Ray 09/20/24 20:34 IMPRESSION: No focal infiltrate or effusion. Abdomen/Pelvis CT 09/20/24 23:03 IMPRESSION: Fatty infiltration of a markedly enlarged liver. Cholelithiasis. Findings caudal to the tail of the pancreas for which an early pseudocyst formation versus carcinoid is suspected. Nonobstructing stones within the bilateral kidneys. Chest CTA 09/21/24 15:12 IMPRESSION: 1. No pulmonary embolism. 2. No acute cardiopulmonary pathology. 3. Fat infiltration of the liver. 4. Cholelithiasis. 5. Left adrenal adenoma. No follow-up advised unless clinically warranted. MRCP 09/22/24 13:24 IMPRESSION: 1. Cholelithiasis without choledocholithiasis or biliary dilation. 2. Hepatomegaly with prominent diffuse hepatic steatosis. 3. 2.1 x 1.2 cm likely pseudocyst related to prior acute pancreatitis along the tail of the pancreas. 4. Very small sliding-type hiatal hernia. Head CT 09/23/24 11:27 Impression: No acute intracranial hemorrhage or suspicious mass effect. Brain MRI 09/23/24 12:08 IMPRESSION: 1. Normal for age brain. No acute intracranial process. Hepatobiliary Scan Nuclear Medicine 09/23/24 13:38 IMPRESSION: 1. Severe hepatocellular dysfunction with no excretion of gallbladder activity rendering assessment for cystic duct obstruction/acute cholecystitis nondiagnostic. Abdomen Ultrasound 09/24/24 15:26 IMPRESSION: Fat infiltration of the liver. Cyst in the left lobe of the liver. Hypoechoic area in the dome of the liver with vascularity which may represent a hemangioma versus a mass. Follow-up and further evaluation advised. Otherwise, normal limited abdominal ultrasound. Labs Labs: Laboratory Results - last 24 hr 09/25/24 09/25/24 09/25/24 13:00 17:10 21:15 WBC RBC Hgb Hct MCV MCH MCHC RDW Plt Count MPV Sodium Potassium Chloride Carbon Dioxide Anion Gap BUN Creatinine Estim Creat Clear Calc Estimated GFR Glucose POC Capillary Glucose 118 H 111 H Calcium Total Bilirubin AST ALT Alkaline Phosphatase Total Protein Albumin Vancomycin Trough 7.6 L 09/26/24 09/26/24 09/26/24 05:46 05:49 07:45 WBC 4.1 L RBC 4.05 L Hgb 12.1 L Hct 39.3 L MCV 97.0 MCH 29.9 MCHC 30.8 L RDW 13.7 Plt Count 126 L MPV 10.1 Sodium 138 Potassium 3.5 Chloride 108 H Carbon Dioxide 23 Anion Gap 7 BUN 9 Creatinine 1.17 Estim Creat Clear Calc 68 Estimated GFR > 60 Glucose 169 H POC Capillary Glucose 187 H Calcium 8.1 L Total Bilirubin 1.3 AST 366 H ALT 236 H Alkaline Phosphatase 157 H Total Protein 6.8 Albumin 3.1 L Vancomycin Trough 09/26/24 11:44 WBC RBC Hgb Hct MCV MCH MCHC RDW Plt Count MPV Sodium Potassium Chloride Carbon Dioxide Anion Gap BUN Creatinine Estim Creat Clear Calc Estimated GFR Glucose POC Capillary Glucose 144 H Calcium Total Bilirubin AST ALT Alkaline Phosphatase Total Protein Albumin Vancomycin Trough
--- NOTE | 2024-09-26 17:25 | WPDGIPROGNO ---
Progress Note: A&P Assessment and Plan (1) Transaminitis: Code(s): R74.01 - Elevation of levels of liver transaminase levels Status: Acute Assessment and Plan: it seems that patient has underlying fatty liver and this hospitalization admitted with sepsis and Klebsiella bacteremia now on antibiotics- this can easily explain elevated liver enzymes on admission had elevated bili 3 but normalized since, still elevated transaminases but in 200's, hepatitis negative mrcp no stones or filling defects in bile duct surgery has been on board because cholelithiasis I would recommend to repeat liver enzymes as outpatient and then he can follow up in office, if still elevated numbers we can complete full work up (2) Hepatic steatosis: Onset Date: 09/2024 Code(s): K76.0 - Fatty (change of) liver, not elsewhere classified Status: Acute (3) Cholelithiasis: Qualifiers: Cholelithiasis location: gallbladder Cholecystitis presence: with cholecystitis Cholecystitis acuity: acute and chronic Biliary obstruction: with biliary obstruction Qualified Code(s): K80.13 - Calculus of gallbladder with acute and chronic cholecystitis with obstruction Code(s): K80.20 - Calculus of gallbladder without cholecystitis without obstruction Status: Acute (4) Gram-negative bacteremia: Code(s): R78.81 - Bacteremia Status: Acute Assessment and Plan: it is been treated (5) SIRS (systemic inflammatory response syndrome): Code(s): R65.10 - Systemic inflammatory response syndrome (SIRS) of non-infectious origin without acute organ dysfunction Status: Acute Assessment and Plan: resolved Subjective Date/time seen: 09/26/24 17:25 Interval history: we are called again to reevaluate patient because elevated liver enzymes he denies abdominal pain now, no nausea, doing well and he is having fish for dinner Review of Systems Review of Systems: All systems reviewed & are unremarkable except as noted in HPI and below Exam Const: General: comfortable and no acute distress HENMT: Face/Nose/Sinus: Normal nares present Eyes: General: appearance normal, both eyes and all related structures Neck: Neck: no JVD Resp: Auscultation: clear to auscultation bilaterally Cardio: Rate: regular rate Rhythm: regular rhythm GI: Inspection: non-distended GI Palp: Yes Soft to palpation and No Tenderness to palpation present (GI) Auscultation: normal bowel sounds Skin: General skin exam: normal color Neuro: Speech: normal speech Extrem: General: normal to inspection Psych: Mental Status: mental status grossly normal Objective Data Vital Signs Vital Signs: Vital Signs - 24 hr 09/25/24 21:10 09/25/24 21:10 09/25/24 21:19 Temperature 98.3 F Pulse Rate 84 84 84 Respiratory Rate 20 20 Blood Pressure 169/63 H Pulse Oximetry 93 93 Oxygen Delivery Room Air Fraction of Inspired Oxygen 21 09/26/24 04:45 09/26/24 09:07 09/26/24 09:10 Temperature 97.7 F 98.2 F Pulse Rate 73 68 68 Respiratory Rate 16 16 Blood Pressure 168/60 H 160/45 H Pulse Oximetry 96 98 Oxygen Delivery Fraction of Inspired Oxygen 09/26/24 09:11 09/26/24 14:00 09/26/24 15:17 Temperature 97.2 F L Pulse Rate 68 70 Respiratory Rate 16 16 Blood Pressure 141/43 H Pulse Oximetry 98 96 Oxygen Delivery Room Air Room Air Fraction of Inspired Oxygen 21 Intake/Output Intake/Output: Intake & Output 09/23/24 09/24/24 09/25/24 09/26/24 23:59 23:59 23:59 23:59 Intake Total 2100 2620 3043.3 1810 Output Total 1450 2350 2450 700 Balance 650 270 593.3 1110 Meds/Results Medications: Active Medications Generic Name Dose Route Start Last Admin Trade Name Freq PRN Reason Stop Dose Admin Acetaminophen 650 mg 09/23/24 12:21 09/23/24 12:31 Acetaminophen 650 Mg Suppository RECTAL 650 mg Q6H PRN Administration Mild Pain (1-3) or Fever Amoxicillin/Clavulanate Potassium 1 tablet 09/26/24 14:00 09/26/24 14:48 Amoxicillin/Clavulanate K 875-125 Mg Tab PO 1 tablet Q8HR ELIJAH Administration Aspirin 81 mg 09/22/24 09:00 09/26/24 16:44 Aspirin 81 Mg Enteric Tablet PO 81 mg BID ELIJAH Administration Atorvastatin Calcium 80 mg 09/21/24 13:30 09/26/24 09:10 Atorvastatin 40 Mg Tablet PO 80 mg DAILY ELIJAH Administration Clopidogrel Bisulfate 75 mg 09/27/24 09:00 Clopidogrel Bisulfate 75 Mg Tablet PO QAM [facility] Dextrose 12.5 gm 09/21/24 00:14 Dextrose 50% 25 Gm/50 Ml Syringe IV PUSH PRN PRN Hypoglycemia Protocol Glucagon 1 mg 09/21/24 00:14 Glucagon For Inj 1 Mg Vial IM PRN PRN Hypoglycemia Protocol Glucose 15 gm 09/21/24 00:14 Glucose Oral Gel 15 Gm Of Glucse In 37.5 Gm Tube PO PRN PRN Hypoglycemia Protocol Hydralazine HCl 10 mg 09/23/24 13:32 Hydralazine Hcl 20 Mg/Ml Vial IV PUSH Q6H PRN Blood Pressure - High Dextrose 1,000 mls @ 100 mls/hr 09/21/24 00:14 Dextrose 5% 1,000 Ml IVPB PRN PRN Hypoglycemia Protocol Sodium Chloride 1,000 mls @ 100 mls/hr 09/23/24 12:25 09/26/24 09:11 Normal Saline Iv IV CONT 100 mls/hr .Q10H ELIJAH Administration Insulin Aspart 4 - 8 units 09/21/24 08:00 09/26/24 17:02 Insulin Aspart (*Bkc) 100 Units/Ml SUB-Q Not Given TIDWM [facility] Protocol Insulin Aspart 2 - 4 units 09/21/24 21:00 09/25/24 21:19 Insulin Aspart (*Bkc) 100 Units/Ml SUB-Q Not Given HS [facility] Protocol Insulin Aspart 6 units 09/21/24 12:00 09/26/24 17:01 Insulin Aspart (*Bkc) 100 Units/Ml 0.05 units/kg (6 units) 6 units SUB-Q Administration TIDWM ELIJAH Insulin Glargine 30 units 09/22/24 21:00 09/25/24 21:19 Insulin Glargine (*Bkc) 100 Units/Ml SUB-Q 30 units HS ELIJAH Administration Lisinopril 2.5 mg 09/23/24 09:00 09/26/24 09:10 Lisinopril 2.5 Mg Tablet PO 2.5 mg QAM ELIJAH Administration Metoprolol Tartrate 12.5 mg 09/22/24 09:00 09/26/24 09:10 Metoprolol Tartrate 12.5 Mg Tablet PO 12.5 mg Q12HR ELIJAH Administration Radiology Results: ITS Impressions Chest X-Ray 09/20/24 20:34 IMPRESSION: No focal infiltrate or effusion. Abdomen/Pelvis CT 09/20/24 23:03 IMPRESSION: Fatty infiltration of a markedly enlarged liver. Cholelithiasis. Findings caudal to the tail of the pancreas for which an early pseudocyst formation versus carcinoid is suspected. Nonobstructing stones within the bilateral kidneys. Chest CTA 09/21/24 15:12 IMPRESSION: 1. No pulmonary embolism. 2. No acute cardiopulmonary pathology. 3. Fat infiltration of the liver. 4. Cholelithiasis. 5. Left adrenal adenoma. No follow-up advised unless clinically warranted. MRCP 09/22/24 13:24 IMPRESSION: 1. Cholelithiasis without choledocholithiasis or biliary dilation. 2. Hepatomegaly with prominent diffuse hepatic steatosis. 3. 2.1 x 1.2 cm likely pseudocyst related to prior acute pancreatitis along the tail of the pancreas. 4. Very small sliding-type hiatal hernia. Head CT 09/23/24 11:27 Impression: No acute intracranial hemorrhage or suspicious mass effect. Brain MRI 09/23/24 12:08 IMPRESSION: 1. Normal for age brain. No acute intracranial process. Hepatobiliary Scan Nuclear Medicine 09/23/24 13:38 IMPRESSION: 1. Severe hepatocellular dysfunction with no excretion of gallbladder activity rendering assessment for cystic duct obstruction/acute cholecystitis nondiagnostic. Abdomen Ultrasound 09/24/24 15:26 IMPRESSION: Fat infiltration of the liver. Cyst in the left lobe of the liver. Hypoechoic area in the dome of the liver with vascularity which may represent a hemangioma versus a mass. Follow-up and further evaluation advised. Otherwise, normal limited abdominal ultrasound. Labs Labs: Laboratory Results - last 24 hr 09/25/24 09/26/24 09/26/24 21:15 05:46 05:49 WBC 4.1 L RBC 4.05 L Hgb 12.1 L Hct 39.3 L MCV 97.0 MCH 29.9 MCHC 30.8 L RDW 13.7 Plt Count 126 L MPV 10.1 Sodium 138 Potassium 3.5 Chloride 108 H Carbon Dioxide 23 Anion Gap 7 BUN 9 Creatinine 1.17 Estim Creat Clear Calc 68 Estimated GFR > 60 Glucose 169 H POC Capillary Glucose 111 H Calcium 8.1 L Total Bilirubin 1.3 AST 366 H ALT 236 H Alkaline Phosphatase 157 H Total Protein 6.8 Albumin 3.1 L 09/26/24 09/26/24 09/26/24 07:45 11:44 16:52 WBC RBC Hgb Hct MCV MCH MCHC RDW Plt Count MPV Sodium Potassium Chloride Carbon Dioxide Anion Gap BUN Creatinine Estim Creat Clear Calc Estimated GFR Glucose POC Capillary Glucose 187 H 144 H 192 H Calcium Total Bilirubin AST ALT Alkaline Phosphatase Total Protein Albumin
[2024-09-26] MEDS: INSULIN GLARGINE (*BKC) 100 UNITS/ML 30 UNITS SUB-Q (20:56)
[2024-09-27] VITALS (8 sets, daily range): BP systolic 147–185; BP diastolic 53–70; PULSE 66–73; RESP 16–20; TEMP 36.2–36.6; O2SAT 94–97
[2024-09-27] MEDS: ASPIRIN 81 MG ENTERIC TABLET PO ×2 (08:44→17:36)
[2024-09-27] MEDS: METOPROLOL TARTRATE 12.5 MG TABLET PO ×2 (08:44→21:13)
[2024-09-27] MEDS: CLOPIDOGREL BISULFATE 75 MG TABLET PO (08:44)
[2024-09-27] MEDS: ATORVASTATIN 40 MG TABLET 80 MG PO (08:44)
[2024-09-27] MEDS: INSULIN ASPART (*BKC) 100 UNITS/ML 6 UNITS SUB-Q ×3 (08:45→17:37)
--- NOTE | 2024-09-27 09:57 | PM.PNGS ---
Progress Note: A&P Assessment and Plan (1) Gram-negative bacteremia: Code(s): R78.81 - Bacteremia Status: Acute Assessment and Plan: Blood cultures from 09/21 positive for Klebsiella oxytoca. Cultures from 09/23 with no growth preliminarily. WBC 4.1 today. Responded well to Zosyn and now on oral Augmentin. HIDA scan suggesting hepatocellular dysfunction. No imaging has suggested any gallbladder dysfunction. Pseudocyst of pancreas could also be considered as cause of bacteremia. Continue oral abx. No surgical intervention necessary. We will sign off at this time. (2) Transaminitis: Code(s): R74.01 - Elevation of levels of liver transaminase levels Status: Acute Assessment and Plan: Improving. HIDA scan suggests hepatic primary disfunction. Would recommend GI evaluate since evidence now points to primary hepatic dysfunction, not obstructive causes. (3) Cholelithiasis: Qualifiers: Cholelithiasis location: gallbladder Cholecystitis presence: with cholecystitis Cholecystitis acuity: acute and chronic Biliary obstruction: with biliary obstruction Qualified Code(s): K80.13 - Calculus of gallbladder with acute and chronic cholecystitis with obstruction Code(s): K80.20 - Calculus of gallbladder without cholecystitis without obstruction Status: Acute Assessment and Plan: Noted on CT scan abdomen pelvis as well as MRCP. Gallbladder itself looked normal on MRCP. There were no common bile duct stones on MRCP. Common bile duct was not dilated either. Interestingly, U/S done 09/24/24 did not show cholelithiasis but did, also, show no sign of cholecystitis. (4) Pancreatic pseudocyst: Code(s): K86.3 - Pseudocyst of pancreas Status: Acute Assessment and Plan: Patient noted to have acute pancreatitis 10 months ago but left the emergency room instead of being admitted. He was also noted to have gallstones at that time. MRCP suggest pancreatic pseudocyst, small, in the tail of the pancreas. No evidence of abscess or pancreatic necrosis on MRI or CT scan. Unlikely to be playing a role in his bacteremia and transaminitis. (5) Coronary artery disease: Qualifiers: Coronary Disease-Associated Artery/Lesion type: [place] artery [place] vs. transplanted heart: [place] heart Associated angina: without angina Qualified Code(s): I25.10 - Atherosclerotic heart disease of [place] coronary artery without angina pectoris Code(s): I25.10 - Atherosclerotic heart disease of [place] coronary artery without angina pectoris Status: Acute Assessment and Plan: Multi-vessel, non occlusive coronary artery disease. Plan is to place on anti-platelet agent clopidogrel for 1 year. This has been started. (6) Type 2 diabetes mellitus with hyperglycemia: Qualifiers: Diabetes mellitus fpc insulin use: without press tender long goods use Qualified Code(s): E11.65 - Type 2 diabetes mellitus with hyperglycemia Code(s): E11.65 - Type 2 diabetes mellitus with hyperglycemia Status: Acute Assessment and Plan: Newly diagnosed with diabetes, hemoglobin A1c was 10 on admission. (7) Adult failure to thrive: Code(s): R62.7 - Adult failure to thrive Status: Acute Assessment and Plan: History shows he does not leave the house, he is on the couch or the bed nearly all the time. He has been getting weaker. Has been non compliant in the past. Hopefully, treatment of medical illnesses found at this admission will improve this. Mental illness is also certainly a possibility. Patient being evaluated for [facility] at discharge. If not accepted there, strongly recommend SNF rather than return home. Subjective Subjective Date/Time Seen: 09/27/24 09:57 Patient reports: no new complaints Interval history: Patient is doing well today. Tolerating full diet without nausea or vomiting. +BM. Objective Data Vital Signs Vital Signs: Vital Signs - 24 hr 09/26/24 14:00 09/26/24 15:17 09/26/24 20:00 Temperature 97.2 F L Pulse Rate 70 Respiratory Rate 16 Blood Pressure 141/43 H Pulse Oximetry 96 Oxygen Delivery Room Air Room Air 09/26/24 21:04 09/26/24 21:05 09/26/24 21:40 Temperature 97.9 F Pulse Rate 75 75 71 Respiratory Rate 22 H Blood Pressure 166/60 H 162/52 H Pulse Oximetry 96 Oxygen Delivery 09/27/24 06:00 09/27/24 08:41 09/27/24 08:44 Temperature 97.4 F L 97.6 F Pulse Rate 66 71 71 Respiratory Rate 18 16 Blood Pressure 169/65 H 185/70 H Pulse Oximetry 95 97 Oxygen Delivery 09/27/24 08:45 Temperature Pulse Rate Respiratory Rate Blood Pressure Pulse Oximetry 97 Oxygen Delivery Room Air Intake/Output Intake/Output: Intake & Output 09/24/24 09/25/24 09/26/24 09/27/24 23:59 23:59 23:59 23:59 Intake Total 2620 3043.3 3600 1016.7 Output Total 2350 2450 1700 1700 Balance 270 593.3 1900 -683.3 Meds/Results Medications: Active Medications Generic Name Dose Route Start Last Admin Trade Name Freq PRN Reason Stop Dose Admin Acetaminophen 650 mg 09/23/24 12:21 09/23/24 12:31 Acetaminophen 650 Mg Suppository RECTAL 650 mg Q6H PRN Administration Mild Pain (1-3) or Fever Amoxicillin/Clavulanate Potassium 1 tablet 09/26/24 14:00 09/27/24 06:57 Amoxicillin/Clavulanate K 875-125 Mg Tab PO 1 tablet Q8HR ELIJAH Administration Aspirin 81 mg 09/22/24 09:00 09/27/24 08:44 Aspirin 81 Mg Enteric Tablet PO 81 mg BID ELIJAH Administration Atorvastatin Calcium 80 mg 09/21/24 13:30 09/27/24 08:44 Atorvastatin 40 Mg Tablet PO 80 mg DAILY ELIJAH Administration Clopidogrel Bisulfate 75 mg 09/27/24 09:00 09/27/24 08:44 Clopidogrel Bisulfate 75 Mg Tablet PO 75 mg QAM ELIJAH Administration Dextrose 12.5 gm 09/21/24 00:14 Dextrose 50% 25 Gm/50 Ml Syringe IV PUSH PRN PRN Hypoglycemia Protocol Glucagon 1 mg 09/21/24 00:14 Glucagon For Inj 1 Mg Vial IM PRN PRN Hypoglycemia Protocol Glucose 15 gm 09/21/24 00:14 Glucose Oral Gel 15 Gm Of Glucse In 37.5 Gm Tube PO PRN PRN Hypoglycemia Protocol Hydralazine HCl 10 mg 09/23/24 13:32 Hydralazine Hcl 20 Mg/Ml Vial IV PUSH Q6H PRN Blood Pressure - High Dextrose 1,000 mls @ 100 mls/hr 09/21/24 00:14 Dextrose 5% 1,000 Ml IVPB PRN PRN Hypoglycemia Protocol Sodium Chloride 1,000 mls @ 100 mls/hr 09/23/24 12:25 09/27/24 02:15 Normal Saline Iv IV CONT 0 mls/hr .Q10H ELIJAH Infusion Insulin Aspart 4 - 8 units 09/21/24 08:00 09/27/24 08:45 Insulin Aspart (*Bkc) 100 Units/Ml SUB-Q Not Given TIDWM [facility] Protocol Insulin Aspart 2 - 4 units 09/21/24 21:00 09/26/24 20:55 Insulin Aspart (*Bkc) 100 Units/Ml SUB-Q Not Given HS [facility] Protocol Insulin Aspart 6 units 09/21/24 12:00 09/27/24 08:45 Insulin Aspart (*Bkc) 100 Units/Ml 0.05 units/kg (6 units) 6 units SUB-Q Administration TIDWM [facility] Insulin Glargine 30 units 09/22/24 21:00 09/26/24 20:56 Insulin Glargine (*Bkc) 100 Units/Ml SUB-Q 30 units HS ELIJAH Administration Lisinopril 2.5 mg 09/23/24 09:00 09/27/24 08:44 Lisinopril 2.5 Mg Tablet PO 2.5 mg QAM ELIJAH Administration Metoprolol Tartrate 12.5 mg 09/22/24 09:00 09/27/24 08:44 Metoprolol Tartrate 12.5 Mg Tablet PO 12.5 mg Q12HR ELIJAH Administration Radiology Results: ITS Impressions Chest X-Ray 09/20/24 20:34 IMPRESSION: No focal infiltrate or effusion. Abdomen/Pelvis CT 09/20/24 23:03 IMPRESSION: Fatty infiltration of a markedly enlarged liver. Cholelithiasis. Findings caudal to the tail of the pancreas for which an early pseudocyst formation versus carcinoid is suspected. Nonobstructing stones within the bilateral kidneys. Chest CTA 09/21/24 15:12 IMPRESSION: 1. No pulmonary embolism. 2. No acute cardiopulmonary pathology. 3. Fat infiltration of the liver. 4. Cholelithiasis. 5. Left adrenal adenoma. No follow-up advised unless clinically warranted. MRCP 09/22/24 13:24 IMPRESSION: 1. Cholelithiasis without choledocholithiasis or biliary dilation. 2. Hepatomegaly with prominent diffuse hepatic steatosis. 3. 2.1 x 1.2 cm likely pseudocyst related to prior acute pancreatitis along the tail of the pancreas. 4. Very small sliding-type hiatal hernia. Head CT 09/23/24 11:27 Impression: No acute intracranial hemorrhage or suspicious mass effect. Brain MRI 09/23/24 12:08 IMPRESSION: 1. Normal for age brain. No acute intracranial process. Hepatobiliary Scan Nuclear Medicine 09/23/24 13:38 IMPRESSION: 1. Severe hepatocellular dysfunction with no excretion of gallbladder activity rendering assessment for cystic duct obstruction/acute cholecystitis nondiagnostic. Abdomen Ultrasound 09/24/24 15:26 IMPRESSION: Fat infiltration of the liver. Cyst in the left lobe of the liver. Hypoechoic area in the dome of the liver with vascularity which may represent a hemangioma versus a mass. Follow-up and further evaluation advised. Otherwise, normal limited abdominal ultrasound. Labs Labs: Laboratory Results - last 24 hr 09/26/24 09/26/24 09/26/24 05:46 11:44 16:52 WBC 4.1 L RBC 4.05 L Hgb 12.1 L Hct 39.3 L MCV 97.0 MCH 29.9 MCHC 30.8 L RDW 13.7 Plt Count 126 L MPV 10.1 POC Capillary Glucose 144 H 192 H 09/26/24 09/26/24 09/27/24 20:54 21:45 08:07 WBC RBC Hgb Hct MCV MCH MCHC RDW Plt Count MPV POC Capillary Glucose 152 H 139 H 136 H
--- NOTE | 2024-09-27 10:01 | P.PNIM_ITS ---
Progress Note: A&P Assessment and Plan (1) Non-ST elevation IA (NSTEMI): Code(s): I21.4 - Non-ST elevation (NSTEMI) myocardial infarction Status: Acute Plan Patient is a 69-year-old male who presents emergency department this evening via EMS complaining of generalized weakness. NSTEMI Upon arrival to ED, patient was found have elevated troponin that is trending up, EKG shows sinus rhythm, no specific ST or T-wave changes, Pending echocardiogram Telemetry monitoring Aspirin 325 mg once and 81 mg daily p.o. Consult account planner for evaluation treatment patent coronary arteries by cardiac catheterization Continue aspirin 81 mg daily p.o., Plavix 75 mg daily p.o. Uncontrolled diabetes, New onset diabetes glucose 342 on arrival Hemoglobin A1c 10.6 Patient is on sliding scale Start Lantus 20 units q.h.s. lispro 6 units a.c., increase lantus to 30 qhs 09/22 Now controlled in the target range Transaminitis, gallstone Total bilirubin 2.4, AST 487, ALT 402, CPK 319 CT abdomen showed gallstone, fatty liver 09/20 MRCP 1. Cholelithiasis without choledocholithiasis or biliary dilation. 2. Hepatomegaly with prominent diffuse hepatic steatosis. 3. 2.1 x 1.2 cm likely pseudocyst related to prior acute pancreatitis along the tail of the pancreas. 4. Very small sliding-type hiatal hernia. Consult GI and general surgeon for evaluation treatment Total bilirubin is trending up, liver enzymes trending up. Severe hepatocellular dysfunction with no excretion of gallbladder activity rendering assessment for cystic duct obstruction/acute cholecystitis nondiagnostic. f/u abd us. Forty management per general surgeon 09/24 Patient is afebrile overnight 09/25 Total bilirubin and liver enzymes trending down 09/26: Total repeat is trending down, liver enzyme persists, no obvious biliary obstruction. Unclear etiologies. Consult GI for evaluation treatment regarding elevated liver enzymes. Patient may need liver biopsy for diagnosis Appreciate general surgeon and GI consultation Labs reviewed, total bilirubin down to normal, AST ALT and alk phos are trending down today GI recommends to repeat liver enzymes as outpatient and then he can follow up in office, if still elevated numbers we can complete full work up sepsis low-grade temperature, tachycardia and lactic acidosis of 4. significant transaminitis and hyperbilirubinemia, chronic immunosuppressive therapy for psoriatic arthritis. lactic acid level, blood cultures negative of COVID flu and RSV PCR. 1 of the 2 blood culture grew Klebsiella oxytoca Possible due to intra-abdominal infection Started Zosyn IV and vancomycin 09/23 Repeat blood culture no growth so far resolved change to Augmentin p.o. 09/26 Acute encephalopathy Patient confused was minimally responsive to verbal commands CT head shows no acute intracranial hemorrhage of mass effect, the ventricle or enlarged MRI showed Normal for age brain. No acute intracranial process. Possible due to sepsis Started fluid resuscitation, vancomycin and Zosyn 09/23. Currently patient is alert oriented x3, possible encephalopathy due to sepsis, no focal deficit 09/24 Alert oriented x3 no focal deficit 09/25 Patient will be discharged to group home for rehab today Subjective Date/time seen: 09/27/24 10:01 Interval history: I saw exam patient today, patient feels comfortable, denies headache, chest pain abdomen pain nausea vomiting diarrhea Patient afebrile, blood pressure stable Labs reviewed, total bilirubin down to normal, AST ALT and alk phos are trending down Exam Narrative: GENERAL: Pleasant, in no acute distress. Well-nourished. - EYES: EOMI. Anicteric. - HENT: Moist mucous membranes. - LUNGS: Clear to auscultation bilateral ly, no wheezing, rhonchi, or rales. - CARDIOVASCULAR: Regular rate and rhyth m. No murmur. No JVD. - ABDOMEN: Soft, non-tender and non-dist ended. No palpable masses. - EXTREMITIES: No edema. Peripheral puls es 2+. Non-tender. - NEUROLOGIC: No focal neurological defi cits. CN II-XII grossly intact. - PSYCHIATRIC: Awake, Alert and oriented x 3. Appropriate mood and affect. - SKIN: No rashes or lesions. Warm. - LYMPH: No cervical lymphadenopathy. Objective Data Vital Signs Vital Signs: Vital Signs - 24 hr 09/26/24 14:00 09/26/24 15:17 09/26/24 20:00 Temperature 97.2 F L Pulse Rate 70 Respiratory Rate 16 Blood Pressure 141/43 H Pulse Oximetry 96 Oxygen Delivery Room Air Room Air 09/26/24 21:04 09/26/24 21:05 09/26/24 21:40 Temperature 97.9 F Pulse Rate 75 75 71 Respiratory Rate 22 H Blood Pressure 166/60 H 162/52 H Pulse Oximetry 96 Oxygen Delivery 09/27/24 06:00 09/27/24 08:41 09/27/24 08:44 Temperature 97.4 F L 97.6 F Pulse Rate 66 71 71 Respiratory Rate 18 16 Blood Pressure 169/65 H 185/70 H Pulse Oximetry 95 97 Oxygen Delivery 09/27/24 08:45 Temperature Pulse Rate Respiratory Rate Blood Pressure Pulse Oximetry 97 Oxygen Delivery Room Air Intake/Output Intake/Output: Intake & Output 09/24/24 09/25/24 09/26/24 09/27/24 23:59 23:59 23:59 23:59 Intake Total 2620 3043.3 3600 1016.7 Output Total 2350 2450 1700 1700 Balance 270 593.3 1900 -683.3 Meds/Results Medications: Active Medications Generic Name Dose Route Start Last Admin Trade Name Freq PRN Reason Stop Dose Admin Acetaminophen 650 mg 09/23/24 12:21 09/23/24 12:31 Acetaminophen 650 Mg Suppository RECTAL 650 mg Q6H PRN Administration Mild Pain (1-3) or Fever Amoxicillin/Clavulanate Potassium 1 tablet 09/26/24 14:00 09/27/24 06:57 Amoxicillin/Clavulanate K 875-125 Mg Tab PO 1 tablet Q8HR ELIJAH Administration Aspirin 81 mg 09/22/24 09:00 09/27/24 08:44 Aspirin 81 Mg Enteric Tablet PO 81 mg BID ELIJAH Administration Atorvastatin Calcium 80 mg 09/21/24 13:30 09/27/24 08:44 Atorvastatin 40 Mg Tablet PO 80 mg DAILY ELIJAH Administration Clopidogrel Bisulfate 75 mg 09/27/24 09:00 09/27/24 08:44 Clopidogrel Bisulfate 75 Mg Tablet PO 75 mg QAM ELIJAH Administration Dextrose 12.5 gm 09/21/24 00:14 Dextrose 50% 25 Gm/50 Ml Syringe IV PUSH PRN PRN Hypoglycemia Protocol Glucagon 1 mg 09/21/24 00:14 Glucagon For Inj 1 Mg Vial IM PRN PRN Hypoglycemia Protocol Glucose 15 gm 09/21/24 00:14 Glucose Oral Gel 15 Gm Of Glucse In 37.5 Gm Tube PO PRN PRN Hypoglycemia Protocol Hydralazine HCl 10 mg 09/23/24 13:32 Hydralazine Hcl 20 Mg/Ml Vial IV PUSH Q6H PRN Blood Pressure - High Dextrose 1,000 mls @ 100 mls/hr 09/21/24 00:14 Dextrose 5% 1,000 Ml IVPB PRN PRN Hypoglycemia Protocol Sodium Chloride 1,000 mls @ 100 mls/hr 09/23/24 12:25 09/27/24 02:15 Normal Saline Iv IV CONT 0 mls/hr .Q10H ELIJAH Infusion Insulin Aspart 4 - 8 units 09/21/24 08:00 09/27/24 08:45 Insulin Aspart (*Bkc) 100 Units/Ml SUB-Q Not Given TIDWM [facility] Protocol Insulin Aspart 2 - 4 units 09/21/24 21:00 09/26/24 20:55 Insulin Aspart (*Bkc) 100 Units/Ml SUB-Q Not Given HS [facility] Protocol Insulin Aspart 6 units 09/21/24 12:00 09/27/24 08:45 Insulin Aspart (*Bkc) 100 Units/Ml 0.05 units/kg (6 units) 6 units SUB-Q Administration TIDWM ELIJAH Insulin Glargine 30 units 09/22/24 21:00 09/26/24 20:56 Insulin Glargine (*Bkc) 100 Units/Ml SUB-Q 30 units HS ELIJAH Administration Lisinopril 2.5 mg 09/23/24 09:00 09/27/24 08:44 Lisinopril 2.5 Mg Tablet PO 2.5 mg QAM ELIJAH Administration Metoprolol Tartrate 12.5 mg 09/22/24 09:00 09/27/24 08:44 Metoprolol Tartrate 12.5 Mg Tablet PO 12.5 mg Q12HR ELIJAH Administration Radiology Results: ITS Impressions Chest X-Ray 09/20/24 20:34 IMPRESSION: No focal infiltrate or effusion. Abdomen/Pelvis CT 09/20/24 23:03 IMPRESSION: Fatty infiltration of a markedly enlarged liver. Cholelithiasis. Findings caudal to the tail of the pancreas for which an early pseudocyst formation versus carcinoid is suspected. Nonobstructing stones within the bilateral kidneys. Chest CTA 09/21/24 15:12 IMPRESSION: 1. No pulmonary embolism. 2. No acute cardiopulmonary pathology. 3. Fat infiltration of the liver. 4. Cholelithiasis. 5. Left adrenal adenoma. No follow-up advised unless clinically warranted. MRCP 09/22/24 13:24 IMPRESSION: 1. Cholelithiasis without choledocholithiasis or biliary dilation. 2. Hepatomegaly with prominent diffuse hepatic steatosis. 3. 2.1 x 1.2 cm likely pseudocyst related to prior acute pancreatitis along the tail of the pancreas. 4. Very small sliding-type hiatal hernia. Head CT 09/23/24 11:27 Impression: No acute intracranial hemorrhage or suspicious mass effect. Brain MRI 09/23/24 12:08 IMPRESSION: 1. Normal for age brain. No acute intracranial process. Hepatobiliary Scan Nuclear Medicine 09/23/24 13:38 IMPRESSION: 1. Severe hepatocellular dysfunction with no excretion of gallbladder activity rendering assessment for cystic duct obstruction/acute cholecystitis nondiagnostic. Abdomen Ultrasound 09/24/24 15:26 IMPRESSION: Fat infiltration of the liver. Cyst in the left lobe of the liver. Hypoechoic area in the dome of the liver with vascularity which may represent a hemangioma versus a mass. Follow-up and further evaluation advised. Otherwise, normal limited abdominal ultrasound. Labs Labs: Laboratory Results - last 24 hr 09/26/24 09/26/24 09/26/24 05:46 11:44 16:52 WBC 4.1 L RBC 4.05 L Hgb 12.1 L Hct 39.3 L MCV 97.0 MCH 29.9 MCHC 30.8 L RDW 13.7 Plt Count 126 L MPV 10.1 POC Capillary Glucose 144 H 192 H 09/26/24 09/26/24 09/27/24 20:54 21:45 08:07 WBC RBC Hgb Hct MCV MCH MCHC RDW Plt Count MPV POC Capillary Glucose 152 H 139 H 136 H
[2024-09-27 10:23] LABS: Hematocrit 38.6 % (42.0-52.0); Hemoglobin 12.4 g/dL (14.0-18.0); Mean Corpuscular HGB Conc 32.1 g/dl (32-36); Mean Corpuscular Hemoglobin 30.0 pg (26-34); Mean Corpuscular Volume 93.5 fl (80-100); Platelet Count Result 154 k/mm3 (150-375); Red Blood Count 4.13 M/mm3 (4.6-6.20); White Blood Count 5.3 K/mm3 (4.5-10.0)
[2024-09-27 10:46] LABS: Alanine Aminotransferase 180 U/L (6-50); Albumin Level 3.2 g/dL (3.5-5.1); Alkaline Phosphatase 128 U/L (38-126); Anion Gap 8 mmol/L (4-12); Aspartate Amino Transferase 188 U/L (17-59); Bilirubin,Total 1.0 mg/dL (0.2-1.3); Blood Urea Nitrogen 7 mg/dL (9-20); Calcium 8.4 mg/dL (8.4-10.2); Carbon Dioxide 24 mmol/L (22-30); Chloride 106 mmol/L (98-107); Estimated CRCL calculation 76 ml/min; Estimated Glomerular Filt Rate > 60; Glucose 190 mg/dL (65-110); Potassium 3.6 mmol/L (3.4-5.0); Sodium 138 mmol/L (137-145); Total Protein 7.4 g/dL (6.3-8.2)
[2024-09-27] MEDS: INSULIN ASPART (*BKC) 100 UNITS/ML SUB-Q (11:49)
--- NOTE | 2024-09-27 13:05 | P.CDI_ITS ---
CDI Query Clarification Request Encephalopathy has been documented. Please clarify type of encephalopathy: * Metabolic * Toxic * Hepatic * Hypertensive * Other * Unable to Determine The medical chart reflects the following: Acute encephalopathy Patient confused was minimally responsive to verbal commands CT head shows no acute intracranial hemorrhage of mass effect, the ventricle or enlarged MRI showed Normal for age brain. No acute intracranial process. Possible due to sepsis Started fluid resuscitation, vancomycin and Zosyn 09/23. Currently patient is alert oriented x3, possible encephalopathy due to sepsis, no focal deficit 09/24 Alert oriented x3 no focal deficit 09/25 <Mai Christine RN - Last Filed: 09/27/24 13:05> Clarified Diagnosis Clarified Diagnosis: Patient has Metabolic and toxic encephalopathy <Frankie Mcgrath MD - Last Filed: 09/27/24 14:20>
--- NOTE | 2024-09-27 14:21 | P.DS_ITS ---
DS: Admitting Diagnosis Discharge Date 09/27/24 Admitting Diagnosis (1) Non-ST elevation NM (NSTEMI): Code(s): I21.4 - Non-ST elevation (NSTEMI) myocardial infarction Status: Acute DS: Discharge Diagnosis Discharge Diagnosis (1) Non-ST elevation NM (NSTEMI): Code(s): I21.4 - Non-ST elevation (NSTEMI) myocardial infarction Status: Acute DS: Summary Hospital Course Hospital Course: 69-year-old male with a past medical history of psoriatic arthritis on immune modulator therapy and obesity who presented to the ER from home via EMS due to increased weakness. Patient self is a poor historian despite being oriented to person place time and current events. As such the patient's provided some limited history. The patient only complained of being tired and weak. When I asked him will what brought him into the ER he would not be eye contact and would stare off into space. 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 Since he is retired the patient is simply sits in the chair in does not do much of anything. He does not exercise or walk. He has become progressively weaker and weaker. He only gets up to walk from the couch to the bathroom and back. Today he was unable to get up off of the toilet. She brought him into the ER because she felt he needed PT and OT evaluation and possible rehab placement. On arrival to the ER the patient was tachycardic and had a low-grade temperature at 99.9?. He had a normal white count. But his initial electrolyte panel did demonstrate anion gap with low serum bicarb and hyperglycemia with glucoses close 350. The patient and his denies the patient having history of diabetes. As he also had transaminitis with hyperbilirubinemia. He denied any abdominal pain, nausea or vomiting. However the patient did have an emesis bag at bedside. The patient had a CK just barely elevated above cutoff for normal. Initial troponin was negative with repeat troponins elevated. However EKG did not demonstrate evidence of acute ischemia in the patient denied chest pain. The following med issues have been addressed during hospitalization NSTEMI Upon arrival to ED, patient was found have elevated troponin that is trending up, EKG shows sinus rhythm, no specific ST or T-wave changes, Pending echocardiogram Telemetry monitoring Aspirin 325 mg once and 81 mg daily p.o. Consult street light servicer supervisor for evaluation treatment patent coronary arteries by cardiac catheterization Continue aspirin 81 mg daily p.o., Plavix 75 mg daily p.o. Uncontrolled diabetes, New onset diabetes glucose 342 on arrival Hemoglobin A1c 10.6 Patient is on sliding scale Start Lantus 20 units q.h.s. lispro 6 units a.c., increase lantus to 30 qhs 09/22 Now controlled in the target range Transaminitis, gallstone Total bilirubin 2.4, AST 487, ALT 402, CPK 319 CT abdomen showed gallstone, fatty liver 09/20 MRCP 1. Cholelithiasis without choledocholithiasis or biliary dilation. 2. Hepatomegaly with prominent diffuse hepatic steatosis. 3. 2.1 x 1.2 cm likely pseudocyst related to prior acute pancreatitis along the tail of the pancreas. 4. Very small sliding-type hiatal hernia. Consult GI and general surgeon for evaluation treatment Total bilirubin is trending up, liver enzymes trending up. Severe hepatocellular dysfunction with no excretion of gallbladder activity rendering assessment for cystic duct obstruction/acute cholecystitis nondiagnostic. f/u abd us. Forty management per general surgeon 09/24 Patient is afebrile overnight 09/25 Total bilirubin and liver enzymes trending down 09/26: Total repeat is trending down, liver enzyme persists, no obvious biliary obstruction. Unclear etiologies. Consult GI for evaluation treatment regarding elevated liver enzymes. Patient may need liver biopsy for diagnosis Appreciate general surgeon and GI consultation Labs reviewed, total bilirubin down to normal, AST ALT and alk phos are trending down today GI recommends to repeat liver enzymes as outpatient and then he can follow up in office, if still elevated numbers we can complete full work up sepsis low-grade temperature, tachycardia and lactic acidosis of 4. significant transaminitis and hyperbilirubinemia, chronic immunosuppressive therapy for psoriatic arthritis. lactic acid level, blood cultures negative of COVID flu and RSV PCR. 1 of the 2 blood culture grew Klebsiella oxytoca Possible due to intra-abdominal infection Started Zosyn IV and vancomycin 09/23 Repeat blood culture no growth so far resolved change to Augmentin p.o. 09/26 Acute encephalopathy Patient confused was minimally responsive to verbal commands CT head shows no acute intracranial hemorrhage of mass effect, the ventricle or enlarged MRI showed Normal for age brain. No acute intracranial process. Possible due to sepsis Started fluid resuscitation, vancomycin and Zosyn 09/23. Currently patient is alert oriented x3, possible encephalopathy due to sepsis, no focal deficit 09/24 Alert oriented x3 no focal deficit 09/25 [facility] Time Spent with Patient Time attestation: Total time spent providing and/or coordinating discharge services: Exam Narrative: GENERAL: Pleasant, in no acute distress. Well-nourished. - EYES: EOMI. Anicteric. - HENT: Moist mucous membranes. - LUNGS: Clear to auscultation bilateral ly, no wheezing, rhonchi, or rales. - CARDIOVASCULAR: Regular rate and rhyth m. No murmur. No JVD. - ABDOMEN: Soft, non-tender and non-dist ended. No palpable masses. - EXTREMITIES: No edema. Peripheral puls es 2+. Non-tender. - NEUROLOGIC: No focal neurological defi cits. CN II-XII grossly intact. - PSYCHIATRIC: Awake, Alert and oriented x 3. Appropriate mood and affect. - SKIN: No rashes or lesions. Warm. - LYMPH: No cervical lymphadenopathy. DS: Data Data Completed and Pending Labs on day of discharge: Labs from last 24 hours 09/27/24 09/27/24 09/27/24 11:37 10:16 08:07 WBC 5.3 RBC 4.13 L Hgb 12.4 L Hct 38.6 L MCV 93.5 MCH 30.0 MCHC 32.1 RDW 13.3 Plt Count 154 MPV 9.4 Sodium 138 Potassium 3.6 Chloride 106 Carbon Dioxide 24 Anion Gap 8 BUN 7 L Creatinine 1.04 Estim Creat Clear Calc 76 Estimated GFR > 60 Glucose 190 H POC Capillary Glucose 223 H 136 H Calcium 8.4 Total Bilirubin 1.0 AST 188 H ALT 180 H Alkaline Phosphatase 128 H Total Protein 7.4 Albumin 3.2 L 09/26/24 09/26/24 09/26/24 21:45 20:54 16:52 WBC RBC Hgb Hct MCV MCH MCHC RDW Plt Count MPV Sodium Potassium Chloride Carbon Dioxide Anion Gap BUN Creatinine Estim Creat Clear Calc Estimated GFR Glucose POC Capillary Glucose 139 H 152 H 192 H Calcium Total Bilirubin AST ALT Alkaline Phosphatase Total Protein Albumin Preliminary micro results at discharge 09/23/24 09:52 Blood Culture - Preliminary Blood 09/23/24 09:47 Blood Culture - Preliminary Blood 09/21/24 04:20 Blood Culture - Preliminary Blood Klebsiella oxytoca 09/21/24 04:34 Blood Culture - Preliminary Blood Klebsiella oxytoca Discharge Plan Discharge Attending physician on discharge: Frankie Mcgrath Consulting providers: Griselda Juarez Discharging Clinician: courtney Anticipated Discharge Date/Time: 09/26/24 15:51 Patient Disposition: Home Activity: as tolerated Diet: as tolerated Patient Instructions: Antibiotic Form Patient Language: Citizen Of [place] Stand Alone Forms: General Discharge Information Follow-up/Referrals: Bib Saab MD [Physician] - (See general surgeon at scheduled appointment) Osito Kirby MD [Physician] - (Patient needs to call GI to make follow- up appointment) Roberto Simon MD [Primary Care Provider] - (See PCP in 1 week) Discharge Medications: New insulin glargine [Lantus U-100 Insulin] 100 unit/mL Solution 30 unit subcut HS Qty: 10 0RF insulin aspart U-100 [Novolog U-100 Insulin aspart] 100 unit/mL Solution 6 unit subcut TIDWM Qty: 10 1RF insulin aspart U-100 [Novolog U-100 Insulin aspart] 100 unit/mL Solution 4 - 8 unit subcut TIDWM Qty: 10 0RF Protocol: Insulin Corrective High-Dose Condition: glucose < 70 mg/dl Dose/Route: Follow hypoglycemia order Condition: glucose 70-200 mg/dl Dose/Route: No additional insulin Condition: glucose 201-250 mg/dl Dose/Route: 4 units sub-Q Condition: glucose 251-300 mg/dl Dose/Route: 5 units sub-Q Condition: glucose 301-350 mg/dl Dose/Route: 6 units sub-Q Condition: glucose 351-400 mg/dl Dose/Route: 8 units sub-Q Condition: glucose > 400 mg/dl Dose/Route: Call MD Protocol Text: *No Correction Dose at Bedtime* Rx Instructions: Instruction glucose < 70 mg/dl Follow hypoglycemia order glucose 70-200 mg/dl No additional insulin glucose 201-250 mg/dl 4 units sub-Q glucose 251-300 mg/dl 5 units sub-Q glucose 301-350 mg/dl 6 units sub-Q glucose 351-400 mg/dl 8 units sub-Q glucose > 400 mg/dl Call insulin aspart U-100 [Novolog U-100 Insulin aspart] 100 unit/mL Solution 2 - 4 unit subcut HS Qty: 10 0RF Protocol: Insulin Corrective High-Dose Condition: glucose < 70 mg/dl Dose/Route: Follow hypoglycemia order Condition: glucose 70-200 mg/dl Dose/Route: No additional insulin Condition: glucose 201-250 mg/dl Dose/Route: 2 units sub-Q Condition: glucose 251-300 mg/dl Dose/Route: 2 units sub-Q Condition: glucose 301-350 mg/dl Dose/Route: 3 units sub-Q Condition: glucose 351-400 mg/dl Dose/Route: 4 units sub-Q Condition: glucose > 400 mg/dl Dose/Route: Call Rx Instructions: Instruction glucose < 70 mg/dl Follow hypoglycemia order glucose 70-200 mg/dl No additional insulin glucose 201-250 mg/dl 2 units sub-Q glucose 251-300 mg/dl 2 units sub-Q glucose 301-350 mg/dl 3 units sub-Q glucose 351-400 mg/dl 4 units sub-Q glucose > 400 mg/dl Call (DME) blood-glucose meter [[employer] Verio Flex meter] [facility] [place] Qty: 1 0RF Rx Instructions: May substitute to in-stock meter and/or covered by insurance. Use As Directed (DME) OneTouch Verio test strips Strip Qty: 1 0RF Rx Instructions: May substitute to in-stock and/or covered by insurance strips. Use As Directed (DME) pen needle, diabetic 32 gauge x 5/32 Needle Qty: 1 0RF Rx Instructions: As Directed (DME) lancets [OneTouch Delica Plus Lancet] 30 gauge [facility] [place] Qty: 1 0RF Rx Instructions: May substitute to in-stock and/or covered by insurance lancets. Use As Directed aspirin 81 mg Tablet,Delayed Release (Dr/Ec) 81 mg PO BID Qty: 60 1RF lisinopril 20 mg tablet 20 mg PO DAILY Qty: 60 0RF clopidogrel 75 mg Tablet 75 mg PO QAM Qty: 60 1RF metoprolol succinate 50 mg tablet extended release 24 hr 50 mg PO DAILY Qty: 60 0RF amoxicillin-pot clavulanate 875-125 mg tablet 1 tablet PO Q12H Qty: 12 0RF No Action ustekinumab [Stelara] 90 mg/mL syringe 90 mg SUBCUT [id number] Patient Comments: pt took inJune Rx Instructions: subcutaneously; Date of admission: 09/21/24 00:29 Primary Care Provider: Roberto Simon Admitting Provider: Lisa Robison Attending physician on admission: Lisa Robison Condition: Improved
[2024-09-27] MEDS: INSULIN GLARGINE (*BKC) 100 UNITS/ML 30 UNITS SUB-Q (21:13)
[2024-09-28] VITALS (7 sets, daily range): BP systolic 152–180; BP diastolic 58–81; PULSE 66–95; RESP 18–20; TEMP 36.2–36.8; O2SAT 96–98
[2024-09-28] MEDS: ASPIRIN 81 MG ENTERIC TABLET PO ×2 (09:57→17:41)
[2024-09-28] MEDS: ATORVASTATIN 40 MG TABLET 80 MG PO (09:57)
[2024-09-28] MEDS: CLOPIDOGREL BISULFATE 75 MG TABLET PO (09:57)
[2024-09-28] MEDS: METOPROLOL TARTRATE 12.5 MG TABLET PO ×2 (09:57→20:53)
[2024-09-28] MEDS: INSULIN ASPART (*BKC) 100 UNITS/ML 6 UNITS SUB-Q ×2 (09:58→18:06)
--- NOTE | 2024-09-28 11:53 | PCOTNOTE ---
Patient refused to participate at this time Patient states, 'I'm not hungry when offered lunch. Patient states he is sleeping, leave me alone, so tired, not today.
--- NOTE | 2024-09-28 13:45 | PCPTNOTE ---
Patient refused treatment this session. Patient reported he was too tired to do therapy. Educated patient on the importance and benefits of therapy, patient continued to refuse.
--- NOTE | 2024-09-28 14:23 | P.PNIM_ITS ---
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 BRIGIDO III flow. * Continue asa 81 mg daily indefinitely. * Plavix 75 mg daily for 1 year per cardiology * Continue atorvastatin 80 mg daily. * Continue metoprolol 12.5 mg b.i.d. * Add lisinopril 2.5 mg daily to help slow progression of aneurysm. Check BMP in 1 week after starting lisinopril. * Good risk factor control including blood pressure, lipids, diabetes. * Follow-up with cardiology in 1 month post discharge. (2) Coronary artery disease: Qualifiers: Coronary Disease-Associated Artery/Lesion type: [place] artery [place] vs. transplanted heart: [place] heart Associated angina: without angina Qualified Code(s): I25.10 - Atherosclerotic heart disease of [place] coronary artery without angina pectoris Code(s): I25.10 - Atherosclerotic heart disease of [place] coronary artery without angina pectoris Status: Acute Assessment and Plan: SEE above #1 (3) Hypertension: Code(s): I10 - Essential (primary) hypertension Status: Acute Assessment and Plan: BP remains elevated systolic's greater than 180's' * received hydralazine 10mg IVP x 1 * started patient on 30mg Procardia * Monitor BP Q24 hr may need to increase if not better controlled (4) Type 2 diabetes mellitus with hyperglycemia: Qualifiers: Diabetes mellitus intermediate card tender insulin use: without intermediate card tender use Qualified Code(s): E11.65 - Type 2 diabetes mellitus with hyperglycemia Code(s): E11.65 - Type 2 diabetes mellitus with hyperglycemia Status: Acute Assessment and Plan: New onset diabetes glucose 342 on arrival, Hemoglobin A1c 10.6 * Accuchecks ACHS * Start Lantus 20 units q.h.s. lispro 6 units a.c., increase lantus to 30 qhs 09/22 * hypoglycemic protocol * diabetic diet * consult associate professor of geography (5) Transaminitis: Code(s): R74.01 - Elevation of levels of liver transaminase levels Status: Acute Assessment and Plan: Total bilirubin 2.4, AST 487, ALT 402, CPK 319,CT abdomen showed gallstone, fatty liver, Consult GI and general surgeon for evaluation treatment * 09/20 MRCP 1. Cholelithiasis without choledocholithiasis or biliary dilation. 2. Hepatomegaly with prominent diffuse hepatic steatosis. 3. 2.1 x 1.2 cm likely pseudocyst related to prior acute pancreatitis along the tail of the pancreas. 4. Very small sliding-type hiatal hernia. * Improving. HIDA scan suggests hepatic primary disfunction. Would recommend GI evaluate since evidence now points to primary hepatic dysfunction, not obstructive causes (6) Bacteremia: Code(s): R78.81 - Bacteremia Status: Acute Assessment and Plan: Bacteremia due to Klebsiella which is sensitive to all antibiotics tested outside of ampicillin. Source unclear * Continue Augmentin treatment * Second set blood cultures no growth Q48 hours Plan Code status: Full code per patient DVT prophylaxis: SCD Stress ulcer prophylaxis: Protonix 40 daily PT/OT notes: SNF Disposition: Patient continues admission was to discharged yesterday to [facility] but has been hypertensive received single dose IV hydralazine high blood pressure will start patient on Procardia 30 mg and monitor for the next 24 hours plan for discharge to [facility] tomorrow if no events overnight. Time Spent With Patient Time with patient: 15 - 25 minutes Subjective Date/time seen: 09/28/24 14:23 Interval history: Patient is a 69 year old male who was admitted for further treatment of NSTEMI, transaminitis, Sepsis, nd acute Encephalopathy. 09/28/2024: Patient in bed no acute distress and denied CP, SOB, N/V tolerating oral intake. at bedside updated that he would need to stay one more night for better BP control. Review of Systems Review of Systems: Patient had a flat affect and was poor historian with review of systems unreliable. All systems reviewed & are unremarkable except as noted in HPI and below Exam Narrative: GENERAL: Pleasant, in no acute distress. Well-nourished. - EYES: EOMI. Anicteric. - HENT: Moist mucous membranes. - LUNGS: Clear to auscultation bilateral ly - CARDIOVASCULAR: RRR - ABDOMEN: Soft, non-tender and non-dist ended - EXTREMITIES: No edema. Peripheral puls es 2+. Non-tender. - NEUROLOGIC: No focal neurological defi cits. CN II-XII grossly intact. - PSYCHIATRIC: Awake, Alert and oriented x 3. Objective Data Vital Signs Vital Signs: Vital Signs - 24 hr 09/27/24 20:00 09/27/24 21:13 09/27/24 21:20 Temperature 97.8 F Pulse Rate 70 73 Respiratory Rate 20 Blood Pressure 169/53 H Pulse Oximetry 96 Oxygen Delivery Room Air 09/28/24 05:23 09/28/24 09:57 09/28/24 10:00 Temperature 97.2 F L Pulse Rate 66 66 Respiratory Rate 20 Blood Pressure 180/58 H Pulse Oximetry 98 Oxygen Delivery Room Air 09/28/24 13:14 Temperature Pulse Rate 74 Respiratory Rate Blood Pressure 155/59 H Pulse Oximetry Oxygen Delivery Intake/Output Intake/Output: Intake & Output 09/25/24 09/26/24 09/27/24 09/28/24 23:59 23:59 23:59 23:59 Intake Total 3043.3 3600 2062.7 618 Output Total 2450 1700 1950 1500 Balance 593.3 1900 112.7 -882 Meds/Results Medications: Active Medications Generic Name Dose Route Start Last Admin Trade Name Freq PRN Reason Stop Dose Admin Acetaminophen 650 mg 09/23/24 12:21 09/23/24 12:31 Acetaminophen 650 Mg Suppository RECTAL 650 mg Q6H PRN Administration Mild Pain (1-3) or Fever Amoxicillin/Clavulanate Potassium 1 tablet 09/26/24 14:00 09/28/24 13:16 Amoxicillin/Clavulanate K 875-125 Mg Tab PO 09/29/24 22:01 1 tablet Q8HR ELIJAH Administration Aspirin 81 mg 09/22/24 09:00 09/28/24 09:57 Aspirin 81 Mg Enteric Tablet PO 81 mg BID ELIJAH Administration Atorvastatin Calcium 80 mg 09/21/24 13:30 09/28/24 09:57 Atorvastatin 40 Mg Tablet PO 80 mg DAILY ELIJAH Administration Clopidogrel Bisulfate 75 mg 09/27/24 09:00 09/28/24 09:57 Clopidogrel Bisulfate 75 Mg Tablet PO 75 mg QAM ELIJAH Administration Dextrose 12.5 gm 09/21/24 00:14 Dextrose 50% 25 Gm/50 Ml Syringe IV PUSH PRN PRN Hypoglycemia Protocol Glucagon 1 mg 09/21/24 00:14 Glucagon For Inj 1 Mg Vial IM PRN PRN Hypoglycemia Protocol Glucose 15 gm 09/21/24 00:14 Glucose Oral Gel 15 Gm Of Glucse In 37.5 Gm Tube PO PRN PRN Hypoglycemia Protocol Hydralazine HCl 10 mg 09/23/24 13:32 09/28/24 06:03 Hydralazine Hcl 20 Mg/Ml Vial IV PUSH 10 mg Q6H PRN Administration Blood Pressure - High Dextrose 1,000 mls @ 100 mls/hr 09/21/24 00:14 Dextrose 5% 1,000 Ml IVPB PRN PRN Hypoglycemia Protocol Insulin Aspart 4 - 8 units 09/21/24 08:00 09/28/24 11:32 Insulin Aspart (*Bkc) 100 Units/Ml SUB-Q Not Given TIDWM [facility] Protocol Insulin Aspart 2 - 4 units 09/21/24 21:00 09/27/24 21:14 Insulin Aspart (*Bkc) 100 Units/Ml SUB-Q Not Given HS [facility] Protocol Insulin Aspart 6 units 09/21/24 12:00 09/28/24 12:27 Insulin Aspart (*Bkc) 100 Units/Ml 0.05 units/kg (6 units) Not Given SUB-Q TIDWM ELIJAH Insulin Glargine 30 units 09/22/24 21:00 09/27/24 21:13 Insulin Glargine (*Bkc) 100 Units/Ml SUB-Q 30 units HS ELIJAH Administration Lisinopril 2.5 mg 09/23/24 09:00 09/28/24 09:57 Lisinopril 2.5 Mg Tablet PO 2.5 mg QAM ELIJAH Administration Metoprolol Tartrate 12.5 mg 09/22/24 09:00 09/28/24 09:57 Metoprolol Tartrate 12.5 Mg Tablet PO 12.5 mg Q12HR ELIJAH Administration Nifedipine 30 mg 09/28/24 12:30 09/28/24 13:16 Nifedipine 30 Mg Tab.Er.24 PO 30 mg QAM ELIJAH Administration Radiology Results: ITS Impressions Chest X-Ray 09/20/24 20:34 IMPRESSION: No focal infiltrate or effusion. Abdomen/Pelvis CT 09/20/24 23:03 IMPRESSION: Fatty infiltration of a markedly enlarged liver. Cholelithiasis. Findings caudal to the tail of the pancreas for which an early pseudocyst formation versus carcinoid is suspected. Nonobstructing stones within the bilateral kidneys. Chest CTA 09/21/24 15:12 IMPRESSION: 1. No pulmonary embolism. 2. No acute cardiopulmonary pathology. 3. Fat infiltration of the liver. 4. Cholelithiasis. 5. Left adrenal adenoma. No follow-up advised unless clinically warranted. MRCP 09/22/24 13:24 IMPRESSION: 1. Cholelithiasis without choledocholithiasis or biliary dilation. 2. Hepatomegaly with prominent diffuse hepatic steatosis. 3. 2.1 x 1.2 cm likely pseudocyst related to prior acute pancreatitis along the tail of the pancreas. 4. Very small sliding-type hiatal hernia. Head CT 09/23/24 11:27 Impression: No acute intracranial hemorrhage or suspicious mass effect. Brain MRI 09/23/24 12:08 IMPRESSION: 1. Normal for age brain. No acute intracranial process. Hepatobiliary Scan Nuclear Medicine 09/23/24 13:38 IMPRESSION: 1. Severe hepatocellular dysfunction with no excretion of gallbladder activity rendering assessment for cystic duct obstruction/acute cholecystitis nondiagnostic. Abdomen Ultrasound 09/24/24 15:26 IMPRESSION: Fat infiltration of the liver. Cyst in the left lobe of the liver. Hypoechoic area in the dome of the liver with vascularity which may represent a hemangioma versus a mass. Follow-up and further evaluation advised. Otherwise, normal limited abdominal ultrasound. Labs Labs: Laboratory Results - last 24 hr 09/27/24 09/27/24 09/28/24 17:02 21:04 07:21 POC Capillary Glucose 138 H 132 H 138 H 09/28/24 11:28 POC Capillary Glucose 162 H Quality VTE Prophylaxis VTE prophylaxis: pharmacologic ordered (Heparin drip per protocol) -Patient's previous records reviewed on admission -ER notes reviewed in detail on admission -discussed all findings and current treatment plan with patient/Family/POA -Consultations reviewed for recommendations -Patient's disposition for safe discharge discussed with vocational case manager Dictation performed by [employer] direct speech recognition software, therefore program manager rn variants and typographical errors may occur. Hospitalist MIPS Advance Care Plan I have confirmed that the patient's Advanced Care Plan is present, code status is documented, or surrogate decision maker is listed in patient medical record.: Yes Medication Reconciliation I have utilized all available resources to obtain, update and review the patients current medications (includes all prescriptions, OTC, herbals, cannabis, and nutritional supplements).: Yes The patient is not eligible for med reconciliation; the patient is in a emergent medical situation where delaying treatment would jeopardize the patients health.: No
[2024-09-28] MEDS: INSULIN GLARGINE (*BKC) 100 UNITS/ML 30 UNITS SUB-Q (21:00)
[2024-09-29 06:00] VITALS: BP 139/47; PULSE 72; RESP 18; TEMP 36.4; O2SAT 95
[2024-09-29 08:27] VITALS: PULSE 72
[2024-09-29] MEDS: INSULIN ASPART (*BKC) 100 UNITS/ML 6 UNITS SUB-Q ×2 (08:27→13:58)
[2024-09-29] MEDS: METOPROLOL TARTRATE 12.5 MG TABLET PO (08:27)
[2024-09-29] MEDS: ASPIRIN 81 MG ENTERIC TABLET PO (08:27)
[2024-09-29] MEDS: ATORVASTATIN 40 MG TABLET 80 MG PO (08:28)
[2024-09-29] MEDS: CLOPIDOGREL BISULFATE 75 MG TABLET PO (08:28)
--- NOTE | 2024-09-29 09:07 | P.DS_ITS ---
DS: Admitting Diagnosis Discharge Date 09/27/24 Admitting Diagnosis NSTEMI/Transaminitis/ SIRS/ encephalopathy/ new onset diabetes/ cholelithiasis DS: Discharge Diagnosis Discharge Diagnosis (1) Non-ST elevation HI (NSTEMI): Code(s): I21.4 - Non-ST elevation (NSTEMI) myocardial infarction Status: Acute (2) Hypertension: Code(s): I10 - Essential (primary) hypertension Status: Acute (3) Coronary artery disease: Qualifiers: Associated angina: without angina Coronary Disease-Associated Artery/Lesion type: [place] artery [place] vs. transplanted heart: [place] heart Qualified Code(s): I25.10 - Atherosclerotic heart disease of [place] coronary artery without angina pectoris Code(s): I25.10 - Atherosclerotic heart disease of [place] coronary artery without angina pectoris Status: Acute (4) Type 2 diabetes mellitus with hyperglycemia: Qualifiers: Diabetes mellitus snf insulin use: without termite control technician use Qualified Code(s): E11.65 - Type 2 diabetes mellitus with hyperglycemia Code(s): E11.65 - Type 2 diabetes mellitus with hyperglycemia Status: Acute (5) Transaminitis: Code(s): R74.01 - Elevation of levels of liver transaminase levels Status: Acute (6) Hepatic steatosis: Onset Date: 09/2024 Code(s): K76.0 - Fatty (change of) liver, not elsewhere classified Status: Acute (7) Hyperbilirubinemia: Code(s): E80.6 - Other disorders of bilirubin metabolism Status: Acute (8) Cholelithiasis: Qualifiers: Biliary obstruction: with biliary obstruction Cholecystitis acuity: acute and chronic Cholecystitis presence: with cholecystitis Cholelithiasis location: gallbladder Qualified Code(s): K80.13 - Calculus of gallbladder with acute and chronic cholecystitis with obstruction Code(s): K80.20 - Calculus of gallbladder without cholecystitis without obstruction Status: Acute (9) Hepatomegaly: Code(s): R16.0 - Hepatomegaly, not elsewhere classified Status: Acute (10) Pancreatic pseudocyst: Code(s): K86.3 - Pseudocyst of pancreas Status: Acute (11) SIRS (systemic inflammatory response syndrome): Code(s): R65.10 - Systemic inflammatory response syndrome (SIRS) of non-infectious origin without acute organ dysfunction Status: Acute (12) Bacteremia: Code(s): R78.81 - Bacteremia Status: Acute DS: Summary Hospital Course Reason for hospitalization: NSTEMI/Transaminitis/ SIRS/ encephalopathy/ new onset diabetes/ cholelithiasis/Hypertension/Bacteremia Hospital Course: Admission: Patient was a 69-year-old male with a past medical history of psoriatic arthritis on immune modulator therapy and obesity who presented to the ER from home via EMS due to increased weakness. Patient self is a poor historian despite being oriented to person place time and current events. As such the patient's provided some limited history. The patient only complained of being tired and weak. When I asked him will what brought him into the ER he would not be eye contact and would stare off into space. The patient's reports that the patient retired from the [employer] service 1 year ago. 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 Since he is retired the patient is simply sits in the chair in does not do much of anything. He does not exercise or walk. He has become progressively weaker and weaker. He only gets up to walk from the couch to the bathroom and back. Today he was unable to get up off of the toilet. She brought him into the ER because she felt he needed PT and OT evaluation and possible rehab placement. On arrival to the ER the patient was tachycardic and had a low-grade temperature at 99.9?. He had a normal white count. But his initial electrolyte panel did demonstrate anion gap with low serum bicarb and hyperglycemia with glucoses close 350. As he also had transaminitis with hyperbilirubinemia. He denied any abdominal pain, nausea or vomiting. However the patient did have an emesis bag at bedside. The patient had a CK just barely elevated above cutoff for normal. Initial troponin was negative with repeat troponins elevated. However EKG did not demonstrate evidence of acute ischemia in the patient denied chest pain. 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 BRIGIDO III flow. cardiology recommended continuing ASA 81 mg, Plavix 75 daily for 1 year initially a statin was started however had to discontinue due to transaminitis. Cardiology also lisinopril 2.5 due to patient's noted aneurysm and metoprolol decreased to 12.5 patient is to follow up with Cardiology in 1 month post discharge. Patient continued to be Hypertensive during his hospitalization his metoprolol, lisinopril were continued and I added Procardia 30 mg. had temp admission patient was hyperglycemic an A1c was reformed showing 10.6 patient no previous history new onset diabetes was placed on Lantus lispro and consulted with nature photographer. patient to transaminitis Total bilirubin 2.4, AST 487, ALT 402, CPK 319,CT abdomen showed gallstone, fatty liver, Consult GI and general surgeon for evaluation treatment. 09/20 MRCP1. Cholelithiasis without choledocholithiasis or biliary dilation. 2. Hepatomegaly with prominent diffuse hepatic steatosis. 3. 2.1 x 1.2 cm likely pseudocyst related to prior acute pancreatitis along the tail of the pancreas. 4. Very small sliding-type hiatal hernia. Improved and HIDA scan suggests hepatic primary disfunction GI was consulted plans for follow-up outpatient. patient's initial blood cultures also came back with bacteremia due to Klebsiella pansensitive other than ampicillin and was placed on Augmentin 2nd set of cultures remain no growth unsure source infection but patient continued with WBC and afebrile. Patient seen and assessed time of discharge in no acute distress and no further complaints with been chair with at bedside reviewed over new diabetes diagnosis as his hypertension both patient spouse acknowledged agreed with discharge patient was discharged to [facility] for further physical and occupational therapy. Status at Discharge Functional status at discharge: uses cane/walker Overall status at discharge: patient is progressing back to baseline Time Spent with Patient Time attestation: Total time spent providing and/or coordinating discharge services: Time spent: Greater than 30 minutes Exam Narrative: GENERAL: Pleasant, in no acute distress. Well-nourished. - EYES: EOMI. Anicteric. - HENT: Moist mucous membranes. - LUNGS: Clear to auscultation bilateral ly, no wheezing, rhonchi, or rales. - CARDIOVASCULAR: Regular rate and rhyth m. No murmur. No JVD. - ABDOMEN: Soft, non-tender and non-dist ended. No palpable masses. - EXTREMITIES: No edema. Peripheral puls es 2+. Non-tender. - NEUROLOGIC: No focal neurological defi cits. CN II-XII grossly intact. - PSYCHIATRIC: Awake, Alert and oriented x 3. Appropriate mood and affect. - SKIN: No rashes or lesions. Warm. DS: Data Data Completed and Pending Labs on day of discharge: Labs from last 24 hours 09/29/24 09/29/24 09/28/24 08:59 07:26 20:28 WBC Pending RBC Pending Hgb Pending Hct Pending MCV Pending MCH Pending MCHC Pending RDW Pending Plt Count Pending MPV Pending Sodium Pending Potassium Pending Chloride Pending Carbon Dioxide Pending Anion Gap Pending BUN Pending Creatinine Pending Estim Creat Clear Calc Pending Estimated GFR Pending Glucose Pending POC Capillary Glucose 169 H 185 H Calcium Pending Total Bilirubin Pending AST Pending ALT Pending Alkaline Phosphatase Pending Total Protein Pending Albumin Pending 09/28/24 09/28/24 16:40 11:28 WBC RBC Hgb Hct MCV MCH MCHC RDW Plt Count MPV Sodium Potassium Chloride Carbon Dioxide Anion Gap BUN Creatinine Estim Creat Clear Calc Estimated GFR Glucose POC Capillary Glucose 162 H 162 H Calcium Total Bilirubin AST ALT Alkaline Phosphatase Total Protein Albumin Preliminary micro results at discharge 09/23/24 09:52 Blood Culture - Preliminary Blood 09/23/24 09:47 Blood Culture - Preliminary Blood Imaging Radiologist's impression: Radiology Results: ITS Impressions Chest X-Ray 09/20/24 20:34 IMPRESSION: No focal infiltrate or effusion. Abdomen/Pelvis CT 09/20/24 23:03 IMPRESSION: Fatty infiltration of a markedly enlarged liver. Cholelithiasis. Findings caudal to the tail of the pancreas for which an early pseudocyst formation versus carcinoid is suspected. Nonobstructing stones within the bilateral kidneys. Chest CTA 09/21/24 15:12 IMPRESSION: 1. No pulmonary embolism. 2. No acute cardiopulmonary pathology. 3. Fat infiltration of the liver. 4. Cholelithiasis. 5. Left adrenal adenoma. No follow-up advised unless clinically warranted. MRCP 09/22/24 13:24 IMPRESSION: 1. Cholelithiasis without choledocholithiasis or biliary dilation. 2. Hepatomegaly with prominent diffuse hepatic steatosis. 3. 2.1 x 1.2 cm likely pseudocyst related to prior acute pancreatitis along the tail of the pancreas. 4. Very small sliding-type hiatal hernia. Head CT 09/23/24 11:27 Impression: No acute intracranial hemorrhage or suspicious mass effect. Brain MRI 09/23/24 12:08 IMPRESSION: 1. Normal for age brain. No acute intracranial process. Hepatobiliary Scan Nuclear Medicine 09/23/24 13:38 IMPRESSION: 1. Severe hepatocellular dysfunction with no excretion of gallbladder activity rendering assessment for cystic duct obstruction/acute cholecystitis nondiagnostic. Abdomen Ultrasound 09/24/24 15:26 IMPRESSION: Fat infiltration of the liver. Cyst in the left lobe of the liver. Hypoechoic area in the dome of the liver with vascularity which may represent a hemangioma versus a mass. Follow-up and further evaluation advised. Otherwise, normal limited abdominal ultrasound. Discharge Plan Discharge Attending physician on discharge: Americo Daley Consulting providers: Griselda Juarez; Mary Combs Discharging Clinician: Mary Combs Anticipated Discharge Date/Time: 09/29/24 08:45 Patient Disposition: [facility] Activity: as tolerated Diet: as tolerated Discharge Instructions: 1). Diabetes New Onset * Please continue to monitor your blood sugars as indicated * I have prescribed Insulin monitor for signs of hypoglycemia information attached * You will need a follow-up A1C in 3 months recommend referral to Print Shop Stenographer * I recommend a diabetic diet information attached 2). coronary artery disease * resume taking your aspirin 81 mg and Plavix 71 mg daily * follow-up with Cardiology 3). Bacteremia (blood infection) * You have prescribed an oral antibiotic please take and complete as indicated even if feeling better 4). Hypertension (high blood pressure) * I have prescribed blood pressure lower medication please take as indicated and monitor BP may follow-up with Cardiology or primary care physician 5). elevated Liver enzymes * I have ordered a follow-up lab to be completed outpatient prior to following up with GI outpatient with Dr. Shane/Mirta How can you care for yourself at home? ? Keep track of any new symptoms or changes in your symptoms. ? Rest until you feel better. ? Be safe with medicines. Take your medicines exactly as prescribed. Call your doctor if you think you are having a problem with your medicine. ? Do not drive after taking a prescription pain medicine. ? Ensure to follow-up with primary care physician as indicated and provide updated medication list provided to you at discharge. When should you call for help? Call 911 anytime you think you may need emergency care. For example, call if: ? You passed out (lost consciousness). Call your doctor now or seek immediate medical care if: ? You have new symptoms like fever, difficulty breathing, Chest pain, vomiting, or rash. ? You have new or different pain. ? You are confused and are having trouble thinking clearly. ? Your symptoms are getting worse. Watch closely for changes in your health, and be sure to contact your doctor if: ? You do not get better as expected. Patient Instructions: Antibiotic Form, Coronary Artery Disease (DC), Foot Care for People with Diabetes (DC), Hypoglycemia in a Person with Diabetes (DC), Type 2 Diabetes in Adults: New Diagnosis (DC), Managing Diabetes During Sick Days (DC), Diabetic Kidney Disease (DC), Bacteremia (DC), Hypertension in the Older Adult (DC), Hypertension and Diabetes (DC), What to Do if Your Blood Sugar is Low (DC), Diabetes and Nutrition (DC), Diabetes and Exercise (DC), Transaminitis (GEN) Patient Language: [place] Follow-up/Referrals: Osito Kirby MD [Physician] - (Patient needs to call GI to make follow- up appointment) Roberto Simon MD [Primary Care Provider] - (See PCP in 1 week) Discharge Medications: New insulin glargine [Lantus U-100 Insulin] 100 unit/mL Solution 30 unit subcut HS Qty: 10 0RF clopidogrel 75 mg Tablet 75 mg PO QAM Qty: 60 1RF aspirin 81 mg Tablet,Delayed Release (Dr/Ec) 81 mg PO BID Qty: 60 1RF insulin aspart U-100 [Novolog U-100 Insulin aspart] 100 unit/mL Solution 6 unit subcut TIDWM Qty: 10 1RF insulin aspart U-100 [Novolog U-100 Insulin aspart] 100 unit/mL Solution 4 - 8 unit subcut TIDWM Qty: 10 0RF Protocol: Insulin Corrective High-Dose Condition: glucose < 70 mg/dl Dose/Route: Follow hypoglycemia order Condition: glucose 70-200 mg/dl Dose/Route: No additional insulin Condition: glucose 201-250 mg/dl Dose/Route: 4 units sub-Q Condition: glucose 251-300 mg/dl Dose/Route: 5 units sub-Q Condition: glucose 301-350 mg/dl Dose/Route: 6 units sub-Q Condition: glucose 351-400 mg/dl Dose/Route: 8 units sub-Q Condition: glucose > 400 mg/dl Dose/Route: Call Protocol Text: *No Correction Dose at Bedtime* Rx Instructions: Instruction glucose < 70 mg/dl Follow hypoglycemia order glucose 70-200 mg/dl No additional insulin glucose 201-250 mg/dl 4 units sub-Q glucose 251-300 mg/dl 5 units sub-Q glucose 301-350 mg/dl 6 units sub-Q glucose 351-400 mg/dl 8 units sub-Q glucose > 400 mg/dl Call insulin aspart U-100 [Novolog U-100 Insulin aspart] 100 unit/mL Solution 2 - 4 unit subcut HS Qty: 10 0RF Protocol: Insulin Corrective High-Dose Condition: glucose < 70 mg/dl Dose/Route: Follow hypoglycemia order Condition: glucose 70-200 mg/dl Dose/Route: No additional insulin Condition: glucose 201-250 mg/dl Dose/Route: 2 units sub-Q Condition: glucose 251-300 mg/dl Dose/Route: 2 units sub-Q Condition: glucose 301-350 mg/dl Dose/Route: 3 units sub-Q Condition: glucose 351-400 mg/dl Dose/Route: 4 units sub-Q Condition: glucose > 400 mg/dl Dose/Route: Call Rx Instructions: Instruction glucose < 70 mg/dl Follow hypoglycemia order glucose 70-200 mg/dl No additional insulin glucose 201-250 mg/dl 2 units sub-Q glucose 251-300 mg/dl 2 units sub-Q glucose 301-350 mg/dl 3 units sub-Q glucose 351-400 mg/dl 4 units sub-Q glucose > 400 mg/dl Call (TERRA) blood-glucose meter [OneTouch Verio Flex meter] [facility] Qty: 1 0RF Rx Instructions: May substitute to in-stock meter and/or covered by insurance. Use As Directed (DME) OneTouch Verio test strips Strip Qty: 1 0RF Rx Instructions: May substitute to in-stock and/or covered by insurance strips. Use As Directed (DME) pen needle, diabetic 32 gauge x 5/32 Needle Qty: 1 0RF Rx Instructions: As Directed (DME) lancets [OneTouch Delica Plus Lancet] 30 gauge misc Qty: 1 0RF Rx Instructions: May substitute to in-stock and/or covered by insurance lancets. Use As Directed amoxicillin-pot clavulanate 875-125 mg tablet 1 tablet PO Q12H Qty: 2 0RF nifedipine [Procardia XL] 30 mg Tablet Extended Release 24hr 30 mg PO QAM Qty: 30 0RF lisinopril 2.5 mg Tablet 2.5 mg PO QAM Qty: 30 0RF metoprolol tartrate 25 mg tablet 12.5 mg PO BID Qty: 60 0RF Continued ustekinumab [Stelara] 90 mg/mL syringe 90 mg SUBCUT [id number] Patient Comments: pt took inJune Rx Instructions: subcutaneously; Date of admission: 09/21/24 00:29 Primary Care Provider: Roberto Simon Admitting Provider: Lisa Robison Attending physician on admission: Lisa Robison Condition: Improved Quality VTE Prophylaxis VTE prophylaxis: mechanical ordered -Patient's previous records reviewed on admission -ER notes reviewed in detail on admission -discussed all findings and current treatment plan with patient/Family/POA -Consultations reviewed for recommendations -Patient's disposition for safe discharge discussed with outsole caser Dictation performed by [employer] direct speech recognition software, therefore residential counselor variants and typographical errors may occur. Hospitalist MIPS Heart Failure (Exclusion) Patient has history of Heart Transplant or Left Ventricular Assistive Device?: No IF YES, STOP HERE Heart Failure (Qualifier) Patient has current or prior documentation of LVEF less than or equal to 40%, or mod/servere depressed LVSF?: No IF NO, STOP HERE
[2024-09-29 09:10] LABS: Hematocrit 42.2 % (42.0-52.0); Hemoglobin 13.7 g/dL (14.0-18.0); Mean Corpuscular HGB Conc 32.5 g/dl (32-36); Mean Corpuscular Hemoglobin 30.4 pg (26-34); Mean Corpuscular Volume 93.6 fl (80-100); Platelet Count Result 221 k/mm3 (150-375); Red Blood Count 4.51 M/mm3 (4.6-6.20); White Blood Count 6.4 K/mm3 (4.5-10.0)
[2024-09-29 09:29] LABS: Alanine Aminotransferase 132 U/L (6-50); Albumin Level 3.7 g/dL (3.5-5.1); Alkaline Phosphatase 162 U/L (38-126); Anion Gap 8 mmol/L (4-12); Aspartate Amino Transferase 112 U/L (17-59); Bilirubin,Total 1.3 mg/dL (0.2-1.3); Blood Urea Nitrogen 11 mg/dL (9-20); Calcium 9.1 mg/dL (8.4-10.2); Carbon Dioxide 27 mmol/L (22-30); Chloride 102 mmol/L (98-107); Estimated CRCL calculation 74 ml/min; Estimated Glomerular Filt Rate > 60; Glucose 200 mg/dL (65-110); Potassium 4.0 mmol/L (3.4-5.0); Sodium 137 mmol/L (137-145); Total Protein 8.6 g/dL (6.3-8.2)
== END 2024-09-29 14:55 | DRG 871 ==
LOC: ANHED 09-21 00:43 → ANH3MEDSUR 09-21 01:42 → ANHIMU 09-21 03:11 → ANH2MED 09-25 12:24
PROVIDERS: Emergency Medicine; Hospitalist; Internal Medicine Interventional Cardiology; Surgery; Admitting Provider Internal Medicine; Emergency Provider Emergency Medicine; PCP Family Medicine Adolescent Medicine; Visit Provider Nurse Practitioner Family
PROC: 4A023N7 Measurement of Cardiac Sampling and Pressure, Left Heart, Percutaneous Approach (ICD-10-PCS; CPT 93452; principal; 2024-09-22 13:00)
DX: A41.59 Other Gram-negative sepsis (principal); G92.8 Other toxic encephalopathy; I21.4 Non-ST elevation (NSTEMI) myocardial infarction; G93.41 Metabolic encephalopathy; K86.3 Pseudocyst of pancreas; R65.20 Severe sepsis without septic shock; I25.10 Atherosclerotic heart disease of native coronary artery without angina pectoris; L40.50 Arthropathic psoriasis, unspecified; K76.89 Other specified diseases of liver; M62.542 Muscle wasting and atrophy, not elsewhere classified, left hand; M62.541 Muscle wasting and atrophy, not elsewhere classified, right hand; M62.562 Muscle wasting and atrophy, not elsewhere classified, left lower leg; M62.561 Muscle wasting and atrophy, not elsewhere classified, right lower leg; K80.20 Calculus of gallbladder without cholecystitis without obstruction; R16.0 Hepatomegaly, not elsewhere classified; K76.0 Fatty (change of) liver, not elsewhere classified; R62.7 Adult failure to thrive; E11.65 Type 2 diabetes mellitus with hyperglycemia; N20.0 Calculus of kidney; E80.6 Other disorders of bilirubin metabolism; I25.41 Coronary artery aneurysm; I10 Essential (primary) hypertension; R74.01 Elevation of levels of liver transaminase levels; Z20.822 Contact with and (suspected) exposure to COVID-19; E66.9 Obesity, unspecified; Z68.38 Body mass index [BMI] 38.0-38.9, adult; Z85.828 Personal history of other malignant neoplasm of skin; Z79.60 Long term (current) use of unspecified immunomodulators and immunosuppressants; Z87.891 Personal history of nicotine dependence; B96.1 Klebsiella pneumoniae [K. pneumoniae] as the cause of diseases classified elsewhere
CPT/HCPCS: 36415; 36600; 70450; 70551; 71045; 71275; 74177; 74183; 76376; 76705; 78226; 80053; 80074; 80202; 81001; 82010; 82140; 82550; 82728; 82805; 82948; 83036; 83605; 83690; 83735; 84443; 84484; 85018; 85025; 85027; 85055; 85380; 85610; 85730; 87040; 87637; 93005; 93306; 93458; 96360; 96361; 97110; 97161; 97165; 97530; 97535; 99285; A9270; A9537; A9577; C1769; C1887; C1894; J0360; J1644; J1815; J2250; J2543; J3010; J3373; J3475; J7030; Q9967